=== PATIENT | male | born 1950 | race Caucasian/White ===

== ENCOUNTER 2016-11-04 14:14 | Inpatient (IN) | payer BC, OTHER ==
[~2016-11-04] VITALS: Ht 170.2 cm; Wt 91.7 kg
[~2016-11-04 14:14] MED LIST: AMLO-114 PO; LISI40TA PO; POTA-335 PO; ZFRODT4 SL; ZNTT/150 PO
[2016-11-04] MEDS ORDERED: PANTOprazole INJ 80 MG in DEXTROSE 5% 100ML 100 ML IV STA (14:31)
[2016-11-04] MEDS ORDERED: SODIUM CHLORIDE 0.9% 1000ML 500 ML IV STA (14:31)
--- NOTE | 2016-11-04 14:57 | EMERGENCY ROOM VISIT NOTE ---
History Report prepared by Derrick: Jessy Larsen Under the Supervision of: Dr. Moses Meneses M.D. First contact with patient: 14:27 Chief Complaint: VOMITING Stated Complaint: SICK TO STOMACH, VOMITING, REF BY DR Song Triage Summary: Triage note: Pt reports nausea, vomitting diarrhea since yesterday. pt girlfriend pt emesis yesterday looked coffee grounds. History of Present Illness The patient is a 66 year old male who presents to the Emergency Room with complaints of multiple episodes of vomiting occurring yesterday. He notes that the vomit looked like coffee grounds and he could taste blood in his mouth. The patient notes that he has not had a vomiting episode today. He notes epigastric abdominal pain and weakness. The patient states that he had a few pieces of toast this morning. Patient denies melena, history of stomach bleeds, blood thinner use, chest pain, or current nausea. He was referred to the ED by his PCP. Source of History: patient Onset: yesterday Position: other (global) Symptom Intensity: multiple Quality: other (vomiting) Timing: other (episodes) Associated Symptoms: + abdominal pain, + weakness, No chest pain, No melena Review of Systems See HPI for pertinent positives & negatives. A total of 10 systems reviewed and were otherwise negative. Past Medical & Surgical Medical Problems: (1) hemmoragic stroke (2) Kidney stones Family History Diabetes mellitus FH: heart disease FHx: gallbladder disease Hypertension Kidney stones Social History Smoking Status: Never Smoker Alcohol Use: none Marital Status: in relationship Housing Status: lives with significant other Occupation Status: retired Current/Historical Medications Scheduled Amlodipine Besylate (Amlodipine Besylate), 10 MG PO QPM Aspirin (Aspirin Ec), 81 MG PO QPM Lisinopril (Lisinopril), 10 MG PO QPM Multivitamin (Multivitamin), 1 TAB PO QPM Ranitidine HCl (Ranitidine HCl), 150 MG PO QPM Simvastatin (Zocor), 10 MG PO QPM Allergies Coded Allergies: Penicillins (Verified Allergy, Mild, 11/04/16) [place] (Verified Allergy, Unknown, 11/04/16) Physical Exam Vital Signs Date Time Temp Pulse Resp B/P Pulse Ox O2 Delivery O2 Flow Rate FiO2 11/04/16 15:14 77 11/04/16 14:49 Room Air 11/04/16 14:19 37.1 89 20 132/87 93 Room Air Physical Exam GENERAL: Patient is in no acute distress. HEENT: No acute trauma, normocephalic atraumatic, mucous membranes moist, no nasal congestion, no scleral icterus. NECK: No stridor, no adenopathy, no meningismus, trachea is midline. LUNGS: Clear to auscultation bilaterally, no wheeze, no rhonchi, breath sounds equal. HEART: Without murmurs gallops or rubs, regular rate and rhythm. ABDOMEN: Soft, nontender, bowel sounds positive, no hernias, no peritonitis. RECTAL: Dark stool, quickly heme positive. EXTREMITIES: No cyanosis or edema, full range of motion of all the joints without pain or difficulty, no signs for acute trauma. NEUROLOGIC: Oriented x 3, no acute motor or sensory deficits, no focal weakness. SKIN: No rash, no jaundice, no diaphoresis. Pale. Medical Decision & Procedures ER Provider Diagnostic Interpretation: X-ray results as stated below per interpretation by me and the radiologist: CHEST ONE VIEW PORTABLE CLINICAL HISTORY: Vomiting. GI bleed. COMPARISON STUDY: Chest radiograph February 27, 2008 FINDINGS: There is no pneumothorax. Lung volumes are diminished. There is mild left basilar opacity. Pulmonary vascularity is normal. Moderate enlargement of the cardiac silhouette is noted. IMPRESSION: 1. Diminished lung volumes with mild left basilar opacity which favors atelectasis. 2. Borderline cardiomegaly. No pulmonary edema. Electronically signed by: Drake Ryan M.D. 11/04/2016 3:12 PM Dictated Date/Time: 11/04/2016 3:11 PM Laboratory Results 11/04/16 14:43 Red Blood Count 4.79, Mean Corpuscular Volume 85.6, Mean Corpuscular Hemoglobin 29.2, Mean Corpuscular Hemoglobin Concent 34.1, Mean Platelet Volume 8.4, Neutrophils (%) (Auto) 62.7, Lymphocytes (%) (Auto) 25.1, Monocytes (%) (Auto) 9.8, Eosinophils (%) (Auto) 2.1, Basophils (%) (Auto) 0.2, Neutrophils # (Auto) 5.58, Lymphocytes # (Auto) 2.24, Monocytes # (Auto) 0.87, Eosinophils # (Auto) 0.19, Basophils # (Auto) 0.02 1/20/17 14:43 Test 11/04/16 14:43 White Blood Count 8.91 K/uL (4.8-10.8) Red Blood Count 4.79 M/uL (4.7-6.1) Hemoglobin 14.0 g/dL (14.0-18.0) Hematocrit 41.0 % (42-52) Mean Corpuscular Volume 85.6 fL (80-100) Mean Corpuscular Hemoglobin 29.2 pg (25-34) Mean Corpuscular Hemoglobin Concent 34.1 g/dl (32-36) Platelet Count 278 K/uL (130-400) Mean Platelet Volume 8.4 fL (7.4-10.4) Neutrophils (%) (Auto) 62.7 % Lymphocytes (%) (Auto) 25.1 % Monocytes (%) (Auto) 9.8 % Eosinophils (%) (Auto) 2.1 % Basophils (%) (Auto) 0.2 % Neutrophils # (Auto) 5.58 K/uL (1.4-6.5) Lymphocytes # (Auto) 2.24 K/uL (1.2-3.4) Monocytes # (Auto) 0.87 K/uL (0.11-0.59) Eosinophils # (Auto) 0.19 K/uL (0-0.5) Basophils # (Auto) 0.02 K/uL (0-0.2) RDW Standard Deviation 43.5 fL (36.4-46.3) RDW Coefficient of Variation 14.0 % (11.5-14.5) Immature Granulocyte % (Auto) 0.1 % Immature Granulocyte # (Auto) 0.01 K/uL (0.00-0.02) Prothrombin Time 10.5 SECONDS (9.0-12.0) Prothromb Time International Ratio 1.0 (0.9-1.1) Activated Partial Thromboplast Time 26.8 SECONDS (21.0-31.0) Partial Thromboplastin Ratio 1.0 Anion Gap 10.0 mmol/L (3-11) Est Creatinine Clear Calc Drug Dose 60.4 ml/min Estimated GFR () 65.9 Estimated GFR (Non- 56.9 BUN/Creatinine Ratio 14.1 (10-20) Calcium Level 8.4 mg/dl (8.5-10.1) Total Bilirubin 0.9 mg/dl (0.2-1) Aspartate Amino Transf (AST/SGOT) 18 U/L (15-37) Alanine Aminotransferase (ALT/SGPT) 18 U/L (12-78) Alkaline Phosphatase 54 U/L (45-117) Total Protein 7.1 gm/dl (6.4-8.2) Albumin 3.5 gm/dl (3.4-5.0) Globulin 3.6 gm/dl (2.5-4.0) Albumin/Globulin Ratio 1.0 (0.9-2) Lipase 150 U/L (73-393) Laboratory results reviewed by me. Medications Administered Medications (Trade) Dose Ordered Sig/Kavita Route Start Time Stop Time Status Last Admin Dose Admin Sodium Chloride 500 ml @ 999 mls/hr Q31M STAT IV 11/04/16 14:31 11/04/16 15:02 DC 11/04/16 14:55 999 MLS/HR Pantoprazole Sodium/Dextrose (Protonix Inj/D5 100ml) 120 ml @ 400 mls/hr NOW STAT IV 11/04/16 14:31 11/04/16 14:48 DC 11/04/16 15:17 400 MLS/HR ECG Indication: vomiting Rate (beats per minute): 89 Rhythm: normal sinus Findings: no acute ischemic change, no ectopy ED Course 1429: The patient was evaluated in room B5. A complete history and physical exam was performed. 1431: Pantoprazole Sodium 80 mg/ Dextrose 120 ml @ 400 mls/hr IV, Sodium Chloride 500 ml @ 999 mls/hr IV. 1544: Discussed the patient's case with Dr. Mills - [facility] [place] The patient will be evaluated for further management. Medical Decision The patient is a 66 year old male who presents to the ED with complaints of vomiting. Differential diagnoses considered include upper or lower GI bleeding , ulcer, gastritis, anemia, dehydration, electrolyte imbalance, viral illness. There is no leukocytosis or concerning anemia. No significant electrolyte abnormality, kidney failure, hepatitis or pancreatitis. There is no coagulopathy. EKG shows a sinus rhythm, there is no acute ischemia. On my exam , the stool was dark in color and heme positive. The patient received IV saline and IV Protonix. He did not need anything for nausea or pain. The patient is likely suffering from some upper GI bleeding. He describes hematemesis yesterday and today his stool is heme positive by my testing. Given the findings, admission/observation is warranted. I spoke to the patient and case management. The on-call hospitalist was consulted. Consults Time Called: 154 Consulting Physician: Dr. Gene HUTCHISON Returned Call: [phone] Discussed the patient's case. The patient will be evaluated for further management. Impression Primary Impression: Hematemesis Additional Impression: GI bleeding Scribe Attestation The scribe's documentation has been prepared under my direction and personally reviewed by me in its entirety. I confirm that the note above accurately reflects all work, treatment, procedures, and medical decision making performed by me. Departure Information Dispostion Being Evaluated By Hospitalist Referrals Tara Polanco C.R.N.P. (PCP) Problem Qualifiers
[2016-11-04 15:04] LABS: BASO % 0.2 %; BASO ABS # 0.02 K/uL (0-0.2); COMPLETE YES; EOS % 2.1 %; IG% 0.1 %; LYMPH % 25.1 %; LYMPH ABS # 2.24 K/uL (1.2-3.4); MEAN CELL VOLUME 85.6 fL (80-100); MEAN CORPUSCULAR HEMOGLOBIN 29.2 pg (25-34); MEAN CORPUSCULAR HGB CONC 34.1 g/dl (32-36); MEAN PLATELET VOLUME 8.4 fL (7.4-10.4); MONO % 9.8 %; NEUT % 62.7 %; PLATELET COUNT 278 K/uL (130-400); RED BLOOD COUNT 4.79 M/uL (4.7-6.1); WHITE BLOOD COUNT 8.91 K/uL (4.8-10.8)
[2016-11-04 15:12] LABS: PROTHROMBIN TIME (PATIENT) 10.5 SECONDS (9.0-12.0)
--- NOTE | 2016-11-04 15:14 | DIAGNOSTIC IMAGING REPORT ---
CHEST ONE VIEW PORTABLE CLINICAL HISTORY: Vomiting. GI bleed. COMPARISON STUDY: Chest radiograph February 27, 2008 FINDINGS: There is no pneumothorax. Lung volumes are diminished. There is mild left basilar opacity. Pulmonary vascularity is normal. Moderate enlargement of the cardiac silhouette is noted. IMPRESSION: 1. Diminished lung volumes with mild left basilar opacity which favors atelectasis. 2. Borderline cardiomegaly. No pulmonary edema. Electronically signed by: Drake Ryan M.D. 11/04/2016 3:12 PM Dictated Date/Time: 11/04/2016 3:11 PM
[2016-11-04 15:21] LABS: BUN/CREATININE RATIO 14.1 (10-20); CALCIUM 8.4 mg/dl (8.5-10.1); CREATININE 1.3 mg/dl (0.60-1.40); POTASSIUM 3.7 mmol/L (3.5-5.1)
[2016-11-04] MEDS ORDERED: ZNT150 PO (15:25)
[2016-11-04] MEDS ORDERED: SIMV10TA2 PO (15:25)
[2016-11-04] MEDS ORDERED: ASPI81TA28 PO (15:25)
[2016-11-04] MEDS ORDERED: MULT-506 PO (15:25)
[2016-11-04] MEDS ORDERED: LISI-461 PO (15:25)
[2016-11-04] MEDS ORDERED: NRV/10 PO (15:25)
[2016-11-04] MEDS ORDERED: ONDANSETRON INJ 2 MG/ML 2 ML VIAL IV PRN (16:30)
[2016-11-04] MEDS ORDERED: DiphenhydrAMINE HCL 50 MG/ML VIAL IV PRN (16:30)
[2016-11-04] MEDS ORDERED: LORAZEPAM 2 MG/ML 1 ML VIAL IV PRN (16:30)
[2016-11-04] MEDS ORDERED: HydrALAZINE HCL 20 MG/ML VIAL IV. PRN ×2 (16:30→20:30)
[2016-11-04] MEDS ORDERED: ACETAMINOPHEN IV 100 ML IV PRN (16:30)
[2016-11-04] MEDS ORDERED: MoRPHine SULFATE 2 MG/ML CARP IV PRN (16:30)
[2016-11-04] MEDS ORDERED: PROMETHAZINE HCL INJ 12.5 MG in SODIUM CHLORIDE 0.9% 50ML 50 ML IV PRN (16:30)
[2016-11-04] MEDS ORDERED: NITROGLYCERIN 0.4 MG SL PER TAB CHARGE SL PRN (16:30)
[2016-11-04 17:50] LABS: HEMATOCRIT 39.6 % (42-52)
[2016-11-04 18:12] VITALS: BP 114/75; PULSE 79; TEMP 36.7; O2SAT 95; Ht 170.2 cm; Wt 91.7 kg
[2016-11-04] MEDS: PANTOprazole INJ 40 MG in DEXTROSE 5% 100ML IV SCH ×2 (18:42→23:03)
[2016-11-04] MEDS: NSS + 20MEQ KCL 1000ML 1,000 ML IV SCH (18:42)
[2016-11-04] MEDS ORDERED: PANTOprazole INJ 80 MG in DEXTROSE 5% 100ML IV ONE (18:45)
[2016-11-04 19:02] VITALS: BP 109/75; PULSE 73; TEMP 37; O2SAT 92
--- NOTE | 2016-11-04 20:29 | History and Physical ---
History & Physical Date & Time of Service: Nov 04, 2016 at 20:15 Chief Complaint: Acute Upper Gi Bleeding,Hematemesis Primary Care Physician: Tara Polanco C.R.N.P. History of Present Illness Source: patient, spouse The patient is a 66-year-old male presents emergency department with complaint of frequent episodes of coffee-ground vomiting that occurred yesterday, and has had epigastric abdominal discomfort, generalized weakness and loose stools today. He does have a history of a hemorrhagic stroke, and does take aspirin 81 mg daily around 5 or 6:00 every evening with supper. He's had no blood in stool he had no wes blood in emesis. 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 She reports that he is disabled, and goes outside the house very infrequently, and there are no sick people that commonly enter the house. She also reports that he does have persistent left lower extremity weakness and has had persistent bilateral hand tingling as well since the previous stroke. Family History Diabetes mellitus FH: heart disease FHx: gallbladder disease Hypertension Kidney stones Social History Smoking Status: Never Smoker Smokeless Tobacco Use: No Alcohol Use: none Drug Use: none Marital Status: , in relationship Housing status: lives with family Occupational Status: retired Immunizations History of Influenza Vaccine: No History of Tetanus Vaccine?: No History of Pneumococcal: No History of Hepatitis B Vaccine: No Multi-Drug Resistant Organisms History of MDRO: No Allergies Coded Allergies: Penicillins (Verified Allergy, Mild, 11/04/16) [place] (Verified Allergy, Unknown, 11/04/16) Home Medications Scheduled Amlodipine Besylate (Amlodipine Besylate), 10 MG PO QPM Aspirin (Aspirin Ec), 81 MG PO QPM Lisinopril (Lisinopril), 10 MG PO QPM Multivitamin (Multivitamin), 1 TAB PO QPM Ranitidine HCl (Ranitidine HCl), 150 MG PO QPM Simvastatin (Zocor), 10 MG PO QPM Review of Systems The patient denies chest pain, palpitations, shortness of breath, cough, lower extremity swelling, vision change, hearing change, sore throat, fevers, chills, sweats, weight change, blood in urine or stool, dysuria, urinary frequency or urgency, lightheadedness, dizziness, headache, rash, abnormal bruising , imbalance, arthralgias or myalgias, back or neck pain, night sweats, or allergy symptoms. The review of systems is otherwise negative other than for that already noted above, and at least 10 systems have been reviewed. Physical Exam Vital Signs Date Time Temp Pulse Resp B/P Pulse Ox O2 Delivery O2 Flow Rate FiO2 11/04/16 19:02 37.0 73 16 109/75 92 Room Air 11/04/16 18:12 36.7 79 18 114/75 95 Room Air 11/04/16 16:27 74 19 111/76 93 11/04/16 15:14 77 11/04/16 14:49 Room Air 11/04/16 14:19 37.1 89 20 132/87 93 Room Air The patient is awake, alert and oriented 3, normocephalic and atraumatic, is slow with answers, lying in bed and in no acute distress. HEENT--PERRL, EOMI, mucous membranes moist, and oropharynx normal. Neck--supple, no JVD or bruits, thyroid normal, trachea midline, no adenopathy. Heart--normal S1 and S2, no extra beats, no murmurs, rubs or gallops. Lungs--clear bilaterally with good air movement, no respiratory distress, no accessory muscle use. Abdomen--normal bowel sounds and soft, nontender and nondistended, no hernias or masses, no organomegaly. Extremities--no cyanosis, clubbing or edema. There are good distal pulses b/l. Dermatologic--normal skin turgor, normal color, warm and dry, no abnormal lymph nodes, no rash. Neurologic--cranial nerves II through XII grossly intact, regional liaison strength even upper extremities, with left lower extremity 4+ out of 5 compared to right 5 out of 5. Psychiatric--normal affect. Diagnostics Laboratory Results Results Past 24 Hours Test 11/04/16 14:43 11/04/16 17:32 Range/Units White Blood Count 8.91 4.8-10.8 K/uL Red Blood Count 4.79 4.7-6.1 M/uL Hemoglobin 14.0 13.2 14.0-18.0 g/dL Hematocrit 41.0 39.6 42-52 % Mean Corpuscular Volume 85.6 80-100 fL Mean Corpuscular Hemoglobin 29.2 25-34 pg Mean Corpuscular Hemoglobin Concent 34.1 32-36 g/dl Platelet Count 278 130-400 K/uL Mean Platelet Volume 8.4 7.4-10.4 fL Neutrophils (%) (Auto) 62.7 % Lymphocytes (%) (Auto) 25.1 % Monocytes (%) (Auto) 9.8 % Eosinophils (%) (Auto) 2.1 % Basophils (%) (Auto) 0.2 % Neutrophils # (Auto) 5.58 1.4-6.5 K/uL Lymphocytes # (Auto) 2.24 1.2-3.4 K/uL Monocytes # (Auto) 0.87 0.11-0.59 K/uL Eosinophils # (Auto) 0.19 0-0.5 K/uL Basophils # (Auto) 0.02 0-0.2 K/uL RDW Standard Deviation 43.5 36.4-46.3 fL RDW Coefficient of Variation 14.0 11.5-14.5 % Immature Granulocyte % (Auto) 0.1 % Immature Granulocyte # (Auto) 0.01 0.00-0.02 K/uL Prothrombin Time 10.5 9.0-12.0 SECONDS Prothromb Time International Ratio 1.0 0.9-1.1 Activated Partial Thromboplast Time 26.8 21.0-31.0 SECONDS Partial Thromboplastin Ratio 1.0 Sodium Level 138 136-145 mmol/L Potassium Level 3.7 3.5-5.1 mmol/L Chloride Level 105 98-107 mmol/L Carbon Dioxide Level 23 21-32 mmol/L Anion Gap 10.0 3-11 mmol/L Blood Urea Nitrogen 18 7-18 mg/dl Creatinine 1.30 0.60-1.40 mg/dl Est Creatinine Clear Calc Drug Dose 60.4 ml/min Estimated GFR () 65.9 Estimated GFR (Non- 56.9 BUN/Creatinine Ratio 14.1 10-20 Random Glucose 101 70-99 mg/dl Calcium Level 8.4 8.5-10.1 mg/dl Total Bilirubin 0.9 0.2-1 mg/dl Aspartate Amino Transf (AST/SGOT) 18 15-37 U/L Alanine Aminotransferase (ALT/SGPT) 18 12-78 U/L Alkaline Phosphatase 54 45-117 U/L Total Protein 7.1 6.4-8.2 gm/dl Albumin 3.5 3.4-5.0 gm/dl Globulin 3.6 2.5-4.0 gm/dl Albumin/Globulin Ratio 1.0 0.9-2 Lipase 150 73-393 U/L Diagnostic Radiology Patient Name: DOMO YODER Unit Number: [id number] Dictated: 11/04/161510 Transcribed: 11/04/161510 Printed Date/Time: [~ rep prt dt]/[~ rep prt tm] [~ rep ct labl] - [~ rep ct ivnm] [facility] Radiology Department [place], [place] [id number] Dictated: 11/04/161510 Transcribed: 11/04/161510 Printed Date/Time: [~ rep prt dt]/[~ rep prt tm] [~ rep ct labl] - [~ rep ct ivnm] CHEST ONE VIEW PORTABLE CLINICAL HISTORY: Vomiting. GI bleed. COMPARISON STUDY: Chest radiograph February 27, 2008 FINDINGS: There is no pneumothorax. Lung volumes are diminished. There is mild left basilar opacity. Pulmonary vascularity is normal. Moderate enlargement of the cardiac silhouette is noted. IMPRESSION: 1. Diminished lung volumes with mild left basilar opacity which favors atelectasis. 2. Borderline cardiomegaly. No pulmonary edema. Electronically signed by: Drake Ryan M.D. 11/04/2016 3:12 PM Dictated Date/Time: 11/04/2016 3:11 PM The status of this report is Signed. Draft = Not yet reviewed or approved by Radiologist. Signed = Reviewed and approved by Radiologist. <AttendingPhy></AttendingPhy> <FamilyPhy>Tara Polanco C.R.N.P.</FamilyPhy> <PrimaryPhy>Tara Polanco C.R.N.P.</PrimaryPhy> <UnitNumber>[id number]</ UnitNumber> <VisitNumber>[id number]</VisitNumber> <PatientName>DOMO YODER</ PatientName> <DateOfBirth>1950</DateOfBirth> <Location>C.EDB</Location> < ServiceDate>11/04/16</ServiceDate> <MNE>ESINDI</MNE> <OrderingPhy>Moses Meneses M.D.</OrderingPhy> <OrderingPhyMNE>f rep ord dr wei</OrderingPhyMNE> < DictatingPhyMNE>f rep dict dr wei</DictatingPhyMNE> <CCListMNE>f rep ct sanjuana</ CCListMNE> <AdmittingPhyMNE>f pt admit dr wei</AdmittingPhyMNE> <AttendingPhyMNE >f pt attend dr wei</AttendingPhyMNE> <ConsultingPhyMNE>f pt consult dr wei</ConsultingPhyMNE> <FamilyPhyMNE>f pt fam dr wei</FamilyPhyMNE> <OtherPhyMNE>f pt other dr wei</OtherPhyMNE> < PrimaryPhyMNE>f pt prim care dr wei</PrimaryPhyMNE> <ReferringPhyMNE>f pt referring dr wei</ReferringPhyMNE> EKG EKG shows normal sinus rhythm at 89 bpm, there are no acute ST-T changes. Impression Assessment and Plan Upper GI bleed, may be secondary to chronic aspirin use--the patient will be admitted to the telemetry unit, for serial cardiac enzymes, cardiac rhythm monitoring, H&H every 6 hours 48 hours. He will be kept nothing by mouth, and will be placed on Protonix bolus followed by continuous drip. We'll consult gastroenterology for possible EGD. 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 We'll have available hydralazine 10 mg IV every 4 hours when necessary systolic blood pressure greater than 140. Hypercholesterolemia--will hold simvastatin 10 mg by mouth every afternoon on by mouth. GERD--hold ranitidine 150 mg by mouth every afternoon in favor of Protonix drip as noted above. Level of Care Telemetry Advanced Directives Existing Advance Directive: No Existing Living Will: No Existing Power of Terminal Gauger Supervisor: No Resuscitation Status FULL RESUSCITATION VTE Prophylaxis VTE Risk Assessment Done? Y/N: Yes Risk Level: Moderate Given or contraindicated: SCD's Social Service Consult None Apply
[2016-11-04 22:46] LABS: HEMATOCRIT 38.4 % (42-52)
[2016-11-04 23:17] VITALS: BP 112/82; PULSE 76; TEMP 36.8; O2SAT 94
[2016-11-05] VITALS (8 sets, daily range): BP systolic 105–116; BP diastolic 70–72; PULSE 66–69; TEMP 36.3–37; O2SAT 92–95
[2016-11-05] MEDS: NSS + 20MEQ KCL 1000ML 1,000 ML IV SCH ×3 (02:55→20:05)
[2016-11-05] MEDS: PANTOprazole INJ 40 MG in DEXTROSE 5% 100ML IV SCH ×4 (03:58→20:05)
[2016-11-05 05:11] LABS: BASO % 0.2 %; BASO ABS # 0.02 K/uL (0-0.2); COMPLETE YES; EOS % 3.8 %; HEMATOCRIT 35.8 % (42-52); IG% 0.2 %; LYMPH % 24.2 %; LYMPH ABS # 2.71 K/uL (1.2-3.4); MEAN CELL VOLUME 85.6 fL (80-100); MEAN CORPUSCULAR HEMOGLOBIN 28.7 pg (25-34); MEAN CORPUSCULAR HGB CONC 33.5 g/dl (32-36); MEAN PLATELET VOLUME 8.3 fL (7.4-10.4); MONO % 10.3 %; NEUT % 61.3 %; PLATELET COUNT 250 K/uL (130-400); RED BLOOD COUNT 4.18 M/uL (4.7-6.1)
[2016-11-05 05:33] LABS: PROTHROMBIN TIME (PATIENT) 10.9 SECONDS (9.0-12.0)
[2016-11-05 05:38] LABS: BUN/CREATININE RATIO 11.4 (10-20); CALCIUM 7.9 mg/dl (8.5-10.1); CREATININE 1.2 mg/dl (0.60-1.40); MAGNESIUM 2.1 mg/dl (1.8-2.4); POTASSIUM 3.9 mmol/L (3.5-5.1)
[2016-11-05 10:25] LABS: HEMATOCRIT 36.4 % (42-52)
--- NOTE | 2016-11-05 14:09 | Medical Consult ---
Consultation Note Consultation Note Reason for consult: UGIB History of Present Illness [facility] 66 [facility] [place] until last Monday when he developed loose stool, nausea, and upper abdominal discomfort. On Monday, he had four episodes of coffee ground emesis. He denies hematochezia, dark stool, or wes blood in vomitus. Takes low dose ASA daily, o/w no NSAIDs. He takes daily zantac. On presentation to ER, he was normotensive, without abd tenderness, with rectal exam showing heme pos dark stool. His admission BUN was normal, and Hgb was 14. Overnight, he was given protonix gtt. His hgb fell from 14 to 12 this morning. At present he is hungry. His nausea, loose stool, and abdominal discomfort have completely resolved. PMH as above, also kidney stones SH: , no tob or alcohol Allergies Coded Allergies: Penicillins (Verified Allergy, Mild, 11/04/16) [place] (Verified Allergy, Unknown, 11/04/16) Home Medications Amlodipine Besylate (Amlodipine Besylate), 10 MG PO QPM Aspirin (Aspirin Ec), 81 MG PO QPM Lisinopril (Lisinopril), 10 MG PO QPM Multivitamin (Multivitamin), 1 TAB PO QPM Ranitidine HCl (Ranitidine HCl), 150 MG PO QPM Simvastatin (Zocor), 10 MG PO QPM Review of Systems The patient denies chest pain, palpitations, shortness of breath, cough, lower extremity swelling, vision change, hearing change, sore throat, fevers, chills, sweats, weight change, blood in urine or stool, dysuria, urinary frequency or urgency, lightheadedness, dizziness, headache, rash, abnormal bruising , imbalance, arthralgias or myalgias, back or neck pain, night sweats, or allergy symptoms. The review of systems is otherwise negative other than for that already noted above, and at least 10 systems have been reviewed. Physical Exam Vital Signs Past 12 Hours Date Time Temp Pulse Resp B/P Pulse Ox O2 Delivery O2 Flow Rate FiO2 11/05/16 12:00 92 Room Air 11/05/16 11:45 36.6 66 20 112/72 94 Room Air 11/05/16 08:00 92 Room Air 11/05/16 07:58 36.6 69 20 105/71 95 Room Air 11/05/16 04:00 Room Air 11/05/16 03:30 36.3 66 18 111/72 92 Room Air Appears comfortable, in NAD. HEENT--PERRL, EOMI, mucous membranes moist, and oropharynx normal. Neck--supple, no JVD or bruits, thyroid normal, trachea midline, no adenopathy. Heart--normal S1 and S2, no extra beats, no murmurs, rubs or gallops. Lungs--clear bilaterally with good air movement, no respiratory distress, no accessory muscle use. Abdomen--normal bowel sounds and soft, nontender and nondistended, no hernias or masses, no organomegaly. Extremities--no cyanosis, clubbing or edema. There are good distal pulses b/l. Dermatologic--normal skin turgor, normal color, warm and dry, no abnormal lymph nodes, no rash. 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 Psychiatric--normal affect. He answers all questions appropriately. Speech is normal rate, thought is lucid. Diagnostics Laboratory Results Results Past 24 Hours Test 11/04/16 14:43 11/04/16 17:32 Range/Units White Blood Count 8.91 4.8-10.8 K/uL Red Blood Count 4.79 4.7-6.1 M/uL Hemoglobin 14.0 13.2 14.0-18.0 g/dL Hematocrit 41.0 39.6 42-52 % Mean Corpuscular Volume 85.6 80-100 fL Mean Corpuscular Hemoglobin 29.2 25-34 pg Mean Corpuscular Hemoglobin Concent 34.1 32-36 g/dl Platelet Count 278 130-400 K/uL Mean Platelet Volume 8.4 7.4-10.4 fL Neutrophils (%) (Auto) 62.7 % Lymphocytes (%) (Auto) 25.1 % Monocytes (%) (Auto) 9.8 % Eosinophils (%) (Auto) 2.1 % Basophils (%) (Auto) 0.2 % Neutrophils # (Auto) 5.58 1.4-6.5 K/uL Lymphocytes # (Auto) 2.24 1.2-3.4 K/uL Monocytes # (Auto) 0.87 0.11-0.59 K/uL Eosinophils # (Auto) 0.19 0-0.5 K/uL Basophils # (Auto) 0.02 0-0.2 K/uL RDW Standard Deviation 43.5 36.4-46.3 fL RDW Coefficient of Variation 14.0 11.5-14.5 % Immature Granulocyte % (Auto) 0.1 % Immature Granulocyte # (Auto) 0.01 0.00-0.02 K/uL Prothrombin Time 10.5 9.0-12.0 SECONDS Prothromb Time International Ratio 1.0 0.9-1.1 Activated Partial Thromboplast Time 26.8 21.0-31.0 SECONDS Partial Thromboplastin Ratio 1.0 Sodium Level 138 136-145 mmol/L Potassium Level 3.7 3.5-5.1 mmol/L Chloride Level 105 98-107 mmol/L Carbon Dioxide Level 23 21-32 mmol/L Anion Gap 10.0 3-11 mmol/L Blood Urea Nitrogen 18 7-18 mg/dl Creatinine 1.30 0.60-1.40 mg/dl Est Creatinine Clear Calc Drug Dose 60.4 ml/min Estimated GFR () 65.9 Estimated GFR (Non- 56.9 BUN/Creatinine Ratio 14.1 10-20 Random Glucose 101 70-99 mg/dl Calcium Level 8.4 8.5-10.1 mg/dl Total Bilirubin 0.9 0.2-1 mg/dl Aspartate Amino Transf (AST/SGOT) 18 15-37 U/L Alanine Aminotransferase (ALT/SGPT) 18 12-78 U/L Alkaline Phosphatase 54 45-117 U/L Total Protein 7.1 6.4-8.2 gm/dl Albumin 3.5 3.4-5.0 gm/dl Globulin 3.6 2.5-4.0 gm/dl Albumin/Globulin Ratio 1.0 0.9-2 Lipase 150 73-393 U/L Assessment and Plan His history seems to suggest that he had a gastroenteritis, followed by UGIB. His UGIB is likely related to esophagitis, or possibly a MW tear; PUD may also be possible. Notably, he does not have elevation of his BUN or a sig hgb drop. WIll plan for EGD today; if low risk for re-bleed, please adv his diet, resume his aspirin, and plan for discharge. Of note, there is no benefit to PPI gtt over twice daily PPI therapy in pts who have not undergone endoscopic intervention, and no need for cont PPI infusion in this pt at this time.
[2016-11-05] MEDS ORDERED: FENTANYL CITRATE INJ 50 MCG/1 ML 2 ML VIAL ONE (14:11)
[2016-11-05] MEDS ORDERED: MIDAZOLAM HCL 5 MG/ML 1 ML VIAL ONE (14:11)
[2016-11-05] MEDS ORDERED: MIDAZOLAM HCL 5 MG/ML 1 ML VIAL IV STA (14:11)
[2016-11-05] MEDS ORDERED: FENTANYL CITRATE INJ 50 MCG/1 ML 2 ML VIAL IV ONE (14:15)
--- NOTE | 2016-11-05 14:54 | GI REPORT ---
Procedure Date: 11/05/2016 2:16 PM Procedure: Upper GI endoscopy Indications: Coffee-ground emesis Medicines: Midazolam 2.5 mg IV, Fentanyl 50 micrograms IV Complications: No immediate complications. Estimated Blood Loss: Estimated blood loss: none. Procedure: Pre-Anesthesia Assessment: - ASA Grade Assessment: III - A patient with severe systemic disease. After obtaining informed consent, the endoscope was passed under direct vision. Throughout the procedure, the patient's blood pressure, pulse, and oxygen saturations were monitored continuously. The scope was introduced through the mouth, and advanced to the second part of duodenum. The upper GI endoscopy was accomplished without difficulty. The patient tolerated the procedure well. Findings: There was circumferential ulceration of the mucosa in the lower esophagus, beginning at the GE junction and extending proximally 4-5 cm, consistent with LA class D esophagitis. There was a clot without oozing that could not be displaced with lavage in the lower esophagus. There was a moderately obstructing ring at the GE junction. Just proximal to this ring, there appeared to be a small diverticulum. There was a large hiatal hernia. The mucosa of the stomach was entirely normal. There was some mild patchy erythema of the duodenal bulb. There was a prominent fold at the apex of the bulb; the base of this fold was closely inspected, and no ulcer was noted. The second portion of the duodenum was normal. Impression: - LA Grade D esophagitis, with clot without oozing. - Ring. Possible small diverticulum. - Large hiatal hernia. Recommendation: - Discharge patient to general medical floor. Continue IV PPI gtt overnight, then change to oral BID tomorrow. Would remain on full liquids today, then adv to soft mech tomorrow. Anticipate discharge home tomorrow if no evidence ofrecurrent bleeding. Alhaji Leigh M.D. Alhaji Leigh MD 11/05/2016 2:53:29 PM This report has been signed electronically. Note Initiated On: 11/05/2016 2:16 PM
[2016-11-05 16:48] LABS: HEMATOCRIT 38.9 % (42-52)
--- NOTE | 2016-11-05 20:57 | Progress Note ---
Subjective Date of Service: Nov 05, 2016. Subjective Pt evaluation today including: conversation w/ patient, conversation w/ family (girlfriend, daughter), physical exam, chart review, lab review, review of studies (EGD) Pain: denies GERD symptoms or abd pain PO Intake: npo Voiding: no voiding problems tele stable since admission no further coffee ground emesis, no lower GI bleeding either feeling better Problem List Medical Problems: (1) GI bleeding Status: Acute (2) Hematemesis Status: Acute Review of Systems Respiratory: No shortness of breath Cardiac: No chest pain Abdomen: No pain Objective Vital Signs Date Time Temp Pulse Resp B/P Pulse Ox O2 Delivery O2 Flow Rate FiO2 11/05/16 19:36 37.0 69 18 109/72 94 Room Air 11/05/16 16:00 92 Room Air 11/05/16 16:00 36.8 68 18 116/70 95 Room Air 11/05/16 15:08 70 20 117/70 99 Room Air 11/05/16 14:55 71 20 112/78 98 Room Air 11/05/16 14:40 73 20 114/72 97 Room Air 11/05/16 14:35 95 20 114/75 99 Nasal Cannula 4 11/05/16 14:30 67 20 115/79 98 Nasal Cannula 4 11/05/16 14:25 63 20 114/40 97 Nasal Cannula 4 11/05/16 14:15 36.6 64 20 114/70 97 Room Air 11/05/16 12:00 92 Room Air 11/05/16 11:45 36.6 66 20 112/72 94 Room Air 11/05/16 08:00 92 Room Air 11/05/16 07:58 36.6 69 20 105/71 95 Room Air 11/05/16 04:00 Room Air 11/05/16 03:30 36.3 66 18 111/72 92 Room Air 11/04/16 23:59 Room Air 11/04/16 23:17 36.8 76 18 112/82 94 Room Air Physical Exam General Appearance: no apparent distress ENT: pharynx normal Neck: no JVD Respiratory/Chest: lungs clear, no respiratory distress, no accessory muscle use Cardiovascular: regular rate, rhythm, no gallop, no murmur Abdomen: normal bowel sounds, non tender, soft, no organomegaly Extremities: no pedal edema Neurologic/Psychiatric: alert Laboratory Results Last 24 Hours Test 11/04/16 22:32 11/05/16 04:45 11/05/16 10:17 11/05/16 16:37 Hemoglobin 12.8 g/dL 12.0 g/dL 11.9 g/dL 13.0 g/dL Hematocrit 38.4 % 35.8 % 36.4 % 38.9 % White Blood Count 11.20 K/uL Red Blood Count 4.18 M/uL Mean Corpuscular Volume 85.6 fL Mean Corpuscular Hemoglobin 28.7 pg Mean Corpuscular Hemoglobin Concent 33.5 g/dl Platelet Count 250 K/uL Mean Platelet Volume 8.3 fL Neutrophils (%) (Auto) 61.3 % Lymphocytes (%) (Auto) 24.2 % Monocytes (%) (Auto) 10.3 % Eosinophils (%) (Auto) 3.8 % Basophils (%) (Auto) 0.2 % Neutrophils # (Auto) 6.88 K/uL Lymphocytes # (Auto) 2.71 K/uL Monocytes # (Auto) 1.15 K/uL Eosinophils # (Auto) 0.42 K/uL Basophils # (Auto) 0.02 K/uL RDW Standard Deviation 43.4 fL RDW Coefficient of Variation 13.9 % Immature Granulocyte % (Auto) 0.2 % Immature Granulocyte # (Auto) 0.02 K/uL Prothrombin Time 10.9 SECONDS Prothromb Time International Ratio 1.0 Activated Partial Thromboplast Time 27.2 SECONDS Partial Thromboplastin Ratio 1.0 Sodium Level 141 mmol/L Potassium Level 3.9 mmol/L Chloride Level 110 mmol/L Carbon Dioxide Level 25 mmol/L Anion Gap 6.0 mmol/L Blood Urea Nitrogen 14 mg/dl Creatinine 1.20 mg/dl Est Creatinine Clear Calc Drug Dose 65.4 ml/min Estimated GFR () 72.6 Estimated GFR (Non- 62.6 BUN/Creatinine Ratio 11.4 Random Glucose 96 mg/dl Calcium Level 7.9 mg/dl Magnesium Level 2.1 mg/dl Total Bilirubin 1.0 mg/dl Direct Bilirubin 0.2 mg/dl Aspartate Amino Transf (AST/SGOT) 11 U/L Alanine Aminotransferase (ALT/SGPT) 15 U/L Alkaline Phosphatase 42 U/L Total Protein 5.8 gm/dl Albumin 3.0 gm/dl Assessment and Plan 66yo male with: 1. upper GI bleeding 2nd to esophagitis - resolved. H/H stable. appreciate Dr. Leigh's consultation & EGD today. PPI drip overnight, then PPI by mouth BID tomorrow. diet started by GI. continue serial H/H's. 2. h/o stroke - noted. Hold aspirin 2nd to #1. 3. acute blood loss anemia - stable H/H today. 4. HTN - controlled. 5. vascular dementia - noted. 6. GERD - PPI. 7. DVT proph - SCDs. anticipate d/c tomorrow if H/H stable and tolerating diet. Continued [facility] stay due to: inadequate po fluid intake, multiple IV medications needed Discharge planning: home
[2016-11-06] VITALS (10 sets, daily range): BP systolic 107–121; BP diastolic 66–81; PULSE 56–72; TEMP 36.2–37; O2SAT 92–96
[2016-11-06] MEDS: PANTOprazole INJ 40 MG in DEXTROSE 5% 100ML IV SCH ×3 (00:55→10:26)
[2016-11-06 04:34] LABS: BASO % 0.3 %; BASO ABS # 0.02 K/uL (0-0.2); COMPLETE YES; EOS % 7.5 %; IG% 0.1 %; LYMPH % 34.5 %; LYMPH ABS # 2.61 K/uL (1.2-3.4); MEAN CELL VOLUME 86.2 fL (80-100); MEAN CORPUSCULAR HEMOGLOBIN 29.1 pg (25-34); MEAN CORPUSCULAR HGB CONC 33.7 g/dl (32-36); MEAN PLATELET VOLUME 8.2 fL (7.4-10.4); MONO % 10.2 %; NEUT % 47.4 %; PLATELET COUNT 225 K/uL (130-400); RED BLOOD COUNT 4.06 M/uL (4.7-6.1); WHITE BLOOD COUNT 7.57 K/uL (4.8-10.8)
[2016-11-06 04:52] LABS: BUN/CREATININE RATIO 7.5 (10-20); CALCIUM 8.3 mg/dl (8.5-10.1); CREATININE 1.2 mg/dl (0.60-1.40); POTASSIUM 4.2 mmol/L (3.5-5.1)
[2016-11-06] MEDS: NSS + 20MEQ KCL 1000ML 1,000 ML IV SCH (05:53)
[2016-11-06 10:28] LABS: HEMATOCRIT 40.6 % (42-52)
[2016-11-06] MEDS ORDERED: PANTOprazole SOD 40 MG TAB PO ONE (12:00)
--- NOTE | 2016-11-06 13:57 | Progress Note ---
Progress Note No events overnight. This am, feels well, so PO without difficulty. Abd soft NT Labs reviewed A/p: Gastroenteritis? UGIB secondary to esophagitis - Please d/c on BID PPI, soft mech diet. Will arrange for f/u EGD in 6-8 weeks.
[2016-11-06] MEDS ORDERED: PRT40 PO (14:53)
[2016-11-06] MEDS ORDERED: FRRS300 PO (15:01)
--- NOTE | 2016-11-06 15:01 | Discharge Instructions ---
Discharge Instructions Admission Reason for Admission: Acute Upper GI Bleeding Discharge Discharge Diagnosis / Problem: GI bleeding due to esophagitis (irritation of the lining of the esophagus) Discharge Goals Goal(s): Learn about illness, Diagnostic testing, Therapeutic intervention Activity Recommendations Activity Limitations: as noted below Lifting Limitations: gradually increase as tolerated Exercise/Sports Limitations: gradually increase as tolerated Shower/Bathe: no limitations Driving or Machine Use: no limitations . Instructions / Follow-Up Instructions / Follow-Up From Dr. Vogel - 1. For your esophagitis - * take protonix (pantoprazole) 40mg every AM and every evening at bedtime; new prescription provided * stop your zantac 2. Diet recommendations - * you may consume a typical regular diet but please ensure it is "mechanical soft" * avoid foods that are difficult to chew such as firm meats, hard bread, raw vegetables such as broccoli/carrots, etc * it is best to grind up the foods that you consume * avoid spicy foods, fried foods, fast foods, red sauces, orange juice * avoid excessive amounts of alcohol and caffeinated beverages (coffee, tea, soda) 3. Medications to avoid - * STOP the use of aspirin, motrin, ibuprofen, alleve, naprosyn; these will put you at risk of GI bleeding and irritation * tylenol IS ok for pain/discomfort 4. STOP your lisinopril for now, but continue your amlodipine for your blood pressure. 5. You will need a repeat EGD (Endoscopy) in 6-8 weeks by Domonique CHRISTY. 6. See your family doctor - Leeanna Polanco - within 3-4 days. You will need a repeat CBC (blood count) during that visit. 7. Take [id number] iron tablet twice daily for about 1 month. Note that iron causes constipation and can make your stool look dark. 8. Return to [facility] if you have recurrent GI bleeding ( blood in the vomit, blood in the stool), abdominal pain, difficulty keeping food down, etc. Current Hospital Diet Patient's current hospital diet: Regular Diet Discharge Diet Recommended Diet: Regular Diet Diet Texture: Mechanical Soft (ground) Procedures Procedures Performed: EGD with esophagitis Pending Studies Studies pending at discharge: no Medical Emergencies . Who to Call and When: Medical Emergencies: If at any time you feel your situation is an emergency, please call 911 immediately. . Non-Emergent Contact Non-Emergency issues call your: Primary Care Provider Call Non-Emergent contact if: temperature is above 100.5, your pain is concerning you, you have any medication questions . . "Provider Documentation" section prepared by Prabhu Vogel. VTE Core Measure Inpt VTE Proph given/why not?: SCD's
[2016-11-06] MEDS ORDERED: PANTOprazole SOD 40 MG TAB PO SCH (21:00)
--- NOTE | 2016-11-07 19:28 | Discharge Summary ---
Discharge Summary Admission Date: Nov 04, 2016 at 16:33 Discharge Date: Nov 06, 2016 Discharge Disposition: Home Principal Diagnosis: upper GI bleeding 2nd to esophagitis Problems/Secondary Diagnoses: 1. mild acute blood loss anemia 2. hypertension 3. history of hemorrhagic stroke 4. GERD 5. hiatal hernia 6. hyperlipidemia 7. mild vascular dementia Immunizations: Have You Had Influenza Vaccine: No History of Tetanus Vaccine?: No History of Pneumococcal: No History of Hepatitis B Vaccine: No Procedures: EGD - Alhaji Leigh MD 1. LA Grade D esophagitis, with clot but without oozing. 2. Esophageal Ring. Possible small diverticulum. 3. Large hiatal hernia. Consultations: gastroenterology - Alhaji Leigh MD Medication Reconciliation New Medications: Ferrous Sulfate (Ferrous Sulfate) 325 Mg Tab 325 MG PO BID for 30 Days, 0 Refills Pantoprazole (Pantoprazole Sodium) 40 Mg Tab 40 MG PO BID, #60 TAB 2 Refills Continued Medications: Amlodipine Besylate (Amlodipine Besylate) 10 Mg Tab 10 MG PO QPM Multivitamin (Multivitamin) Tab 1 TAB PO QPM, TAB Simvastatin (Zocor) 10 Mg Tab 10 MG PO QPM, TAB Discontinued Medications: Aspirin (Aspirin Ec) 81 Mg Tab 81 MG PO QPM Lisinopril (Lisinopril) 10 Mg Tab 10 MG PO QPM Ranitidine HCl (Ranitidine HCl) 150 Mg Tab 150 MG PO QPM Referrals At Discharge Follow up Referrals: [employer] Referral - Within 6 Weeks with Alhaji Leigh M.D. Discharge Exam Physical Exam: General Appearance: WD/WN, no apparent distress ENT: pharynx normal Neck: no JVD Respiratory/Chest: lungs clear, no respiratory distress, no accessory muscle use Cardiovascular: regular rate, rhythm, no gallop, no murmur, normal peripheral pulses Abdomen / GI: normal bowel sounds, non tender, soft, no organomegaly Extremities: no pedal edema Neurologic/Psychiatric: alert, oriented x 3 Hospital Course HISTORY OF PRESENT ILLNESS: The patient is a 66-year-old male who presented to the emergency department with complaint of frequent episodes of coffee-ground vomiting that started about 24 hours prior to admission. He had associated epigastric abdominal discomfort, generalized weakness and loose stools on the day of admission. He does have a history of a hemorrhagic stroke and takes aspirin 81 mg daily for secondary stroke prevention. He has frequent heartburn/GERD symptoms. He's had no blood in the stool. He does have some dementia secondary to the previous intracranial bleed, and his provided a significant part of his history of present illness and review of systems. HOSPITAL COURSE: Following admission the patient was made NPO, started on protonix infusion, and given IVF. Serial hemoglobin checks revealed only a mild drop in hemoglobin during his stay. He was sent in consult by Dr. Alhaji Leigh from [facility] who performed EGD. This showed significant esophagitis with clot but no active oozing during the procedure. He also had a large hiatal hernia and an esophageal ring. Following his EGD he was started on clear liquids and this was advanced without difficulty prior to discharge. Vitals and lab studies remained stable while here. Discharge hemoglobin was 13.6. He was transitioned to oral protonix twice daily at discharge. He was advised to take oral iron supplementation for at least 1 month. "GERD" diet was recommended (avoidance of excessive caffeine, etoh, acidic foods , etc). He will follow-up with Dr. Leigh in about 6 weeks to repeat his EGD. Mr. Medina was instructed to STOP all aspirin, aspirin/NSAID containing products, and NSAIDs at time of discharge. Lastly, due to his GI bleeding/acute blood loss anemia, his BP was well- controlled without use of lisinopril. Thus, it was discontinued at discharge; he will continue on amlodipine, however. Total Time Spent: Greater than 30 minutes This includes examination of the patient, discharge planning, medication reconciliation, and communication with other providers. Discharge Instructions Please refer to the electronic Patient Visit Report (Discharge Instructions) for additional information. Follow-Up 1. see JILLIAN Lee - within 5 days 2. see Alhaji Leigh MD - [facility] - within 6-8 weeks for repeat EGD Additional Copies To Alhaji Leigh M.D.; Tara Polanco C.R.N.P.
[2016-12-20] MEDS ORDERED: PANT40TA PO (09:50)
[2017-03-10] MEDS ORDERED: FERR1TAB13 PO (08:52)
[2017-03-10] MEDS ORDERED: FERR325T18 PO (08:52)
== END 2016-11-06 15:16 | disposition home or self-care (01) | DRG 378 ==
LOC: ENRESERVTM → ENRESERVDT → C.EDB 14:16 → C.2T 16:33
PROVIDERS: ADMIT Hospitalist; ATTEND Internal Medicine
PROC: 0DJ08ZZ Inspection of Upper Intestinal Tract, Via Natural or Artificial Opening Endoscopic (ICD-10-PCS; principal; 2016-11-05 13:55)
DX: K92.2 Gastrointestinal hemorrhage, unspecified (principal); D62 Acute posthemorrhagic anemia; K22.10 Ulcer of esophagus without bleeding; K21.0 Gastro-esophageal reflux disease with esophagitis; F01.50 Vascular dementia, unspecified severity, without behavioral disturbance, psychotic disturbance, mood disturbance, and anxiety; I10 Essential (primary) hypertension; E78.00 Pure hypercholesterolemia, unspecified; K44.9 Diaphragmatic hernia without obstruction or gangrene; E11.9 Type 2 diabetes mellitus without complications; Z88.0 Allergy status to penicillin; Z91.018 Allergy to other foods; Z86.73 Personal history of transient ischemic attack (TIA), and cerebral infarction without residual deficits; Z79.82 Long term (current) use of aspirin; Z83.3 Family history of diabetes mellitus; Z82.49 Family history of ischemic heart disease and other diseases of the circulatory system; Z84.1 Family history of disorders of kidney and ureter

== ENCOUNTER → 2016-12-26 | Day surgery (SDC) | payer BC ==
[2016-12-20 09:51] VITALS: Ht 170.2 cm; Wt 90.9 kg
[~2016-12-26] VITALS: Ht 170.2 cm; Wt 90.9 kg
[~2016-12-26] MED LIST changes: -AMLO-114 PO; +FERR1TAB13 PO; +FERR325T18 PO; +LIDOCAINE HCL 2% 2 ML VIAL (20MG/ML) ONE; -LISI40TA PO; +MULT-506 PO; +NRV/10 PO; +PANT40TA PO; -POTA-335 PO; +PROPOFOL IV EMULSION 10 MG/ML 20 ML VIAL IV ONE; +SIMV10TA2 PO; -ZFRODT4 SL; -ZNTT/150 PO
[2016-12-26 07:56] VITALS: TEMP 37
--- NOTE | 2016-12-26 09:00 | Endo History and Physical ---
History & Physical Date of Service: Dec 26, 2016. Chief Complaint: Erosive esophagitis Referring Physician: Tara WALSH History of Present Illness F/u erosive esophagitis Past Surgical History Hx Cardiac Surgery: No Hx Internal Defibrillator: No Hx Pacemaker: No Hx Abdominal Surgery: No Hx of Implantable Prosthesis: No Hx Post-Op Nausea and Vomiting: No Hx Cancer Surgery: No Hx Thoracic Surgery: No Hx Orthopedic: Yes (LT LEG SURGERY WITH HARDWARE) Hx Urinary Tract Surgery: No Social History Smoking Status: Former Smoker Hx Substance Use: No Hx Alcohol Use: No Allergies Coded Allergies: Penicillins (Verified Allergy, Mild, HIVES, 12/20/16) [place] (Verified Allergy, Unknown, HIVES, 12/20/16) Current Medications Reported Home Medications Medications Dose Route/Sig Max Daily Dose Days Date Category Protonix (Pantoprazole Sodium) 40 Mg Tab 40 Mg PO BID 12/20/16 Reported Zocor (Simvastatin) 10 Mg Tab 10 Mg PO HS 11/04/16 Reported Multivitamin (Multivitamins) Tab 1 Tab PO HS 11/04/16 Reported Amlodipine Besylate 10 Mg Tab 0.5-1 Tab PO HS 11/04/16 Reported Vital Signs Weight (Kilograms): 90.91 Height (Feet): 5 Height (Inches): 7 Date Time Temp Pulse Resp B/P Pulse Ox O2 Delivery O2 Flow Rate FiO2 12/26/16 07:56 37 65 18 119/75 95 Room Air Physical Exam General Appearance: no apparent distress Respiratory/Chest: Respiratory effort: no dyspnea Auscultation: breath sounds normal Cardiovascular: Heart Auscultation: RRR Abdomen: Bowel Sounds: normal Assessment and Plan Erosive esophagitis - EGD
--- NOTE | 2016-12-26 09:26 | GI REPORT ---
Procedure Date: 12/26/2016 9:07 AM Procedure: Upper GI endoscopy Indications: Follow-up of reflux esophagitis Medicines: See the Anesthesia note for documentation of the administered medications Complications: No immediate complications. Estimated Blood Loss: Estimated blood loss: none. Procedure: Pre-Anesthesia Assessment: - ASA Grade Assessment: III - A patient with severe systemic disease. After obtaining informed consent, the endoscope was passed under direct vision. Throughout the procedure, the patient's blood pressure, pulse, and oxygen saturations were monitored continuously. The scope was introduced through the mouth, and advanced to the second part of duodenum. The upper GI endoscopy was accomplished without difficulty. The patient tolerated the procedure well. Findings: There was a single erosion extending > 5 mm above the GE junction. There was a mild stricture. There was a hiatal hernia. Appearance was improved from before. The stomach and duodenum were normal. Impression: - LA Grade B esophagitis. Improved. - No specimens collected. Recommendation: Discharge pt torrie. Continue BID PPI. Would recommend repeat EGD in 8-10 weeks. - Patient has a contact number available for emergencies. The signs and symptoms of potential delayed complications were discussed with the patient. Return to normal activities tomorrow. Written discharge instructions were provided to the patient. Alhaji Leigh M.D. Alhaji Leigh MD 12/26/2016 9:25:19 AM This report has been signed electronically. Note Initiated On: 12/26/2016 9:07 AM I attest to the content of the Intraoperative Record and orders documented therein, exceptions below
--- NOTE | 2016-12-26 09:29 | Discharge Instructions ---
Endoscopy Patient Instructions Date / Procedure(s) Performed Dec 26, 2016. EGD Allergy Information Coded Allergies: Penicillins (Verified Allergy, Mild, HIVES, 12/20/16) [place] (Verified Allergy, Unknown, HIVES, 12/20/16) Discharge Date / Findings Dec 26, 2016. Erosive esophagitis Provider Instructions Activity Restrictions - No exercising or heavy lifting for 24 hours. - Do not drink alcohol the day of the procedure. - Do not drive a car or operate machinery until the day after the procedure. - Do not make any important decisions or sign important papers in 24 hours after the procedure. Following Day: - Return to full activity which may include returning to work/school. Diet Start your diet with liquids and light foods (jello, soup, juice, toast). Then eat your usual diet if not nauseated. Treatment For Common After Affects For mild abdominal pain, bloating, or excessive gas: - Rest - Eat lightly - Lie on right side Follow-Up Information Follow-up with Tara WALSH as scheduled Anesthesia Information What You Should Know You have had a procedure that required some medicine to reduce anxiety and discomfort. This treatment is called moderate sedation. After receiving the treatment, you may be sleepy, but you will be able to breathe on your own. The effects of the treatment may last for several hours. Follow these instructions along with Activity/Diet recommendations noted above: * Do NOT do anything where dizziness or clumsiness would be dangerous. * Rest quietly at home today, then you can be up and about tomorrow. * Have a responsible person stay with you the rest of today. * You may have had an I.V. today. If so, you may take the dressing off later today. Recommendations Call your doctor if: * Trouble breathing * Continuous vomiting for more than 24 hours * Temperature above 101 degrees * Severe abdominal pain or bloating * Pain not relieved by pain medicine ordered * There is increased drainage or redness from any incision * A large amount of rectal bleeding greater than 2-3 tablespoons. (If you had a polyp/s removed or have hemorrhoids, a small amount of blood - from the rectum is to be expected.) * You have any unanswered questions or concerns. IN THE EVENT OF A SERIOUS EMERGENCY, GO TO THE NEAREST EMERGENCY ROOM Your discharge instructions were prepared by provider Irphan E Gaslightwal. Patient Instructions Signature Page Arpit Medina Patient (or Guardian) Signature/Date: I have read and understand the instructions given to me by my caregivers. Caregiver/RN/Doctor Signature/Date: The above-named patient and/or guardian has received patient instructions on this date. + Original Patient Signature Page (only) stays with chart. Please make copy for patient.
--- NOTE | 2016-12-26 09:39 | Anesthesiology Progress Note ---
Anesthesia Post Op Note Date & Time Dec 26, 2016 at 09:39 Vital Signs Pain Intensity: 0 Vital Signs Past 12 Hours Date Time Temp Pulse Resp B/P Pulse Ox O2 Delivery O2 Flow Rate FiO2 12/26/16 09:15 69 20 106/69 96 Room Air 12/26/16 07:56 37 65 18 119/75 95 Room Air Notes Mental Status: alert / awake / arousable, participated in evaluation Pt Amnestic to Procedure: Yes Nausea / Vomiting: adequately controlled Pain: adequately controlled Airway Patency, RR, SpO2: stable & adequate BP & HR: stable & adequate Hydration State: stable & adequate Anesthetic Complications: no major complications apparent
[2016-12-26 09:44] VITALS: BP 112/73; PULSE 58; O2SAT 95
== END | disposition home or self-care (01) ==
LOC: C.GI 07:26
PROVIDERS: ATTEND Internal Medicine Gastroenterology
DX: K22.10 Ulcer of esophagus without bleeding (principal); Z87.891 Personal history of nicotine dependence; I10 Essential (primary) hypertension; Z86.73 Personal history of transient ischemic attack (TIA), and cerebral infarction without residual deficits; K44.9 Diaphragmatic hernia without obstruction or gangrene; K22.2 Esophageal obstruction

== ENCOUNTER → 2017-03-10 | Day surgery (SDC) | payer BC ==
[2017-03-06 10:21] VITALS: Ht 170.2 cm; Wt 90.9 kg
[~2017-03-10] VITALS: Ht 170.2 cm; Wt 90.9 kg
[~2017-03-10] MED LIST changes: -LIDOCAINE HCL 2% 2 ML VIAL (20MG/ML) ONE; -PROPOFOL IV EMULSION 10 MG/ML 20 ML VIAL IV ONE
--- NOTE | 2017-03-10 09:10 | Endo History and Physical ---
History & Physical Date of Service: March 10, 2017. Chief Complaint: history of reflux esophagitis Referring Physician: Tara WALSH History of Present Illness h/o reflux Past Surgical History Hx Cardiac Surgery: No Hx Internal Defibrillator: No Hx Pacemaker: No Hx Abdominal Surgery: No Hx Post-Op Nausea and Vomiting: No Hx Cancer Surgery: No Hx Thoracic Surgery: No Hx Orthopedic: Yes (LT LEG SURGERY WITH HARDWARE) Hx Urinary Tract Surgery: No Social History Smoking Status: Former Smoker Hx Substance Use: No Hx Alcohol Use: No Allergies Coded Allergies: Penicillins (Verified Allergy, Mild, HIVES, 03/06/17) [place] (Verified Allergy, Unknown, HIVES, 03/06/17) Current Medications Reported Home Medications Medications Dose Route/Sig Max Daily Dose Days Date Category Ferrous Gluconate 324 Mg Tab 65 Mg PO DIRECTED 03/10/17 Reported Protonix (Pantoprazole Sodium) 40 Mg Tab 40 Mg PO BID 12/20/16 Reported Zocor (Simvastatin) 10 Mg Tab 10 Mg PO HS 11/04/16 Reported Multivitamin (Multivitamins) Tab 1 Tab PO HS 11/04/16 Reported Amlodipine Besylate 10 Mg Tab 0.5-1 Tab PO HS 11/04/16 Reported Vital Signs Weight (Kilograms): 90.91 Height (Feet): 5 Height (Inches): 7 Date Time Temp Pulse Resp B/P Pulse Ox O2 Delivery O2 Flow Rate FiO2 03/10/17 08:59 36.7 61 16 127/66 95 Room Air Physical Exam General Appearance: no apparent distress Respiratory/Chest: Auscultation: breath sounds normal Cardiovascular: Heart Auscultation: RRR Abdomen: Inspection & Palpation: soft Assessment and Plan h/o reflux esophagitis
--- NOTE | 2017-03-10 10:15 | GI REPORT ---
Procedure Date: 03/10/2017 9:40 AM Procedure: Upper GI endoscopy Indications: Follow-up of reflux esophagitis Medicines: See the Anesthesia note for documentation of the administered medications Complications: No immediate complications. Estimated Blood Loss: Estimated blood loss: none. Procedure: Pre-Anesthesia Assessment: - ASA Grade Assessment: II - A patient with mild systemic disease. After obtaining informed consent, the endoscope was passed under direct vision. Throughout the procedure, the patient's blood pressure, pulse, and oxygen saturations were monitored continuously. The Scope was introduced through the mouth, and advanced to the second part of duodenum. The upper GI endoscopy was accomplished without difficulty. The patient tolerated the procedure well. Findings: There was a small circular circumferential erosion at the GE junction at 35 cm. The Z line was irregular. There was a ring at the GE junction. There was a moderate sized hiatal hernia. The stomach and duodenum were normal. A TTS dilator was passed through the scope. Dilation with a 15-16.5-18 mm balloon (to a maximum balloon size of 16.5 mm) dilator was performed at the gastroesophageal junction. Biopsies were taken with a cold forceps at the gastroesophageal junction for histology. Impression: - Esophagitis has healed. Ring at GE junction. - Dilation attempted at the gastroesophageal junction. Successful. - Biopsies were taken with a cold forceps for histology at the gastroesophageal junction. Recommendation: - Discharge patient to home. Continue BID PPI. Repeat EGD PRN for dysphagia. Alhaji Leigh M.D. Alhaji Leigh MD 03/10/2017 10:16:10 AM This report has been signed electronically. Note Initiated On: 03/10/2017 9:40 AM I attest to the content of the Intraoperative Record and orders documented therein, exceptions below
--- NOTE | 2017-03-10 10:18 | Discharge Instructions ---
Endoscopy Patient Instructions Date / Procedure(s) Performed March 10, 2017. EGD Allergy Information Coded Allergies: Penicillins (Verified Allergy, Mild, HIVES, 03/10/17) Rincon (Verified Allergy, Unknown, HIVES, 03/10/17) Discharge Date / Findings March 10, 2017. Healed esophagitis. Ring at GE junction, dilated. Irreg z line. Medication Instructions Stopped Medication(s): stopped iron on Monday Continue PPI twice daily. Provider Instructions Activity Restrictions - No exercising or heavy lifting for 24 hours. - Do not drink alcohol the day of the procedure. - Do not drive a car or operate machinery until the day after the procedure. - Do not make any important decisions or sign important papers in 24 hours after the procedure. Following Day: - Return to full activity which may include returning to work/school. Diet Start your diet with liquids and light foods (jello, soup, juice, toast). Then eat your usual diet if not nauseated. Treatment For Common After Affects For mild abdominal pain, bloating, or excessive gas: - Rest - Eat lightly - Lie on right side Follow-Up Information Follow-up with Tara WALSH as scheduled Anesthesia Information What You Should Know You have had a procedure that required some medicine to reduce anxiety and discomfort. This treatment is called moderate sedation. After receiving the treatment, you may be sleepy, but you will be able to breathe on your own. The effects of the treatment may last for several hours. Follow these instructions along with Activity/Diet recommendations noted above: * Do NOT do anything where dizziness or clumsiness would be dangerous. * Rest quietly at home today, then you can be up and about tomorrow. * Have a responsible person stay with you the rest of today. * You may have had an I.V. today. If so, you may take the dressing off later today. Recommendations Call your doctor if: * Trouble breathing * Continuous vomiting for more than 24 hours * Temperature above 101 degrees * Severe abdominal pain or bloating * Pain not relieved by pain medicine ordered * There is increased drainage or redness from any incision * A large amount of rectal bleeding greater than 2-3 tablespoons. (If you had a polyp/s removed or have hemorrhoids, a small amount of blood - from the rectum is to be expected.) * You have any unanswered questions or concerns. IN THE EVENT OF A SERIOUS EMERGENCY, GO TO THE NEAREST EMERGENCY ROOM Your discharge instructions were prepared by provider Alhaji Hartman. Patient Instructions Signature Page Arpit Medina Patient (or Guardian) Signature/Date: I have read and understand the instructions given to me by my caregivers. Caregiver/RN/Doctor Signature/Date: The above-named patient and/or guardian has received patient instructions on this date. + Original Patient Signature Page (only) stays with chart. Please make copy for patient.
--- NOTE | 2017-03-10 10:22 | Anesthesiology Progress Note ---
Anesthesia Post Op Note Date & Time March 10, 2017 at 10:22 Vital Signs Pain Intensity: 0 Vital Signs Past 12 Hours Date Time Temp Pulse Resp B/P Pulse Ox O2 Delivery O2 Flow Rate FiO2 03/10/17 10:18 60 20 118/68 94 Room Air 03/10/17 10:03 66 20 105/61 95 Room Air 03/10/17 08:59 36.7 61 16 127/66 95 Room Air Notes Mental Status: alert / awake / arousable, participated in evaluation Pt Amnestic to Procedure: Yes Nausea / Vomiting: adequately controlled Pain: adequately controlled Airway Patency, RR, SpO2: stable & adequate BP & HR: stable & adequate Hydration State: stable & adequate Anesthetic Complications: no major complications apparent
[2017-03-10 10:33] VITALS: BP 130/92; PULSE 56; O2SAT 95
== END | disposition home or self-care (01) ==
LOC: C.GI 08:28
PROVIDERS: ATTEND Internal Medicine Gastroenterology
DX: K21.0 Gastro-esophageal reflux disease with esophagitis (principal); Z87.891 Personal history of nicotine dependence

== ENCOUNTER 2019-12-20 08:56 | Inpatient (IN) ==
[2019-12-20] MEDS ORDERED: ALBUT/IPRATROP 3MG/0.5MG NEB 3 ML VIAL NEB STA (09:30)
[2019-12-20] MEDS ORDERED: SODIUM CHLORIDE 0.9% 1000ML 1,000 ML IV SCH (09:30)
[2019-12-20 09:33] LABS: Basophils # (auto) 0.02 K/uL (0-0.2); Basophils % (auto) 0.3 %; Eosinophils # (auto) 0.01 K/uL (0-0.5); Eosinophils % (auto) 0.1 %; Hematocrit (blood only) 40.7 % (42-52); Hemoglobin 13.4 g/dL (14.0-18.0); Immature Granulocytes # (auto) 0.01 K/uL (0.00-0.02); Immature Granulocytes % (auto) 0.1 %; Lymphocytes # (auto) 0.99 K/uL (1.2-3.4); Lymphocytes % (auto) 14.3 %; Mean Corpuscular Hemoglobin 29.3 pg (25-34); Mean Corpuscular Hgb Conc 32.9 g/dL (32-36); Mean Corpuscular Volume 88.9 fL (80-100); Mean Platelet Volume 8.6 fL (7.4-10.4); Monocytes # (auto) 1.56 K/uL (0.11-0.59); Monocytes % (auto) 22.6 %; Neutrophils # (auto) 4.32 K/uL (1.4-6.5); Neutrophils % (auto) 62.6 %; Platelet Count 291 K/uL (130-400); RDW Coefficient of Variation 14.1 % (11.5-14.5); RDW Standard Deviation 45.9 fL (36.4-46.3); Red Blood Count 4.58 M/uL (4.7-6.1); White Blood Count 6.91 K/uL (4.8-10.8)
[2019-12-20 09:40] LABS: Alanine Aminotransferase 16 U/L (12-78); Albumin Level 3.4 gm/dl (3.4-5.0); Aspartate Aminotransferase 14 U/L (15-37); BUN Creatinine Ratio 7.1 (10-20); Blood Urea Nitrogen 10 mg/dl (7-18); C Reactive Protein 2.51 mg/dl (0-0.29); Calcium 8.6 mg/dl (8.5-10.1); Carbon Dioxide 20 mmol/L (21-32); Chloride 110 mmol/L (98-107); Creatinine Clr Calc Pharmacy 54.4 ml/min; Est GFR (African American) 59.5; Est GFR (Non-African American) 51.3; Glucose 103 mg/dl (70-99); Lipase 153 U/L (73-393); Potassium 3.7 mmol/L (3.5-5.1); Sodium 137 mmol/L (136-145)
[2019-12-20 09:48] LABS: Albumin Globulin Ratio 0.9 (0.9-2); Alkaline Phosphatase 60 U/L (45-117); Bilirubin,Total 0.7 mg/dl (0.2-1); Creatine Kinase 229 U/L (39-308); Globulin 3.8 gm/dl (2.5-4.0); Total Protein 7.2 gm/dl (6.4-8.2); Troponin I < 0.015 ng/ml (0-0.045)
--- NOTE | 2019-12-20 10:24 | Emergency Department Note ---
Entered by Matthew Quezada acting as a scribe for Edwin Du DO History of Present Illness General Chief complaint: Flu Like Symptoms Stated complaint: weakness Time Seen by Provider: 12/20/19 09:23 History of Present Illness The patient is a 69-year-old male who presented to the emergency department by ambulance for an evaluation of generalized weakness. The patient was seen in our facility yesterday and diagnosed with the flu. He was started on Tamiflu. He was treated with IV fluids yesterday and according to his significant other was feeling much better and was able to ambulate and left the hospital under his own power. The patient awoke this morning he was feeling much worse. He was having significant difficulty ambulating. He try to go to the bathroom and his noted that he was having significant difficulty walking down the hallway. The patient complains of generalized weakness and malaise. He states he has not had a fever today. He denies having any chest pain. The patient does complain of a nonproductive cough. He does have muscle aches but denies having any worsening edema in his legs. He denies having any back pain but does complain of headache and muscle aches. The patient did not take any medication prior to arrival other than his prescribed medications. He did not see his primary care physician prior to arrival. Home Medications Home Medications Medication Instructions Recorded Confirmed Type amlodipine 5 mg PO QAM 12/19/19 12/20/19 History benzonatate [Tessalon Perles] 100 mg PO TID PRN #15 cap 12/19/19 12/20/19 Rx multivitamin 1 tab PO QAM 12/19/19 12/20/19 History oseltamivir [Tamiflu] 75 mg PO BID 5 Days #9 cap 12/19/19 12/20/19 Rx pantoprazole 40 mg PO BID 12/19/19 12/20/19 History simvastatin 10 mg PO QAM 12/19/19 12/20/19 History acetaminophen 500 mg PO Q6H PRN 12/20/19 12/20/19 History Allergies Allergy/AdvReac Type Severity Reaction Status Date / Time Penicillins Allergy Mild HIVES Verified 12/20/19 10:24 strawberry Allergy Unknown HIVES Verified 12/20/19 10:24 Past Med/Surg History Medical History (Updated 12/20/19 @ 13:03 by Frantz Quesada MD) GERD (gastroesophageal reflux disease) No significant past medical history Surgical History No pertinent past surgical history Family History Other No pertinent family history in first degree relatives Social History Preferred Language: Barb[place] [employer] C[employer] Required: No Beliefs That Will Affect Care: None Current Living Situation: Spouse Feels Safe at Home: Yes Smoking Status: Never smoker Hx Alcohol Use: No Hx Substance Use: No Review of Systems See HPI for pertinent positives & negatives. and A total of 10 systems reviewed and were otherwise negative Physical Exam Vital Signs Vital Signs - 24 hr 12/20/19 09:01 12/20/19 09:08 12/20/19 09:20 Temperature 37.3 C Temperature Source Oral Pulse Rate 81 76 Pulse Rate [Apical] Pulse Rate from SpO2 Sensor 82 76 Respiratory Rate 13 17 Respiratory Effort / Characteristics Non-Labored Spontaneous Respiratory Depth Normal Blood Pressure 98/62 L 98/62 L Blood Pressure Mean 71 74 Blood Pressure Position Sitting Pulse Oximetry 91 93 88 L Oxygen Delivery Method Room Air Oxygen Flow Rate Sepsis Recent Fever Within 48 Hours Yes Sepsis Action Taken by Nursing No Action Required 12/20/19 09:30 12/20/19 09:31 12/20/19 09:32 Temperature Temperature Source Pulse Rate 74 72 Pulse Rate [Apical] Pulse Rate from SpO2 Sensor 75 71 Respiratory Rate 16 20 Respiratory Effort / Characteristics Respiratory Depth Blood Pressure 114/65 115/64 Blood Pressure Mean 71 72 Blood Pressure Position Pulse Oximetry 91 89 L 93 Oxygen Delivery Method Room Air Oxygen Flow Rate Sepsis Recent Fever Within 48 Hours Sepsis Action Taken by Nursing 12/20/19 09:35 12/20/19 09:40 12/20/19 09:46 Temperature Temperature Source Pulse Rate 70 Pulse Rate [Apical] 65 Pulse Rate from SpO2 Sensor 70 Respiratory Rate 18 17 Respiratory Effort / Characteristics Non-Labored Spontaneous Respiratory Depth Blood Pressure Blood Pressure Mean Blood Pressure Position Pulse Oximetry 92 94 94 Oxygen Delivery Method Nasal Cannula Nasal Cannula Oxygen Flow Rate 2 2 Sepsis Recent Fever Within 48 Hours Sepsis Action Taken by Nursing 12/20/19 09:50 12/20/19 10:00 12/20/19 10:01 Temperature Temperature Source Pulse Rate 69 69 70 Pulse Rate [Apical] Pulse Rate from SpO2 Sensor 68 69 71 Respiratory Rate 23 17 17 Respiratory Effort / Characteristics Respiratory Depth Blood Pressure 118/62 Blood Pressure Mean 84 Blood Pressure Position Pulse Oximetry 98 94 96 Oxygen Delivery Method Oxygen Flow Rate Sepsis Recent Fever Within 48 Hours Sepsis Action Taken by Nursing 12/20/19 10:10 12/20/19 10:20 12/20/19 10:30 Temperature Temperature Source Pulse Rate 87 76 76 Pulse Rate [Apical] Pulse Rate from SpO2 Sensor 87 76 77 Respiratory Rate 21 19 18 Respiratory Effort / Characteristics Respiratory Depth Blood Pressure 118/67 Blood Pressure Mean 79 Blood Pressure Position Pulse Oximetry 97 96 97 Oxygen Delivery Method Oxygen Flow Rate Sepsis Recent Fever Within 48 Hours Sepsis Action Taken by Nursing 12/20/19 10:31 12/20/19 10:40 12/20/19 11:30 Temperature Temperature Source Pulse Rate 78 81 71 Pulse Rate [Apical] Pulse Rate from SpO2 Sensor 76 78 72 Respiratory Rate 18 16 19 Respiratory Effort / Characteristics Respiratory Depth Blood Pressure 146/78 H Blood Pressure Mean 106 Blood Pressure Position Pulse Oximetry 95 94 96 Oxygen Delivery Method Nasal Cannula Nasal Cannula Oxygen Flow Rate 2 2 Sepsis Recent Fever Within 48 Hours Sepsis Action Taken by Nursing GENERAL: The patient is awake but somewhat listless appearing. He does not appear to be in pain. He follows commands well. EYES: The conjunctivae are clear. The pupils are round and reactive. EARS, NOSE, MOUTH AND THROAT: The nose is without any evidence of any deformity. Mucous membranes are dry. NECK: The neck is nontender and supple. RESPIRATORY: Shallow respirations were noted. There were diminished breath sounds in the right lung base with rales in the left lung base. There was no tachypnea or conversational dyspnea. CARDIOVASCULAR: Regular rate and rhythm noted there no murmurs rubs or gallops normal S1 normal S2. GASTROINTESTINAL: The abdomen is soft. Abdomen is nontender. MUSCULOSKELETAL/EXTREMITIES: There is no evidence of gross deformity full range of motion is noted in the hips and shoulders. SKIN: There is no obvious evidence of any rash. Trace pedal edema was noted bilaterally. NEUROLOGIC: Patient is oriented to person place and situation. Patellar tendon reflexes are 2+ bilaterally. Course Course 09: The patient was evaluated in room B04B. A complete history and physical exam was performed. 1102: I reviewed the patient's case with Dr. Quesada, [facility] Hospitalist. She will evaluate the patient for further management. 1105: Upon reevaluation, the patient is resting comfortably. I discussed laboratory and radiographic results with him. He verbalized agreement of the treatment plan. The patient will be evaluated for further management and care. Administered Medications Albuterol (Duoneb) 3 ml NEB QIDR FANNY Stop: 01/19/20 14:59 Last Admin: 12/20/19 14:56 Dose: 3 ml Documented by: [id number] Fluticasone/Vilanterol (Breo Ellipta 200/25 Mcg Inh) 1 puffs INH DAILY FANNY Stop: 01/19/20 14:59 Last Admin: 12/20/19 16:28 Dose: 1 puffs Documented by: [id number] Doxycycline Hyclate 100 mg/ (Dextrose) 110 mls @ 50 mls/hr IV BID FANNY Stop: 12/27/19 14:14 Last Infusion: 12/20/19 16:29 Dose: 0 mls/hr Documented by: [id number] Admin: 12/20/19 14:27 Dose: 50 mls/hr Documented by: [id number] Potassium Chloride/Sodium Chloride (Normal Saline W/20 Meq Kcl) 20 meq in 1,000 mls @ 80 mls/hr IV .[id number] FANNY Stop: 12/21/19 02:44 Last Admin: 12/20/19 14:27 Dose: 80 mls/hr Documented by: [id number] Prednisone (Prednisone) 40 mg PO DAILY FANNY Stop: 12/24/19 09:01 Last Admin: 12/20/19 16:27 Dose: 40 mg Documented by: [id number] Discontinued Medications Albuterol (Duoneb) 3 ml NEB NOW STA Stop: 12/20/19 09:31 Last Admin: 12/20/19 09:44 Dose: 3 ml Documented by: [id number] Sodium Chloride (Nss 1000ml) 1,000 mls @ 999 mls/hr IV .[id number] FANNY Stop: 12/20/19 10:30 Last Infusion: 12/20/19 11:00 Dose: 0 mls/hr Documented by: [id number] Admin: 12/20/19 09:57 Dose: 999 mls/hr Documented by: [id number] Ceftriaxone Sodium (Rocephin) 1,000 mg in 50 mls @ 100 mls/hr IV NOW STA Stop: 12/20/19 11:07 Last Infusion: 12/20/19 11:55 Dose: 0 mls/hr Documented by: [id number] Infusion: 12/20/19 11:55 Dose: 0 mls/hr Documented by: [id number] Admin: 12/20/19 11:18 Dose: 100 mls/hr Documented by: [id number] Medical Decision Making Differential Diagnosis Differential diagnoses includes but is not limited to pneumonia, bronchitis, COPD/Asthma exacerbation, pneumothorax, pulmonary embolism, congestive heart failure, acute coronary syndrome Medical Records Attestation: I reviewed the patient's medical records. Home Medications Current Medication List: was personally reviewed by me Laboratory Data Attestation: I reviewed the patient's lab results. Result diagrams: 12/20/19 08:50 12/20/19 08:50 Lab Results 12/20/19 12/20/19 12/20/19 Range/Units 08:50 08:50 08:50 WBC 6.91 (4.8-10.8) K/uL RBC 4.58 L (4.7-6.1) M/uL Hgb 13.4 L (14.0-18.0) g/dL Hct 40.7 L (42-52) % MCV 88.9 (80-100) fL MCH 29.3 (25-34) pg MCHC 32.9 (32-36) g/dL RDW Std Deviation 45.9 (36.4-46.3) fL RDW Coeff of Alvaro 14.1 (11.5-14.5) % Plt Count 291 (130-400) K/uL MPV 8.6 (7.4-10.4) fL Immature Gran % (Auto) 0.1 % Neut % (Auto) 62.6 % Lymph % (Auto) 14.3 % [place] % (Auto) 22.6 % Eos % (Auto) 0.1 % Baso % (Auto) 0.3 % Immature Gran # (Auto) 0.01 (0.00-0.02) K/uL Neut # (Auto) 4.32 (1.4-6.5) K/uL Lymph # (Auto) 0.99 L (1.2-3.4) K/uL [place] # (Auto) 1.56 H (0.11-0.59) K/uL Eos # (Auto) 0.01 (0-0.5) K/uL Baso # (Auto) 0.02 (0-0.2) K/uL ESR 33 H (0-14) mm/hr Sodium 137 (136-145) mmol/L Potassium 3.7 (3.5-5.1) mmol/L Chloride 110 H (98-107) mmol/L Carbon Dioxide 20 L (21-32) mmol/L Anion Gap 8.0 (3-11) BUN 10 (7-18) mg/dl Creatinine 1.39 (0.6-1.4) mg/dl Est Cr Clr Drug Dosing 54.4 ml/min Est GFR ( Amer) 59.5 Est GFR (Non-Af Amer) 51.3 BUN/Creatinine Ratio 7.1 L (10-20) Glucose 103 H (70-99) mg/dl Lactate (0.4-2.0) mmol/L Calcium 8.6 (8.5-10.1) mg/dl Total Bilirubin 0.7 (0.2-1) mg/dl AST 14 L (15-37) U/L ALT 16 (12-78) U/L Alkaline Phosphatase 60 (45-117) U/L Total Creatine Kinase 229 (39-308) U/L Troponin I < 0.015 (0-0.045) ng/ml C-Reactive Protein 2.51 H (0-0.29) mg/dl NT-Pro-B Natriuret Pep (0-900) pg/ml Total Protein 7.2 (6.4-8.2) gm/dl Albumin 3.4 (3.4-5.0) gm/dl Globulin 3.8 (2.5-4.0) gm/dl Albumin/Globulin Ratio 0.9 (0.9-2) Lipase 153 (73-393) U/L Procalcitonin (0-0.5) ng/ml Urine Color Urine Appearance (Clear) Urine pH (4.5-7.5) Ur Specific Kiana (1.000-1.030) Urine Protein (Negative) Urine Glucose (UA) (Negative) Urine Ketones (Negative) Urine Blood (Negative) Urine Nitrite (Negative) Urine Bilirubin (Negative) Urine Urobilinogen (Negative) Ur Leukocyte Esterase (Negative) 03/06/20 03/06/20 03/06/20 Range/Units 08:50 08:50 10:55 WBC (4.8-10.8) K/uL RBC (4.7-6.1) M/uL Hgb (14.0-18.0) g/dL Hct (42-52) % MCV (80-100) fL MCH (25-34) pg MCHC (32-36) g/dL RDW Std Deviation (36.4-46.3) fL RDW Coeff of Alvaro (11.5-14.5) % Plt Count (130-400) K/uL MPV (7.4-10.4) fL Immature Gran % (Auto) % Neut % (Auto) % Lymph % (Auto) % [place] % (Auto) % Eos % (Auto) % Baso % (Auto) % Immature Gran # (Auto) (0.00-0.02) K/uL Neut # (Auto) (1.4-6.5) K/uL Lymph # (Auto) (1.2-3.4) K/uL [place] # (Auto) (0.11-0.59) K/uL Eos # (Auto) (0-0.5) K/uL Baso # (Auto) (0-0.2) K/uL ESR (0-14) mm/hr Sodium (136-145) mmol/L Potassium (3.5-5.1) mmol/L Chloride (98-107) mmol/L Carbon Dioxide (21-32) mmol/L Anion Gap (3-11) BUN (7-18) mg/dl Creatinine (0.6-1.4) mg/dl Est Cr Clr Drug Dosing ml/min Est GFR ( Amer) Est GFR (Non-Af Amer) BUN/Creatinine Ratio (10-20) Glucose (70-99) mg/dl Lactate (0.4-2.0) mmol/L Calcium (8.5-10.1) mg/dl Total Bilirubin (0.2-1) mg/dl AST (15-37) U/L ALT (12-78) U/L Alkaline Phosphatase (45-117) U/L Total Creatine Kinase (39-308) U/L Troponin I (0-0.045) ng/ml C-Reactive Protein (0-0.29) mg/dl NT-Pro-B Natriuret Pep 411 (0-900) pg/ml Total Protein (6.4-8.2) gm/dl Albumin (3.4-5.0) gm/dl Globulin (2.5-4.0) gm/dl Albumin/Globulin Ratio (0.9-2) Lipase (73-393) U/L Procalcitonin 0.05 (0-0.5) ng/ml Urine Color Yellow Urine Appearance Clear (Clear) Urine pH 6.0 (4.5-7.5) Ur Specific Kiana 1.015 (1.000-1.030) Urine Protein Negative (Negative) Urine Glucose (UA) Negative (Negative) Urine Ketones Trace H (Negative) Urine Blood Negative (Negative) Urine Nitrite Negative (Negative) Urine Bilirubin Negative (Negative) Urine Urobilinogen Negative (Negative) Ur Leukocyte Esterase Negative (Negative) 12/20/19 Range/Units 11:03 WBC (4.8-10.8) K/uL RBC (4.7-6.1) M/uL Hgb (14.0-18.0) g/dL Hct (42-52) % MCV (80-100) fL MCH (25-34) pg MCHC (32-36) g/dL RDW Std Deviation (36.4-46.3) fL RDW Coeff of Alvaro (11.5-14.5) % Plt Count (130-400) K/uL MPV (7.4-10.4) fL Immature Gran % (Auto) % Neut % (Auto) % Lymph % (Auto) % [place] % (Auto) % Eos % (Auto) % Baso % (Auto) % Immature Gran # (Auto) (0.00-0.02) K/uL Neut # (Auto) (1.4-6.5) K/uL Lymph # (Auto) (1.2-3.4) K/uL [place] # (Auto) (0.11-0.59) K/uL Eos # (Auto) (0-0.5) K/uL Baso # (Auto) (0-0.2) K/uL ESR (0-14) mm/hr Sodium (136-145) mmol/L Potassium (3.5-5.1) mmol/L Chloride (98-107) mmol/L Carbon Dioxide (21-32) mmol/L Anion Gap (3-11) BUN (7-18) mg/dl Creatinine (0.6-1.4) mg/dl Est Cr Clr Drug Dosing ml/min Est GFR ( Amer) Est GFR (Non-Af Amer) BUN/Creatinine Ratio (10-20) Glucose (70-99) mg/dl Lactate 1.6 (0.4-2.0) mmol/L Calcium (8.5-10.1) mg/dl Total Bilirubin (0.2-1) mg/dl AST (15-37) U/L ALT (12-78) U/L Alkaline Phosphatase (45-117) U/L Total Creatine Kinase (39-308) U/L Troponin I (0-0.045) ng/ml C-Reactive Protein (0-0.29) mg/dl NT-Pro-B Natriuret Pep (0-900) pg/ml Total Protein (6.4-8.2) gm/dl Albumin (3.4-5.0) gm/dl Globulin (2.5-4.0) gm/dl Albumin/Globulin Ratio (0.9-2) Lipase (73-393) U/L Procalcitonin (0-0.5) ng/ml Urine Color Urine Appearance (Clear) Urine pH (4.5-7.5) Ur Specific Kiana (1.000-1.030) Urine Protein (Negative) Urine Glucose (UA) (Negative) Urine Ketones (Negative) Urine Blood (Negative) Urine Nitrite (Negative) Urine Bilirubin (Negative) Urine Urobilinogen (Negative) Ur Leukocyte Esterase (Negative) Imaging Data Radiologist's Impression: Radiology results as stated below per my review and the radiologist's interpretation: XR chest 1V portable CLINICAL HISTORY: Cough. COMPARISON STUDY: Chest radiograph December 19, 2019. FINDINGS: There has been interval development of mild opacity within the lateral left lung base. Patient is rotated. Mild cardiomegaly is noted without evidence for pulmonary edema. No pneumothorax or pleural effusion is noted. IMPRESSION: Interval development of mild left basilar opacity which favors pneumonia. ACT 112: Negative or not required by law. Results electronically sent 12/20/2019 10:36 AM to: Edwin Du DO Electronically signed by: Drake Ryan M.D. 12/20/2019 10:36 AM ECG Data Attestation: I personally reviewed and interpreted this ECG as follows: Indication: + abdominal pain Rate (beats per minute): 77 Rhythm: + normal sinus ECG ST segments: no ST depression and no ST elevation ECG Findings: no PACs and no PVCs Comparison ECG Date: from (12/19/19) Change: no significant change Blood Pressure Blood Pressure Findings: Elevated blood pressure Blood Pressure Disposition: further management by hospitalist CHUY Narrative The patient is a 69-year-old male who presented to the emergency department for an evaluation of generalized weakness. The patient was diagnosed with the flu yesterday. He had a febrile illness as well as respiratory symptoms. The patient returns emergency department today because of ongoing symptoms which are worsened and his significant other is very concerned because he is having sig nificant difficulty ambulating. The patient was found have hypoxia. He has abnormal lung sounds. Chest x-ray does reveal signs of pneumonia. He was treated with IV fluids and IV antibiotics. He was reevaluated multiple times. I discussed the patient's laboratory and radiographic studies with him and his significant other. Because of his ongoing symptoms and his hypoxia I also discussed his case with the on-call [facility] [address] [facility] hospitalist group. They have agreed to evaluate the patient in the emergency department for further management disposition. The patient was agreeable to this plan. Impression & Plan Pneumonia, Hypoxia, Weakness Discharge Plan Visit Data *Final* Discharge Date/Time: 12/20/19 13:27 Chief Complaint: Flu Like Symptoms Stated Complaint: weakness ED Provider: Edwin Du Discharge Problem: Pneumonia, Hypoxia, Weakness Patient Disposition: Admitted As Inpatient Discharge Instructions Interventions: ED Discharge Assessment Last Done: 12/20/19 13:27 Discharge Problem: Pneumonia Qualifiers: Pneumonia type: due to unspecified organism Laterality: unspecified laterality Lung location: unspecified part of lung Qualified Code(s): J18.9 - Pneumonia, unspecified organism The scribe's documentation has been prepared under my direction and personally reviewed by me in its entirety. I confirm that the note above accurately ref lects all work, treatment, procedures, and medical decision making performed by me.
--- NOTE | 2019-12-20 10:37 | XRay Report ---
XR chest 1V portable CLINICAL HISTORY: Cough. COMPARISON STUDY: Chest radiograph December 19, 2019. FINDINGS: There has been interval development of mild opacity within the lateral left lung base. Sofía ent is rotated. Mild cardiomegaly is noted without evidence for pulmonary edema. No pneumothorax or p leural effusion is noted. IMPRESSION: Interval development of mild left basilar opacity which favors pneumonia. ACT 112: Negative or not required by law. Results electronically sent 12/20/2019 10:36 AM to: Edwin Du DO Electronically signed by: Drake Ryan M.D. 12/20/2019 10:36 AM
[2019-12-20] MEDS ORDERED: cefTRIAXone SODIUM 1,000 MG/50 ML BAG IV STA (10:38)
[2019-12-20 11:06] LABS: Appearance Urine Clear (Clear); Bilirubin Urine Negative (Negative); Blood Urine Negative (Negative); Color Urine Yellow; Glucose Urine UA Negative (Negative); Ketones Urine Trace (Negative); Leukocyte Esterase Urine Negative (Negative); Nitrite Urine Negative (Negative); Protein Urine Negative (Negative); Specific Gravity Urine 1.015 (1.000-1.030); Urobilinogen Urine Negative (Negative)
--- NOTE | 2019-12-20 12:29 | History & Physical Report ---
Date of Service December 20, 2019 Assessment & Plan (1) Acute respiratory failure with hypoxia: Admit to [facility] on telemetry for acute respiratory failure with hypoxia, Vital signs every 4 hours, Albuterol HFA every 4 hours as needed, Duo nebs every 4 hours scheduled and PRN per RT, Started ceftriaxone empirically in the ER continue ceftriaxone 2 g IV daily. Doxycycline started empirically 100 mg IV twice daily. Follow-up blood and sputum cultures, Lactate 1.6, BNP pending, Robitussin 10mL p.o. every 6 hours as needed for cough, Prednisone 40 mg p.o. daily, Monitor electrolytes and replenish as needed, DVT prophylaxis Heparin 5000 units every 12 hours, Full code (2) Pneumonia: As the above Present on Admission?: Yes (3) Weakness: Start physical and Occupational Therapy after the initial flare of weakness due to influenza and pneumonia. Present on Admission?: Yes (4) Acute dehydration: Replenish with IV fluids as necessary. Present on Admission?: Yes (5) Influenza B: Continue oseltamavir 75 mg twice daily. This is the day #2. Continue treatment for 5 days Present on Admission?: Yes (6) Hypertension: Hold amlodipine 5 mg p.o. every morning since patient blood pressure is at the lower side. Once when blood pressure improved restart amlodipine. Present on Admission?: Yes (7) Hyperlipidemia: Fasting lipid panel pending. Continue simvastatin 10 mg p.o. every morning Present on Admission?: Yes (8) GERD (gastroesophageal reflux disease): Stable, continue pantoprazole 40 mg p.o. twice daily. Present on Admission?: Yes History of Present Illness Chief Complaint: Shortness of breath and cough Primary Care Provider: JILLIAN Lee The patient is a 69 years old male with past medical history of GERD, hyperlipidemia, hypertension, was seen in the ER for flulike symptoms and found to be positive for influenza B. Patient was started on oseltamivir 75 mg twice daily yesterday but his said that he started to feel very sick yesterday night and she had to bring him back to the hospital today. Patient was also given fluid yesterday and this morning when he came in he was very short of breath and needed supplemental oxygen. Patient denies hemoptysis hematuria or dysuria abdominal pain. Labs are reviewed which shows influenza B positive from yesterday, WBC 6.91, hemoglobin 13.4, hematocrit 40.7, platelets 291, sodium 137, potassium 3.7, chloride 110, carbon dioxide 20, anion gap 8, BUN 10, creatinine 1.39, GFR 51.3, glucose 103, lactate 1.6, calcium 8.6, total bili 0.7, AST 14, ALT 16, alkaline phosphatase 60, troponin 0.015, C-reactive protein 2.51, albumin 3.4, globulin 3.8, lipase 153, urine yellow, urine appearance clear, trace ketones, urine blood negative, urine nitrate negative, urine bilirubin, negative urine, urobilinogen negative, leukocyte esterase negative. Chest x-rays are reviewed: Which shows that there has been interval development of the mild opacity within the lateral left lung base. Mild cardiomegaly is noted without evidence of pulmonary edema. No pneumothorax or pleural effusion is noted. The interval development of the mild left basilar opacity which favors pneumonia. Blood cultures and sputum cultures are pending. The decision was made to admit patient to [facility] on telemetry for influenza B and early pneumonia. Allergies Allergy/AdvReac Type Severity Reaction Status Date / Time Penicillins Allergy Mild HIVES Verified 12/20/19 10:24 strawberry Allergy Unknown HIVES Verified 12/20/19 10:24 Home Medications Home Medications Medication Instructions Recorded Confirmed Type amlodipine 5 mg PO QAM 12/19/19 12/20/19 History benzonatate [Tessalon Perles] 100 mg PO TID PRN #15 cap 12/19/19 12/20/19 Rx multivitamin 1 tab PO QAM 12/19/19 12/20/19 History oseltamivir [Tamiflu] 75 mg PO BID 5 Days #9 cap 12/19/19 12/20/19 Rx pantoprazole 40 mg PO BID 12/19/19 12/20/19 History simvastatin 10 mg PO QAM 12/19/19 12/20/19 History acetaminophen 500 mg PO Q6H PRN 12/20/19 12/20/19 History Past Med/Surg History Medical History No significant past medical history Surgical History No pertinent past surgical history Family History Other No pertinent family history in first degree relatives Social History Feels Safe at Home: Yes Smoking Status: Never smoker Review of Systems Review of Systems: All systems reviewed & are unremarkable except as noted in HPI & below Physical Exam Constitutional: WD/WN, vitals as above well developed and + ill appearing Eyes: PERRL, conjunctivae normal, anicteric sclerae ENMT: external ear and nose normal, oropharynx normal Neck: trachea midline, no thyromegaly Respiratory: + respiratory distress, + labored breathing and + uses accessory muscles Auscultation: + crackles and + wheezes Cardiovascular: RRR, no murmur, no edema Gastrointestinal (Abdomen): normal bowel sounds, soft, nontender, no hepatosplenomegaly Musculoskeletal: no cyanosis or clubbing, extremities motor strength 5/5 Skin: no rashes, warm and dry Neurologic: patellar DTR's 2+ bilat, sensation intact Psychiatric: A+Ox3, euthymic affect Lymphatic: no cervical or axillary lymphadenopathy Results & Data Vital Signs (Past 12 Hours) Vital Signs Temp Pulse Pulse Resp BP Pulse Ox 12/20/19 10:40 81 16 94 12/20/19 10:31 78 18 95 12/20/19 10:30 76 18 118/67 97 12/20/19 10:20 76 19 96 12/20/19 10:10 87 21 97 12/20/19 10:01 70 17 96 12/20/19 10:00 69 17 118/62 94 12/20/19 09:50 69 23 98 12/20/19 09:46 65 17 94 12/20/19 09:40 70 18 94 12/20/19 09:35 92 12/20/19 09:32 72 20 115/64 93 12/20/19 09:31 89 L 12/20/19 09:30 74 16 114/65 91 12/20/19 09:20 76 17 88 L 12/20/19 09:08 37.3 C 81 13 98/62 L 93 12/20/19 09:01 98/62 L 91 Code Status & VTE Plan Code Status Full code VTE Prophylaxis Plan VTE Prophylaxis will be ordered: Yes PG Care Time/CCT Total # of Minutes Spent Total Time Spent with Patient: Total time spent is greater than 50% in coordination of care (as documented) at patient's floor/unit and/or counseling patient: Coding Level of Care Code 50023 Initial Inpt Care Lvl 3 Diagnoses Acute respiratory failure with hypoxia J96.01 Pneumonia J18.9 Laterality: unspecified laterality Lung location: unspecified part of lung Pneumonia type: due to unspecified organism Weakness R53.1 Acute dehydration E86.0 Influenza B J10.1 Hypertension I10 Hyperlipidemia E78.5 GERD (gastroesophageal reflux disease) K21.9 (1) Pneumonia Laterality: unspecified laterality Lung location: unspecified part of lung Pneumonia type: due to unspecified organism Qualified Code(s): J18.9 - Pneumonia, unspecified organism
[2019-12-20] MEDS ORDERED: GUAIFENESIN/CODEINE 200MG/20MG 10ML UDC PO PRN (13:52)
[2019-12-20] MEDS ORDERED: ONDANSETRON INJ 2 MG/ML 2 ML VIAL IV PRN (13:52)
[2019-12-20] MEDS ORDERED: POLYETHYLENE (MIRALAX) 17 GM PACK PO PRN (13:52)
[2019-12-20] MEDS ORDERED: ALUMINUM/MAGNESIUM SUSP 30 ML UDC PO PRN (13:52)
[2019-12-20] MEDS ORDERED: BENZONATATE 100 MG CAPSULE PO PRN (13:52)
[2019-12-20] MEDS ORDERED: ACETAMINOPHEN 325 MG TAB PO PRN (13:52)
[2019-12-20] MEDS ORDERED: ALBUTEROL HFA 8 GM INHALER INH PRN (13:52)
[2019-12-20] MEDS ORDERED: MAGNESIUM HYDROXIDE SUSP 30 ML UDC PO PRN (13:52)
[2019-12-20] MEDS ORDERED: NSS + 20MEQ KCL 20 MEQ/1,000 ML BAG IV SCH (14:15)
[2019-12-20] MEDS: DOXYCYCLINE HYCLATE 100 MG in DEXTROSE 5% 100 ML IV SCH ×2 (14:27→20:55)
[2019-12-20] MEDS: ALBUT/IPRATROP 3MG/0.5MG NEB 3 ML VIAL NEB SCH ×2 (14:56→19:21)
--- NOTE | 2019-12-20 15:55 | Electrocardiogram Report ---
Test Reason : Blood Pressure : / mmHG Vent. Rate : 077 BPM Atrial Rate : 077 BPM P-R Int : 160 ms QRS Dur : 074 ms QT Int : 356 ms P-R-T Axes : 000 -19 -05 degrees QTc Int : 402 ms Normal sinus rhythm Inferior infarct , age undetermined Abnormal ECG When compared with ECG of 19-DEC-2019 18:28, (unconfirmed) Inferior infarct is now Present Confirmed by Edwin Shannon ([id number]) on 12/20/2019 3:54:46 PM Referred By: REFERRED SELF Confirmed By:Edwin Shannon
[2019-12-20] MEDS ORDERED: PNEUMOCOCCAL Polysaccharide Vaccine 25mcg/0.5mL vial/Syr IM ONE (16:00)
[2019-12-20] MEDS: predniSONE 20 MG TAB PO SCH (16:27)
[2019-12-20] MEDS: FLUTICASONE/VILANTEROL 200/25MCG 14 PUFFS/INHALER INH SCH (16:28)
[2019-12-20] MEDS: OSELTAMIVIR PHOSPHATE SUSP 30 MG/5 ML UDP PO SCH (20:58)
[2019-12-20] MEDS: PANTOprazole 40 MG TAB PO SCH (20:58)
[2019-12-20] MEDS: HEPARIN SOD 5,000 UNIT/0.5 ML VIAL SQ SCH (20:59)
[2019-12-21 07:03] LABS: Estimated Average Glucose 128 mg/dl; Hemoglobin A1C 6.1 % (4.5-5.6)
[2019-12-21] MEDS: ALBUT/IPRATROP 3MG/0.5MG NEB 3 ML VIAL NEB SCH ×4 (07:13→19:09)
--- NOTE | 2019-12-21 07:57 | Hospitalist Progress Note ---
Date of Service December 21, 2019 Assessment & Plan (1) Acute respiratory failure with hypoxia: Mr. Medina is a 69 yo M who tested positive for Influenza B on 12/19/19 and returned to the [facility] ED on 12/19 for worsening SOB, found to have superimposed PNA, admitted for acute hypoxic respiratory failure. - currently satting 95% on 3L via NC. Wean oxygen as tolerated. - Duo-Nebs q4 prn - currently on day 2 of prednisone 40mg - treat underlying infections as below (2) Influenza B: - tested positive on 12/19/19 - On day 3 of 5 of Tamiflu - supplemental O2 as above (3) Pneumonia: - Chest XR on admission showing a left lower lobar infiltrate suggestive of a superimposed influenza PNA - CURB 65 score 2, placing him at moderate risk - no risk factors for HCAP - currently on Day 11/22 of Ceftriaxone and Doxycycline. - WBC normal, blood cultures pending - sputum culture ordered, although utility is questionable given ABX already started - currently on day 11/20 of prednisone 40mg (4) GERD (gastroesophageal reflux disease): continueue home pantoprazole (5) Hyperlipidemia: continue home Zocor (6) Hypertension: - BP currently at goal at 131/75 - continue norvasc 5mg qAM - holding home lisinopril given relative hypotension on admission (7) Weakness: likely secondary to acute influenza pneumonia infection - PT/OT ordered CODE STATUS: FULL DVT PPX: Heparin 5,000 units, SQ q8 Diet: Heart Healthy Dispo: Med/Surg Admission and Anticipated Discharge Date Admission Date: December 20, 2019 Supervising Physician Co-Signing Physician Notes Patient seen and examined with Dr. Bah. I agree with her exam findings, review of systems, assessment and plan. I have personally reviewed the lab work and imaging from today. patient feeling a little better, breathing well, has a cough, diaphoretic appetite is still not great feels really fatigued, trying to get rest but "everyone keeps waking me up" reviewed chart, reviewed labs Exam: WDWN male, No distress, diaphoretic, lungs with crackles left base, no wheezing, normal effort, + cough heart regular S1/S2, no murmurs abdomen soft, ND, NT, +BS - Acute hypoxic respiratory failure: still requiring 3L NC, no distress, try to wean oxygen hypoxia due to Influenza B and bacterial pneumonia - Influenza B: continue Tamiflu for 5 day course, no fever today - Left lower lobe bacterial pneumonia: responding well to Rocephin and Doxycycline complete 7 day course hopeful for d/c tomorrow Subjective Still feeling weak, although improved since admission. Not in any discomfort. Eating well. Toileting well. Has not ambulated much Review of Systems Constitutional: + weakness Physical Exam Constitutional: WD/WN, vitals as above + obese Eyes: + anicteric sclerae ENMT: external ear and nose normal, oropharynx normal Neck: normal visual inspection and trachea midline Respiratory: normal respiratory effort; no respiratory distress and no labored breathing Auscultation: + diminished lung sounds (left lower lobe); no crackles, no rales, no rhonchi, no wheezes and no pleural rub Cardiovascular: RRR, no murmur, no edema Heart Sounds: normal S1 and normal S2 Extremities: no edema Gastrointestinal (Abdomen): normal bowel sounds, soft, nontender, no hepatosplenomegaly Skin: no rashes, warm and dry Psychiatric: A+Ox3, euthymic affect Results & Data ([facility]) Vital Signs (Past 12 Hours) Vital Signs Temp Pulse Pulse Pulse Resp BP Pulse Ox 12/21/19 07:28 58 L 12/21/19 07:13 60 17 96 12/21/19 04:07 36.6 C 92 H 20 107/56 L 94 12/21/19 01:39 74 12/21/19 00:36 36.8 C 72 20 132/73 95 Resident Activity Tracking Resident Involvement: Resident Care Provided Care Provided: Adult Hospital Medicine (1) Pneumonia Laterality: unspecified laterality Lung location: unspecified part of lung Pneumonia type: due to unspecified organism Qualified Code(s): J18.9 - Pneumonia, unspecified organism
[2019-12-21 08:09] LABS: Chol HDL Ratio 3; Cholesterol 106 mg/dl (0-200); HDL Cholesterol 38 mg/dl; LDL Cholesterol Calculated 56 mg/dl; Triglycerides 62 mg/dl (0-150); VLDL Cholesterol 12 mg/dl
[2019-12-21] MEDS: AMLODIPINE BESYLATE 5 MG TAB PO SCH (08:50)
[2019-12-21] MEDS: predniSONE 20 MG TAB PO SCH (08:50)
[2019-12-21] MEDS: SIMVASTATIN 10 MG TAB PO SCH (08:50)
[2019-12-21] MEDS: MULTIVITAMIN TAB PO SCH (08:50)
[2019-12-21] MEDS: HEPARIN SOD 5,000 UNIT/0.5 ML VIAL SQ SCH ×2 (08:51→20:27)
[2019-12-21] MEDS: FLUTICASONE/VILANTEROL 200/25MCG 14 PUFFS/INHALER INH SCH (08:51)
[2019-12-21] MEDS: PANTOprazole 40 MG TAB PO SCH ×2 (08:57→20:26)
[2019-12-21] MEDS: DOXYCYCLINE HYCLATE 100 MG in DEXTROSE 5% 100 ML IV SCH ×2 (08:59→20:19)
[2019-12-21] MEDS: OSELTAMIVIR PHOSPHATE SUSP 30 MG/5 ML UDP PO SCH ×2 (08:59→20:31)
[2019-12-21] MEDS: cefTRIAXone SODIUM 2,000 MG in DEXTROSE 5% 50 ML IV SCH (11:18)
[2019-12-21] MEDS ORDERED: SERTRALINE HCL 50 MG TABLET PO SCH (17:15)
[2019-12-21] MEDS: SERTRALINE HCL 50 MG TABLET PO SCH (18:05)
[2019-12-22] MEDS: ALBUT/IPRATROP 3MG/0.5MG NEB 3 ML VIAL NEB SCH ×2 (07:19→11:30)
--- NOTE | 2019-12-22 07:39 | Discharge Summary ---
Date of Service December 22, 2019 Admission HPI Per Admitting Provider The patient is a 69 years old male with past medical history of GERD, hyperlipidemia, hypertension, was seen in the ER for flulike symptoms and found to be positive for influenza B. Patient was started on oseltamivir 75 mg twice daily yesterday but his said that he started to feel very sick yesterday night and she had to bring him back to the hospital today. Patient was also given fluid yesterday and this morning when he came in he was very short of breath and needed supplemental oxygen. Patient denies hemoptysis hematuria or dysuria abdominal pain. Labs are reviewed which shows influenza B positive from yesterday, WBC 6.91, hemoglobin 13.4, hematocrit 40.7, platelets 291, sodium 137, potassium 3.7, chloride 110, carbon dioxide 20, anion gap 8, BUN 10, creatinine 1.39, GFR 51.3, glucose 103, lactate 1.6, calcium 8.6, total bili 0.7, AST 14, ALT 16, alkaline phosphatase 60, troponin 0.015, C-reactive protein 2.51, albumin 3.4, globulin 3.8, lipase 153, urine yellow, urine appearance clear, trace ketones, urine blood negative, urine nitrate negative, urine bilirubin, negative urine, urobilinogen negative, leukocyte esterase negative. Chest x-rays are reviewed: Which shows that there has been interval development of the mild opacity within the lateral left lung base. Mild cardiomegaly is noted without evidence of pulmonary edema. No pneumothorax or pleural effusion is noted. The interval development of the mild left basilar opacity which favors pneumonia. Blood cultures and sputum cultures are pending. The decision was made to admit patient to [facility] on telemetry for influenza B and early pneumonia. Admission Exam Per Admitting Provider Constitutional: WD/WN, vitals as above well developed and + ill appearing Eyes: PERRL, conjunctivae normal, anicteric sclerae ENMT: external ear and nose normal, oropharynx normal Neck: trachea midline, no thyromegaly Respiratory: + respiratory distress, + labored breathing and + uses accessory muscles Auscultation: + crackles and + wheezes Cardiovascular: RRR, no murmur, no edema Gastrointestinal (Abdomen): normal bowel sounds, soft, nontender, no hepa tosplenomegaly Musculoskeletal: no cyanosis or clubbing, extremities motor strength 5/5 Skin: no rashes, warm and dry Neurologic: patellar DTR's 2+ bilat, sensation intact Psychiatric: A+Ox3, euthymic affect Lymphatic: no cervical or axillary lymphadenopathy Principal Diagnosis Influenza Pneumonia Discharge Exam Constitutional WD/WN, vitals as above + obese Eyes + anicteric sclerae ENMT external ear and nose normal, oropharynx normal Neck normal visual inspection and trachea midline Respiratory normal respiratory effort; no respiratory distress and no labored breathing Auscultation: + diminished lung sounds (left lower lobe); no crackles, no rales, no rhonchi, no wheezes and no pleural rub Cardiovascular RRR, no murmur, no edema Heart Sounds: normal S1 and normal S2 Extremities: no edema Gastrointestinal (Abdomen) normal bowel sounds, soft, nontender, no hepatosplenomegaly Skin no rashes, warm and dry Psychiatric A+Ox3, euthymic affect Discharge Data Allergies Allergy/AdvReac Type Severity Reaction Status Date / Time Penicillins Allergy Mild HIVES Verified 12/20/19 10:24 strawberry Allergy Unknown HIVES Verified 12/20/19 10:24 Consultations 12/20/19 10:56 ED Decision to Admit Stat Hospital Course (1) Acute respiratory failure with hypoxia: Mr. Medina is a 69 yo M who tested positive for Influenza B on 12/19/19 and returned to the [facility] ED on 12/19 for worsening SOB, found to have superimposed PNA, admitted for acute hypoxic respiratory failure. Mr. Medina's acute hypoxic respiratory failure was caused by his influenza B infection with superimposed left lower lobar pneumonia. CXR showed WBC was normal throughout hospital stay, and blood cultures showed no growth through 24 hours. His Tamiflu, which he started as an outpatient, was continued in the hospital. He was treated with Ceftriaxone and Doxycycline for community acquired bacterial PNA. We recommend he continue this antibiotic coverage after discharge for a total of 7 days of therapy. He was also treated with Duo-Nebs as needed and oral prednisone 40mg, daily. He was provided with a script to complete his 5 day prednisone course after discharge. Initially, he required supplemental O2 delivered via nasal cannula to maintain saturations. He was weaned to room air by the time of discharge. He clinically improved while under our care. Outpatient items to do: clinical lung exam (2) Influenza B: as above (3) Pneumonia: as above (4) GERD (gastroesophageal reflux disease): continue home pantoprazole Outpatient items to do: none (5) Hyperlipidemia: continue home Zocor. Lipid panel obtained in the hospital showed a total cholesterol of 106, LD L of 56, HDL of 38, ratio of 3. TG were 62. Outpatient items to do: none (6) Hypertension: BP was at goal throughout hospital stay, although his lisinopril was held due hypotension on admission. Potassium was normal at 3.7. He may resume home medications at discharge. 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 Medina and his describe a slow descent in functioning since his CVA 11 years ago. Mr. Medina described both physical and emotional deficits since his stroke. He denies depressed mood but endorses lack of motivation, feels of worthlessness, anhedonia, difficulty sleeping, feeling anxious, and even panic attacks while in public. He denied SI/HI. It was difficult to assess his premodinant mood disorder: depression vs. anxiety. His asked if he could be started on a medication and, for the first time in over a decade, Mr. Medina agreed to try medication for these symptoms. He is safe to do go home. Sertraline 50mg, daily was started. Outpatient items to do: track PHQ-9 score and augment therapy as needed. Total Time Total Time Spent Total Time Spent (In Minutes): see attending attestation Discharge Plan Discharge Items Patient Disposition: Home - Self-Care Reason For Visit: SOB AND COUGH Discharge Diagnosis: Influenza Pneumonia Activity: Resume your previous activity Non-emergency contact: Primary Care Provider Call non-emergency contact if: you have any medication questions and your symptoms worsen Follow-up/Referrals: Tara Polanco CRNP [Primary Care Provider] - Lauren Bah MD [Resident] - Diet: Regular Addtl Attending Provider Instructions: You were admitted to [facility] for treatment of Influenza B and a superimposed pneumonia, or infection in the lung. You were treated with a medication called "tamiflu" for influenza, and two antibiotics for a bacterial pneumonia. Please continue the Tamiflu, 75mg, twice daily for 2 additional days after discharge. Please continue Doxycycline 100mg, twice daily for 5 days AND Cefdinir 300mg, twice daily for 5 days. We also treated you with a steroid known as prednisone to help reduce inflammation of your airways. Please continue to take prednisone 40mg, for 2 days after discharge. You were also started on a medication called sertraline, 50mg, daily for symptoms of depression and anxiety that you have been struggling with since your stroke. Please continue to take on a daily basis. It may take up to 8 weeks for the medication to take full effect. Please follow up with your primary care provider within one week. Pending Studies at Discharge: No Stand-Alone Forms: My [facility], Smoking Cessation Medications and DC Order Prescriptions: New sertraline 50 mg Tablet 50 mg PO QAM Qty: 30 RF: 3 prednisone 20 mg Tablet 40 mg PO DAILY 2 Days Qty: 4 RF: 0 doxycycline hyclate 100 mg capsule 100 mg PO BID 5 Days Qty: 10 RF: 0 cefdinir 300 mg capsule 300 mg PO BID 5 Days Qty: 10 RF: 0 Continued multivitamin Tablet 1 tab PO QAM RF: 0 simvastatin 10 mg tablet 10 mg PO QAM RF: 0 amlodipine 5 mg tablet 5 mg PO QAM RF: 0 pantoprazole 40 mg tablet,delayed release (DR/EC) 40 mg PO BID RF: 0 benzonatate [Tessalon Perles] 100 mg capsule 100 mg PO TID PRN (Reason: cough) Qty: 15 RF: 0 acetaminophen 500 mg Tablet 500 mg PO Q6H PRN (Reason: Pain) RF: 0 oseltamivir [Tamiflu] 75 mg capsule 75 mg PO BID 2 Days Qty: 9 RF: 0 Discharge Orders: Discharge Order (Routine); Ordered 12/22/19 Ordered By: Lauren López/Other Patient Handouts: A1C Admission Data Admit Date/Time: 12/20/19 11:55 Attending Provider: Frantz Quesada Admit Provider: Frantz Quesada Primary Care Provider: Tara Polanco Other Providers: Frantz Quesada Other Interventions: Discharge Summary Assessment (RN) Last Done: 12/22/19 12:13 DC Date/Time DO NOT enter until pt leaves facility: 12/22/19 12:43 Supervising Physician Co-Signing Physician Notes Patient seen and examined with Dr. Bah. I agree with her exam findings, review of systems, assessment and plan. I have personally reviewed the lab work from today. patient feeling a lot better, more rested breathing is at baseline will complete course of Tamiflu agrees to start Zoloft for depression Exam: WDWN male, No distress lungs with crackles left base, no wheezing, normal effort heart regular S1/S2, no murmurs abdomen soft, ND, NT, +BS - Acute hypoxic respiratory failure: weaned to room air over 36 hours hypoxia due to Influenza B and bacterial pneumonia, responding well to treatment - Influenza B: continue Tamiflu for 5 day course, no fever today - Left lower lobe bacterial pneumonia: responding well to Rocephin and Doxycycline complete 7 day course of PO antibiotics follow up with PCP Resident Activity Tracking Resident Involvement: Resident Care Provided Care Provided: Adult Hospital Medicine
[2019-12-22] MEDS: DOXYCYCLINE HYCLATE 100 MG in DEXTROSE 5% 100 ML IV SCH ×2 (08:17→08:26)
[2019-12-22] MEDS: OSELTAMIVIR PHOSPHATE SUSP 30 MG/5 ML UDP PO SCH (08:17)
[2019-12-22] MEDS: predniSONE 20 MG TAB PO SCH (08:18)
[2019-12-22] MEDS: SERTRALINE HCL 50 MG TABLET PO SCH (08:18)
[2019-12-22] MEDS: AMLODIPINE BESYLATE 5 MG TAB PO SCH (08:18)
[2019-12-22] MEDS: SIMVASTATIN 10 MG TAB PO SCH (08:18)
[2019-12-22] MEDS: MULTIVITAMIN TAB PO SCH (08:18)
[2019-12-22] MEDS: PANTOprazole 40 MG TAB PO SCH (08:19)
[2019-12-22] MEDS: HEPARIN SOD 5,000 UNIT/0.5 ML VIAL SQ SCH (08:19)
[2019-12-22] MEDS: FLUTICASONE/VILANTEROL 200/25MCG 14 PUFFS/INHALER INH SCH (08:19)
[2019-12-22] MEDS: cefTRIAXone SODIUM 2,000 MG in DEXTROSE 5% 50 ML IV SCH (11:51)
--- NOTE | 2019-12-22 14:22 | Billing Data ---
Date of Service December 21, 2019 Coding Level of Care Code 71932 Subseq Hosp Care Lvl 3
--- NOTE | 2019-12-22 14:23 | Billing Data ---
Date of Service December 22, 2019 Coding Level of Care Code D/C Day Management >30 mins Time Spent (min) 32
== END 2019-12-22 12:43 | disposition home or self-care (01) | DRG 193 ==
LOC: ED 08:56 → 2W 11:55

== ENCOUNTER 2022-02-14 23:00 | Inpatient (IN) ==
[2022-02-14] MEDS ORDERED: SODIUM CHLORIDE 0.9% 1000ML 1,000 ML IV SCH (23:45)
[2022-02-14] MEDS ORDERED: SODIUM CHLORIDE 0.9% 500 ML IV SCH (23:45)
--- NOTE | 2022-02-15 00:03 | Emergency Department Note ---
Impression & Plan Unwitnessed fall, H/O: stroke, Weakness ED Provider Note CHIEF COMPLAINT: Weak, found down HISTORY OF PRESENT ILLNESS: This 68 yo male patient presents to the emergency department with c/o weakness, AMS after being found down. The patient's longtime girlfriend went to work at approximately 6:45 AM and the patient just getting out of bed but drinking coffee. He was in his usual state. Patient is unable to recall falling today but was found in the doorway. His girlfriend states he is a bit "off" and she is concerned that he may have had a small stroke. Patient is currently complaining of pain all over. He does not localize pain to the hip as previously noted. He is unable to give any estimate of time or details of the injuries. Pt does have h/o "large stroke" in the past. Patient is not anticoagulated. He takes a blood pressure medication and cholesterol medication. REVIEW OF SYSTEMS: A review of systems was performed with positives and pertinent negatives listed in the history of present illness. 10 systems were reviewed and are otherwise negative. ALLERGIES: see below MEDICATIONS: see below PMH: see below SOCIAL HISTORY: see below DDx: Infection, dehydration, metabolic abnormality, hypo/hyperglycemia, electrolyte disturbance, anemia, hypoxia, cardiac sources, intracerebral event, toxicologic, neurologic, as well as other pathologies. PHYSICAL EXAM: Vital signs reviewed. General: Chronically ill-appearing 71-year-old male, in no significant distress. HEENT: No scleral icterus, PERRLA, neck supple. MMM, atraumatic. Cardiovascular: Regular rate and rhythm, no extra sounds. Pulmonary: Clear to auscultation bilaterally, normal work of breathing. Abdomen: Soft, nontender, nondistended, positive bowel sounds. Musculoskeletal: Atraumatic, no peripheral edema. No pain to pelvic rocking and full range of motion of bilateral lower extremities including the hips. Nontender to palpation of the cervical, thoracic and lumbar spines. Neurologic: Patient awake alert and oriented x 3, speech is clear but slow. Intact [id number], negative pronator drift. Equal strength in bilateral upper extremities. 4/5 strength in bilateral lower extremities. Skin: Warm, dry, no rash EMERGENCY DEPARTMENT COURSE/MDM: This patient was evaluated and appeared to be in no significant distress. Patient is generally weak with mild appreciable weakness in the bilateral lower extremities but otherwise has no focal neurologic deficit. IV access was obtained and laboratory work was drawn. He was placed on the sole polisher and noted a normal sinus rhythm. Head CT was performed and is negative for acute intracranial abnormality however the CT ang iogram reveals some high-grade stenosis of the P1 segment of the [employer]. There is no focal occlusion. Given the patient's unknown downtime and otherwise unclear history of recent events, patient is felt not to be candidate for thrombolysis in any event. Case was discussed with the hospitalist service for further evaluation and management. Patient and family are aware of the plan and agreed. MONITORING: An order for cardiac monitoring was placed and the patient is noted to be in a NSR at 64 beats per minute. RADIOLOGY: See below EKG: NSR at 66 bpm, possible previous anterior infarction. Normal ST segments. No PVC, no PAC. Normal QT interval. DISPOSITION: Admission Past Med/Surg History Medical History (Updated 02/22/22 @ 09:37 by Jaja Galaviz MD) GERD (gastroesophageal reflux disease) No significant past medical history Surgical History No pertinent past surgical history Family History Other No pertinent family history in first degree relatives Social History Smoking Status: Former smoker Second Hand Exposure: No; Do You Dip or Chew Tobacco: Yes; Tobacco Cessation Education Requested by Patient: No Hx Alcohol Use: No Hx Substance Use: No Preferred Language: Romansh Communication Ability: Impaired Process Helper Required: No Beliefs That Will Affect Care: None marital status: Life Partner Current Living Situation: Significant Other Other Information That Helps Us Care for You: No Feels Safe at Home: Yes Safety Concerns: Feels Safe At This Time Assistive Devices: None Allergies Allergies Allergy/AdvReac Type Severity Reaction Status Date / Time sertraline Allergy Intermediate HIVES Verified 02/15/22 06:01 Penicillins Allergy Mild HIVES Verified 12/20/19 10:24 strawberry Allergy Unknown HIVES Verified 12/20/19 10:24 Home Meds Home Medications Medication Instructions Recorded Confirmed amlodipine 5 mg tablet 5 mg PO QAM 12/19/19 02/15/22 multivitamin 1 tab PO QAM 12/19/19 12/20/19 pantoprazole 40 mg tablet,delayed 40 mg PO DAILY 12/19/19 02/15/22 release simvastatin 10 mg tablet 10 mg PO QAM 12/19/19 02/15/22 acetaminophen 500 mg tablet 500 mg PO Q6H PRN 12/20/19 12/20/19 Previous Rx's Medication Instructions Recorded benzonatate 100 mg capsule 100 mg PO TID PRN #15 cap 12/19/19 (Karla Duarte) sertraline 50 mg tablet 50 mg PO QAM #30 tab 12/22/19 Results & Data (ED) Vital Signs Vital Signs - 24 hr 02/14/22 23:08 02/15/22 00:11 02/15/22 00:39 Temperature 36.8 C Temperature Source Oral Pulse Rate 66 74 Pulse Rate [Apical] Pulse Rhythm [Apical] Pulse Strength [Apical] Respiratory Rate 20 17 Respiratory Effort / Characteristics Non-Labored Respiratory Depth Normal Respiratory Pattern Regular Blood Pressure 111/65 126/83 Blood Pressure [Left Arm] Blood Pressure Mean 80 97 Blood Pressure Mean [Left Arm] Blood Pressure Position Left Lateral Blood Pressure Position [Left Arm] Pulse Oximetry 94 95 96 Oxygen Delivery Method Room Air Room Air Sepsis Recent Fever Within 48 Hours No Sepsis New/Unexplained Change in Mental Status No Sepsis Action Taken by Nursing No Action Required 02/15/22 01:03 02/15/22 01:05 02/15/22 01:30 Temperature Temperature Source Pulse Rate 64 58 L Pulse Rate [Apical] 55 L Pulse Rhythm [Apical] Regular Pulse Strength [Apical] Normal Respiratory Rate 18 17 18 Respiratory Effort / Characteristics Non-Labored Respiratory Depth Normal Respiratory Pattern Regular Blood Pressure 146/82 H Blood Pressure [Left Arm] 146/82 H Blood Pressure Mean 103 Blood Pressure Mean [Left Arm] 103 Blood Pressure Position Blood Pressure Position [Left Arm] Sitting Pulse Oximetry 93 92 93 Oxygen Delivery Method Room Air Sepsis Recent Fever Within 48 Hours Sepsis New/Unexplained Change in Mental Status Sepsis Action Taken by [facility] Medications Current Medication List: was personally reviewed by me Laboratory Data Attestation: I reviewed the patient's lab results. Result diagrams: 02/18/22 06:57 02/18/22 06:57 Lab Results 02/14/22 02/14/22 02/14/22 Range/Units 23:56 23:56 23:56 WBC 16.07 H (4.8-10.8) K/uL RBC 5.26 (4.7-6.1) M/uL Hgb 15.5 (14.0-18.0) g/dL Hct 45.6 (42-52) % MCV 86.7 (80-100) fL MCH 29.5 (25-34) pg MCHC 34.0 (32-36) g/dL RDW Std Deviation 42.7 (36.4-46.3) fL RDW Coeff of Alvaro 13.6 (11.5-14.5) % Plt Count 315 (130-400) K/uL MPV 8.6 (7.4-10.4) fL Immature Gran % (Auto) 0.3 % Neut % (Auto) 79.7 % Lymph % (Auto) 11.4 % Towner % (Auto) 8.0 % Eos % (Auto) 0.4 % Baso % (Auto) 0.2 % Neut # (Auto) 12.82 H (1.4-6.5) K/uL Lymph # (Auto) 1.83 (1.2-3.4) K/uL [place] # (Auto) 1.28 H (0.11-0.59) K/uL Eos # (Auto) 0.06 (0-0.5) K/uL Baso # (Auto) 0.03 (0-0.2) K/uL Immature Gran # (Auto) 0.05 H (0.00-0.02) K/uL Sodium 137 (136-145) mmol/L Potassium 4.0 (3.5-5.1) mmol/L Chloride 106 (98-107) mmol/L Carbon Dioxide 23 (21-32) mmol/L Anion Gap 8 (3-11) BUN 15 (6-23) mg/dl Creatinine 1.26 (0.6-1.4) mg/dl Est Cr Clr Drug Dosing 58.1 ml/min Est GFR ( Amer) 66.1 ml/min Est GFR (Non-Af Amer) 57.0 ml/min BUN/Creatinine Ratio 11.9 (10-20) Glucose 100 H (70-99(Fasting)) mg/dl Estimat Average Glucose mg/dl Hemoglobin A1c (4.5-5.6) % Calcium 9.5 (8.5-10.1) mg/dl Magnesium 2.1 (1.7-2.4) mg/dl Total Bilirubin 1.5 H (0.2-1.0) mg/dl Direct Bilirubin (0-0.2) mg/dl AST 14 (13-39) U/L ALT 8 (7-52) U/L Alkaline Phosphatase 66 (34-104) U/L Total Creatine Kinase 270 H (30-223) U/L Troponin I High Sens 7.1 (0-20) pg/ml Total Protein 6.9 (6.0-8.3) gm/dl Albumin 4.1 (3.4-5.0) gm/dl Globulin 2.8 (2.5-4.0) gm/dl Albumin/Globulin Ratio 1.5 (0.9-2) Triglycerides (0-150) mg/dl Cholesterol (0-200) mg/dl LDL Cholesterol, Calc mg/dl VLDL Cholesterol, Calc (0-30) mg/dl HDL Cholesterol mg/dl Cholesterol/HDL Ratio (0-5) Vitamin B12 (180-914) pg/ml Procalcitonin (0-0.5) ng/ml TSH (0.300-4.500) uIu/ml Urine Color Urine Appearance (Clear) Urine pH (4.5-7.5) Ur Specific [place] (1.000-1.030) Urine Protein (Negative) Urine Glucose (UA) (Negative) Urine Ketones (Negative) Urine Blood (Negative) Urine Nitrite (Negative) Urine Bilirubin (Negative) Urine Urobilinogen (Negative) Ur Leukocyte Esterase (Negative) Urine Opiates Screen (Neg) Ur Methadone, Qual (Neg) Urine Barbiturates (Neg) Ur Phencyclidine (PCP) (Neg) U Amphetamin/Meth Scrn (Neg) MDMA (Ecstasy) Screen (Neg) U Benzodiazepines Scrn (Neg) Ur Cocaine Metabolite (Neg) U Marijuana (THC) Screen (Neg) SARS-CoV-2, RNA, NAAT (NEGATIVE) 02/14/22 02/14/22 02/14/22 Range/Units 23:56 23:56 23:56 WBC (4.8-10.8) K/uL RBC (4.7-6.1) M/uL Hgb (14.0-18.0) g/dL Hct (42-52) % MCV (80-100) fL MCH (25-34) pg MCHC (32-36) g/dL RDW Std Deviation (36.4-46.3) fL RDW Coeff of Alvaro (11.5-14.5) % Plt Count (130-400) K/uL MPV (7.4-10.4) fL Immature Gran % (Auto) % Neut % (Auto) % Lymph % (Auto) % Towner % (Auto) % Eos % (Auto) % Baso % (Auto) % Neut # (Auto) (1.4-6.5) K/uL Lymph # (Auto) (1.2-3.4) K/uL [place]er # (Auto) (0.11-0.59) K/uL Eos # (Auto) (0-0.5) K/uL Baso # (Auto) (0-0.2) K/uL Immature Gran # (Auto) (0.00-0.02) K/uL Sodium (136-145) mmol/L Potassium (3.5-5.1) mmol/L Chloride (98-107) mmol/L Carbon Dioxide (21-32) mmol/L Anion Gap (3-11) BUN (6-23) mg/dl Creatinine (0.6-1.4) mg/dl Est Cr Clr Drug Dosing ml/min Est GFR ( Amer) ml/min Est GFR (Non-Af Amer) ml/min BUN/Creatinine Ratio (10-20) Glucose (70-99(Fasting)) mg/dl Estimat Average Glucose mg/dl Hemoglobin A1c (4.5-5.6) % Calcium (8.5-10.1) mg/dl Magnesium (1.7-2.4) mg/dl Total Bilirubin (0.2-1.0) mg/dl Direct Bilirubin (0-0.2) mg/dl AST (13-39) U/L ALT (7-52) U/L Alkaline Phosphatase (34-104) U/L Total Creatine Kinase (30-223) U/L Troponin I High Sens (0-20) pg/ml Total Protein (6.0-8.3) gm/dl Albumin (3.4-5.0) gm/dl Globulin (2.5-4.0) gm/dl Albumin/Globulin Ratio (0.9-2) Triglycerides (0-150) mg/dl Cholesterol (0-200) mg/dl LDL Cholesterol, Calc mg/dl VLDL Cholesterol, Calc (0-30) mg/dl HDL Cholesterol mg/dl Cholesterol/HDL Ratio (0-5) Vitamin B12 278 (180-914) pg/ml Procalcitonin < 0.05 (0-0.5) ng/ml TSH 2.941 (0.300-4.500) uIu/ml Urine Color Urine Appearance (Clear) Urine pH (4.5-7.5) Ur Specific [place] (1.000-1.030) Urine Protein (Negative) Urine Glucose (UA) (Negative) Urine Ketones (Negative) Urine Blood (Negative) Urine Nitrite (Negative) Urine Bilirubin (Negative) Urine Urobilinogen (Negative) Ur Leukocyte Esterase (Negative) Urine Opiates Screen (Neg) Ur Methadone, Qual (Neg) Urine Barbiturates (Neg) Ur Phencyclidine (PCP) (Neg) U Amphetamin/Meth Scrn (Neg) MDMA (Ecstasy) Screen (Neg) U Benzodiazepines Scrn (Neg) Ur Cocaine Metabolite (Neg) U Marijuana (THC) Screen (Neg) SARS-CoV-2, RNA, NAAT (NEGATIVE) 02/14/22 02/14/22 02/15/22 Range/Units 23:56 23:56 00:13 WBC (4.8-10.8) K/uL RBC (4.7-6.1) M/uL Hgb (14.0-18.0) g/dL Hct (42-52) % MCV (80-100) fL MCH (25-34) pg MCHC (32-36) g/dL RDW Std Deviation (36.4-46.3) fL RDW Coeff of Alvaro (11.5-14.5) % Plt Count (130-400) K/uL MPV (7.4-10.4) fL Immature Gran % (Auto) % Neut % (Auto) % Lymph % (Auto) % Towner % (Auto) % Eos % (Auto) % Baso % (Auto) % Neut # (Auto) (1.4-6.5) K/uL Lymph # (Auto) (1.2-3.4) K/uL [place] # (Auto) (0.11-0.59) K/uL Eos # (Auto) (0-0.5) K/uL Baso # (Auto) (0-0.2) K/uL Immature Gran # (Auto) (0.00-0.02) K/uL Sodium (136-145) mmol/L Potassium (3.5-5.1) mmol/L Chloride (98-107) mmol/L Carbon Dioxide (21-32) mmol/L Anion Gap (3-11) BUN (6-23) mg/dl Creatinine (0.6-1.4) mg/dl Est Cr Clr Drug Dosing ml/min Est GFR ( Amer) ml/min Est GFR (Non-Af Amer) ml/min BUN/Creatinine Ratio (10-20) Glucose (70-99(Fasting)) mg/dl Estimat Average Glucose 120 mg/dl Hemoglobin A1c 5.8 H (4.5-5.6) % Calcium (8.5-10.1) mg/dl Magnesium (1.7-2.4) mg/dl Total Bilirubin (0.2-1.0) mg/dl Direct Bilirubin (0-0.2) mg/dl AST (13-39) U/L ALT (7-52) U/L Alkaline Phosphatase (34-104) U/L Total Creatine Kinase (30-223) U/L Troponin I High Sens (0-20) pg/ml Total Protein (6.0-8.3) gm/dl Albumin (3.4-5.0) gm/dl Globulin (2.5-4.0) gm/dl Albumin/Globulin Ratio (0.9-2) Triglycerides 105 (0-150) mg/dl Cholesterol 183 (0-200) mg/dl LDL Cholesterol, Calc 119 mg/dl VLDL Cholesterol, Calc 21 (0-30) mg/dl HDL Cholesterol 43 mg/dl Cholesterol/HDL Ratio 4.3 (0-5) Vitamin B12 (180-914) pg/ml Procalcitonin (0-0.5) ng/ml TSH (0.300-4.500) uIu/ml Urine Color Urine Appearance (Clear) Urine pH (4.5-7.5) Ur Specific [place] (1.000-1.030) Urine Protein (Negative) Urine Glucose (UA) (Negative) Urine Ketones (Negative) Urine Blood (Negative) Urine Nitrite (Negative) Urine Bilirubin (Negative) Urine Urobilinogen (Negative) Ur Leukocyte Esterase (Negative) Urine Opiates Screen Neg (Neg) Ur Methadone, Qual Neg (Neg) Urine Barbiturates Neg (Neg) Ur Phencyclidine (PCP) Neg (Neg) U Amphetamin/Meth Scrn Neg (Neg) MDMA (Ecstasy) Screen Neg (Neg) U Benzodiazepines Scrn Neg (Neg) Ur Cocaine Metabolite Neg (Neg) U Marijuana (THC) Screen Neg (Neg) SARS-CoV-2, RNA, NAAT (NEGATIVE) 02/15/22 02/15/22 02/16/22 Range/Units 03:13 04:20 06:03 WBC 11.45 H (4.8-10.8) K/uL RBC 4.99 (4.7-6.1) M/uL Hgb 14.6 (14.0-18.0) g/dL Hct 44.1 (42-52) % MCV 88.4 (80-100) fL MCH 29.3 (25-34) pg MCHC 33.1 (32-36) g/dL RDW Std Deviation 45.0 (36.4-46.3) fL RDW Coeff of Alvaro 13.9 (11.5-14.5) % Plt Count 316 (130-400) K/uL MPV 8.9 (7.4-10.4) fL Immature Gran % (Auto) 0.3 % Neut % (Auto) 63.6 % Lymph % (Auto) 21.9 % Towner % (Auto) 9.2 % Eos % (Auto) 4.7 % Baso % (Auto) 0.3 % Neut # (Auto) 7.29 H (1.4-6.5) K/uL Lymph # (Auto) 2.51 (1.2-3.4) K/uL [place] # (Auto) 1.05 H (0.11-0.59) K/uL Eos # (Auto) 0.54 H (0-0.5) K/uL Baso # (Auto) 0.03 (0-0.2) K/uL Immature Gran # (Auto) 0.03 H (0.00-0.02) K/uL Sodium (136-145) mmol/L Potassium (3.5-5.1) mmol/L Chloride (98-107) mmol/L Carbon Dioxide (21-32) mmol/L Anion Gap (3-11) BUN (6-23) mg/dl Creatinine (0.6-1.4) mg/dl Est Cr Clr Drug Dosing ml/min Est GFR ( Amer) ml/min Est GFR (Non-Af Amer) ml/min BUN/Creatinine Ratio (10-20) Glucose (70-99(Fasting)) mg/dl Estimat Average Glucose mg/dl Hemoglobin A1c (4.5-5.6) % Calcium (8.5-10.1) mg/dl Magnesium (1.7-2.4) mg/dl Total Bilirubin (0.2-1.0) mg/dl Direct Bilirubin (0-0.2) mg/dl AST (13-39) U/L ALT (7-52) U/L Alkaline Phosphatase (34-104) U/L Total Creatine Kinase (30-223) U/L Troponin I High Sens (0-20) pg/ml Total Protein (6.0-8.3) gm/dl Albumin (3.4-5.0) gm/dl Globulin (2.5-4.0) gm/dl Albumin/Globulin Ratio (0.9-2) Triglycerides (0-150) mg/dl Cholesterol (0-200) mg/dl LDL Cholesterol, Calc mg/dl VLDL Cholesterol, Calc (0-30) mg/dl HDL Cholesterol mg/dl Cholesterol/HDL Ratio (0-5) Vitamin B12 (180-914) pg/ml Procalcitonin (0-0.5) ng/ml TSH (0.300-4.500) uIu/ml Urine Color Yellow Urine Appearance Clear (Clear) Urine pH 5.5 (4.5-7.5) Ur Specific [place] 1.020 (1.000-1.030) Urine Protein Negative (Negative) Urine Glucose (UA) Negative (Negative) Urine Ketones 1+ H (Negative) Urine Blood Negative (Negative) Urine Nitrite Negative (Negative) Urine Bilirubin Negative (Negative) Urine Urobilinogen Negative (Negative) Ur Leukocyte Esterase Negative (Negative) Urine Opiates Screen (Neg) Ur Methadone, Qual (Neg) Urine Barbiturates (Neg) Ur Phencyclidine (PCP) (Neg) U Amphetamin/Meth Scrn (Neg) MDMA (Ecstasy) Screen (Neg) U Benzodiazepines Scrn (Neg) Ur Cocaine Metabolite (Neg) U Marijuana (THC) Screen (Neg) SARS-CoV-2, RNA, NAAT NEGATIVE (NEGATIVE) 02/16/22 Range/Units 06:03 WBC (4.8-10.8) K/uL RBC (4.7-6.1) M/uL Hgb (14.0-18.0) g/dL Hct (42-52) % MCV (80-100) fL MCH (25-34) pg MCHC (32-36) g/dL RDW Std Deviation (36.4-46.3) fL RDW Coeff of Alvaro (11.5-14.5) % Plt Count (130-400) K/uL MPV (7.4-10.4) fL Immature Gran % (Auto) % Neut % (Auto) % Lymph % (Auto) % [place] % (Auto) % Eos % (Auto) % Baso % (Auto) % Neut # (Auto) (1.4-6.5) K/uL Lymph # (Auto) (1.2-3.4) K/uL [place] # (Auto) (0.11-0.59) K/uL Eos # (Auto) (0-0.5) K/uL Baso # (Auto) (0-0.2) K/uL Immature Gran # (Auto) (0.00-0.02) K/uL Sodium 138 (136-145) mmol/L Potassium 4.0 (3.5-5.1) mmol/L Chloride 109 H (98-107) mmol/L Carbon Dioxide 23 (21-32) mmol/L Anion Gap 6 (3-11) BUN 17 (6-23) mg/dl Creatinine 1.22 (0.6-1.4) mg/dl Est Cr Clr Drug Dosing 56.4 ml/min Est GFR ( Amer) 68.7 ml/min Est GFR (Non-Af Amer) 59.3 ml/min BUN/Creatinine Ratio 13.9 (10-20) Glucose 94 (70-99(Fasting)) mg/dl Estimat Average Glucose mg/dl Hemoglobin A1c (4.5-5.6) % Calcium 8.5 (8.5-10.1) mg/dl Magnesium (1.7-2.4) mg/dl Total Bilirubin 1.3 H (0.2-1.0) mg/dl Direct Bilirubin 0.2 (0-0.2) mg/dl AST 15 (13-39) U/L ALT 7 (7-52) U/L Alkaline Phosphatase 59 (34-104) U/L Total Creatine Kinase 333 H (30-223) U/L Troponin I High Sens (0-20) pg/ml Total Protein 6.3 (6.0-8.3) gm/dl Albumin 3.6 (3.4-5.0) gm/dl Globulin 2.7 (2.5-4.0) gm/dl Albumin/Globulin Ratio 1.3 (0.9-2) Triglycerides (0-150) mg/dl Cholesterol (0-200) mg/dl LDL Cholesterol, Calc mg/dl VLDL Cholesterol, Calc (0-30) mg/dl HDL Cholesterol mg/dl Cholesterol/HDL Ratio (0-5) Vitamin B12 (180-914) pg/ml Procalcitonin (0-0.5) ng/ml TSH (0.300-4.500) uIu/ml Urine Color Urine Appearance (Clear) Urine pH (4.5-7.5) Ur Specific [place] (1.000-1.030) Urine Protein (Negative) Urine Glucose (UA) (Negative) Urine Ketones (Negative) Urine Blood (Negative) Urine Nitrite (Negative) Urine Bilirubin (Negative) Urine Urobilinogen (Negative) Ur Leukocyte Esterase (Negative) Urine Opiates Screen (Neg) Ur Methadone, Qual (Neg) Urine Barbiturates (Neg) Ur Phencyclidine (PCP) (Neg) U Amphetamin/Meth Scrn (Neg) MDMA (Ecstasy) Screen (Neg) U Benzodiazepines Scrn (Neg) Ur Cocaine Metabolite (Neg) U Marijuana (THC) Screen (Neg) SARS-CoV-2, RNA, NAAT (NEGATIVE) Administered Medications Aspirin (Aspirin 81 Mg Ectab) 81 mg PO QAM [facility]AN[facility] Stop: 03/18/22 08:59 Last Admin: 02/22/22 08:38 Dose: 81 mg Documented by: [id number] Admin: 02/21/22 08:01 Dose: 81 mg Documented by: [id number] Admin: 02/20/22 08:12 Dose: 81 mg Documented by: [id number] Admin: 02/19/22 08:51 Dose: 81 mg Documented by: [id number] Admin: 02/18/22 08:57 Dose: 81 mg Documented by: [id number] Admin: 02/17/22 08:41 Dose: 81 mg Documented by: [id number] Admin: 02/16/22 08:20 Dose: 81 mg Documented by: [id number] Atorvastatin Calcium (Atorvastatin 40 Mg Tab) 80 mg PO QAM [facility] Stop: 03/18/22 08:59 Last Admin: 02/22/22 08:38 Dose: 80 mg Documented by: [id number] Admin: 02/21/22 08:01 Dose: 80 mg Documented by: [id number] Admin: 02/20/22 08:12 Dose: 80 mg Documented by: [id number] Admin: 02/19/22 08:51 Dose: 80 mg Documented by: [id number] Admin: 02/18/22 08:57 Dose: 80 mg Documented by: [id number] Admin: 02/17/22 08:41 Dose: 80 mg Documented by: [id number] Admin: 02/16/22 08:21 Dose: 80 mg Documented by: [id number] Discontinued Medications Sodium Chloride (Nss 1000ml) 1,000 mls @ 125 mls/hr IV .Q8H [facility] Stop: 02/15/22 07:44 Last Infusion: 02/15/22 09:37 Dose: 0 mls/hr Documented by: [id number] Admin: 02/15/22 01:45 Dose: 125 mls/hr Documented by: [id number] Sodium Chloride (Nss) 500 mls @ 999 mls/hr IV .Q31M [facility] Stop: 02/15/22 00:15 Last Infusion: 02/15/22 01:46 Dose: 0 mls/hr Documented by: [id number] Admin: 02/15/22 00:13 Dose: 999 mls/hr Documented by: [id number] Ioversol (Optiray 320 125ml) 125 ml IV ONCE ONE Stop: 02/15/22 06:36 Last Admin: 02/15/22 06:35 Dose: 119 ml Documented by: [id number] Imaging Data Radiologist's Impression: Chest X-Ray 02/14/22 23:40 SINGLE VIEW CHEST CLINICAL HISTORY: Fall. Generalized weakness. FINDINGS: An AP, portable, upright chest radiograph is compared to study dated 12/20/2019. The heart is enlarged noting atherosclerotic calcification of the thoracic aorta. There is prominence of the pulmonary vasculature. Chronic interstitial thickening is similar to previous. Atelectasis is noted at the lung bases. The lungs and pleural spaces are otherwise clear. No pneumothorax is seen. The skeletal structures are osteopenic. The bony thorax is grossly intact. IMPRESSION: 1. Cardiomegaly with prominence of the pulmonary vasculature. Correlate clinically for evidence of mild congestive failure. 2. No airspace consolidation or large pleural effusion is identified. ACT 112: Negative or not required by law. Electronically signed by: Moses Vega M.D. 02/15/2022 7:[address] 02/14/22 23:40 CT angio neck with con, CT angio head w con, CT head/brain wo con CLINICAL HISTORY: 71 years-old Male with R sided weakness, syncope. Acute strokelike symptoms with right-sided weakness COMPARISON STUDY: Brain MRI 06/24/2011 TECHNIQUE: Following the IV administration of 119 mL of Optiray, CT angiogram of the head and neck was performed from the aortic arch to the skull base. Images are reviewed in the axial, sagittal, and coronal planes. 3-D MIPS images are created and assessed. IV contrast was administered without complication. Noncontrast head CT also obtained. All measurements were calculated based on NASCET criteria. A dose lowering technique was utilized adhering to the principles of ALARA. CT DOSE: 614.27 mGy.cm FINDINGS: CT HEAD: Age-related involutional changes. White matter hypodensities suggest chronic microvascular ischemic disease. Cerebral vascular calcifications. No acute intracranial hemorrhage, midline shift, abnormal extra-axial collection, hydr ocephalus, acute territorial infarct or intracranial mass. Chronic appearing lacunar infarcts of the basal ganglia. No acute calvarial fracture. Small left mastoid effusion. Minimal mucosal thickening of the paranasal sinuses. Soft tissues and orbits are unremarkable. CTA HEAD AND NECK: Three-vessel morphology of the thoracic aortic arch. There is patency of the innominate and imaged subclavian arteries. The common carotid arteries are patent. Atherosclerotic plaque of the carotid bulbs results in less than 50% stenosis bilaterally. The internal carotid arteries are widely patent. The middle and anterior cerebral arteries appear unremarkable. Mild multifocal luminal narrowing of the right middle cerebral artery. The left vertebral artery is dominant. Atherosclerotic plaque at the V4 segment of the left vertebral artery results in mild stenosis. The vertebral, basilar and posterior cerebral arteries are patent. Multifocal stenoses of the left posterior cerebral artery is high-grade within the P1 segment on image 386. The right posterior cerebral artery is patent. The cerebral venous sinuses are patent. No pneumothorax. Unremarkable soft tissues of the neck. Mild polypoid mucosal thickening of the left maxillary sinus. Degenerative changes of the cervical spine. IMPRESSION: 1. No acute intracranial abnormality. 2. 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 3. Atherosclerotic vascular disease without additional high-grade stenosis, aneurysm, dissection or proximal branch occlusion. ACT 112: Negative or not required by law. The above report was generated using voice recognition software. It may contain grammatical, syntax or spelling errors. Electronically signed by: Bebeto Morelos M.D. 02/15/2022 6:52 AM Hip X-Ray 02/15/22 02:06 XR hip RT min 2V CLINICAL HISTORY: Right hip pain following fall. COMPARISON: None FINDINGS: Alignment of the right hip is anatomic. No acute fracture. No osseous lesion is noted. No evidence for avascular necrosis of the right femoral head. No acute fracture within visualized portions of the pelvis. IMPRESSION: No acute fracture or dislocation within the right hip. ACT 112: Negative or not required by law. Electronically signed by: Drake Ryan M.D. 02/15/2022 8:01 AM Brain MRI 02/15/22 04:50 MRI OF THE BRAIN WITHOUT IV CONTRAST CLINICAL HISTORY: Fall. Stroke like symptoms. COMPARISON STUDY: CT of the brain dated 02/15/2022. TECHNIQUE: MRI of the brain was performed utilizing various T1 and T2-weighted sequences in the axial, sagittal, and coronal planes. IV contrast was not administered for this examination. FINDINGS: Brain parenchyma: There is a 13 mm focus of restricted diffusion in the left thalamus consistent with an acute to subacute lacunar infarct. Additional foci of restricted diffusion are present in the left occipital lobe. A punctate focus of restricted diffusion is seen in the left henson radiata. Hemosiderin deposition in the right cerebellar hemisphere suggests remote hemorrhage. No acute hemorrhage is identified. There is no mass effect. There is age-related involutional change noting advanced confluent subcortical and periventricular intrahepatic disease. Chronic lacunar infarcts are noted in the right thalamus, the left centrum semiovale, and the right caudate head. No extra-axial fluid collection is seen. The cerebellar tonsils are normal in configuration. Ventricles, sulci, and cisterns: Prominent secondary to involutional change. Pituitary and sella: Unremarkable. Intracranial vasculature: Normal flow voids are maintained at the skull base. Orbits: The bony orbits are grossly intact. Orbital contents are normal in appearance. Sinuses and mastoids: There is mild mucosal thickening within the maxillary antra. A 14 mm retention cyst is seen on the left. Mild mucosal thickening is also noted in the sphenoid sinuses. There is a left mastoid effusion. Calvarium: Unremarkable. Cervical cord: Partially visualized cervical spinal cord is normal in morphology and signal intensity. IMPRESSION: 1. There is a 13 mm focus of restricted diffusion centered in the left thalamus consistent with an acute to subacute lacunar infarct. 2. Additional foci of restricted diffusion are identified in the left occipital lobe and in the left henson radiata. These are also consistent with acute to subacute ischemia. 3. There is no evidence of acute hemorrhage or mass effect. 4. 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 Electronically signed by: Moses Vega M.D. 02/15/2022 7:28 AM Head CTA 02/15/22 05:30 CT angio neck with con, CT angio head w con, CT head/brain wo con CLINICAL HISTORY: 71 years-old Male with R sided weakness, syncope. Acute strokelike symptoms with right-sided weakness COMPARISON STUDY: Brain MRI 06/24/2011 TECHNIQUE: Following the IV administration of 119 mL of Optiray, CT angiogram of the head and neck was performed from the aortic arch to the skull base. Images are reviewed in the axial, sagittal, and coronal planes. 3-D MIPS images are created and assessed. IV contrast was administered without complication. Noncontrast head CT also obtained. All measurements were calculated based on NASCET criteria. A dose lowering technique was utilized adhering to the principles of ALARA. CT DOSE: 614.27 mGy.cm FINDINGS: CT HEAD: Age-related involutional changes. White matter hypodensities suggest chronic microvascular ischemic disease. Cerebral vascular calcifications. No acute intracranial hemorrhage, midline shift, abnormal extra-axial collection, hydrocephalus, acute territorial infarct or intracranial mass. Chronic appearing lacunar infarcts of the basal ganglia. No acute calvarial fracture. Small left mastoid effusion. Minimal mucosal thickening of the paranasal sinuses. Soft tissues and orbits are unremarkable. CTA HEAD AND NECK: Three-vessel morphology of the thoracic aortic arch. There is patency of the innominate and imaged subclavian arteries. The common carotid arteries are patent. Atherosclerotic plaque of the carotid bulbs results in less than 50% stenosis bilaterally. The internal carotid arteries are widely patent. The middle and anterior cerebral arteries appear unremarkable. Mild multifocal lum inal narrowing of the right middle cerebral artery. The left vertebral artery is dominant. Atherosclerotic plaque at the V4 segment of the left vertebral artery results in mild stenosis. The vertebral, basilar and posterior cerebral arteries are patent. Multifocal stenoses of the left posterior cerebral artery is high- grade within the P1 segment on image 386. The right posterior cerebral artery is patent. The cerebral venous sinuses are patent. No pneumothorax. Unremarkable soft tissues of the neck. Mild polypoid mucosal thickening of the left maxillary sinus. Degenerative changes of the cervical spine. IMPRESSION: 1. No acute intracranial abnormality. 2. 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 3. Atherosclerotic vascular disease without additional high-grade stenosis, aneurysm, dissection or proximal branch occlusion. ACT 112: Negative or not required by law. The above report was generated using voice recognition software. It may contain grammatical, syntax or spelling errors. Electronically signed by: Bebeto Morelos M.D. 02/15/2022 6:52 AM Neck CTA 02/15/22 05:30 CT angio neck with con, CT angio head w con, CT head/brain wo con CLINICAL HISTORY: 71 years-old Male with R sided weakness, syncope. Acute strokelike symptoms with right-sided weakness COMPARISON STUDY: Brain MRI 06/24/2011 TECHNIQUE: Following the IV administration of 119 mL of Optiray, CT angiogram of the head and neck was performed from the aortic arch to the skull base. Images a re reviewed in the axial, sagittal, and coronal planes. 3-D MIPS images are created and assessed. IV contrast was administered without complication. Noncontrast head CT also obtained. All measurements were calculated based on NASCET criteria. A dose lowering technique was utilized adhering to the p rinciples of TALITA. CT DOSE: 614.27 mGy.cm FINDINGS: CT HEAD: Age-related involutional changes. White matter hypodensities suggest chronic microvascular ischemic disease. Cerebral vascular calcifications. No acute intracranial hemorrhage, midline shift, abnormal extra-axial collection, hydrocephalus, acute territorial infarct or intracranial mass. Chronic appearing lacunar infarcts of the basal ganglia. No acute calvarial fracture. Small left mastoid effusion. Minimal mucosal thickening of the paranasal sinuses. Soft tissues and orbits are unremarkable. CTA HEAD AND NECK: Three-vessel morphology of the thoracic aortic arch. There is patency of the innominate and imaged subclavian arteries. The common carotid arteries are patent. Atherosclerotic plaque of the carotid bulbs results in less than 50% stenosis bilaterally. The internal carotid arteries are widely patent. The middle and anterior cerebral arteries appear unremarkable. Mild multifocal luminal narrowing of the right middle cerebral artery. The left vertebral artery is dominant. Atherosclerotic plaque at the V4 segment of the left vertebral artery results in mild stenosis. The vertebral, basilar and posterior cerebral arteries are patent. Multifocal stenoses of the left posterior cerebral artery is high-grade within the P1 segment on image 386. The right posterior cerebral artery is patent. The cerebral venous sinuses are patent. No pneumothorax. Unremarkable soft tissues of the neck. Mild polypoid mucosal thickening of the left maxillary sinus. Degenerative changes of the cervical spine. IMPRESSION: 1. No acute intracranial abnormality. 2. 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 3. Atherosclerotic vascular disease without additional high-grade stenosis, aneurysm, dissection or proximal branch occlusion. ACT 112: Negative or not required by law. The above report was generated using voice recognition software. It may contain grammatical, syntax or spelling errors. Electronically signed by: Bebeto Morelos M.D. 02/15/2022 6:[address] 02/15/22 05:42 CT cervical spine wo con CT DOSE: 910.56 mGy.cm CLINICAL HISTORY: 71 years-old Male with syncope, possibly hit head; eval for cervical fx. Acute head and neck injury status post fall COMPARISON: Head CT of same day TECHNIQUE: Multiple axial CT images of the cervical spine were obtained without contrast. A dose lowering technique was utilized adhering to the principles of ALARA. FINDINGS: Multilevel there is moderate multilevel intervertebral disc space narrowing with associated uncovertebral hypertrophy, posterior disc osteophyte complex formations and mild to moderate facet arthrosis. No acute fracture or subluxation. Multilevel neural foraminal narrowing. Small left mastoid effusion. No pneumothorax. No prevertebral edema. Calcified plaque of the carotid bulbs. IMPRESSION: No acute cervical spine fracture or subluxation. ACT 112: Negative or not required by law. The above report was generated using voice recognition software. It may contain grammatical, syntax or spelling errors. Electronically signed by: Bebeto Morelos M.D. 02/15/2022 7:08 AM Blood Pressure Blood Pressure Findings: Elevated blood pressure Blood Pressure Disposition: further management by hospitalist Discharge Plan Visit Data Chief Complaint: Fall Stated Complaint: Fall, R Hip Pain, Headache ED Provider: Jaja Galaviz Discharge Problem: Unwitnessed fall, H/O: stroke, Weakness Patient Disposition: Admitted As Inpatient Discharge Instructions Interventions: ED Discharge Assessment Last Done: 02/15/22 09:50
[2022-02-15 00:12] LABS: Basophils # (auto) 0.03 K/uL (0-0.2); Basophils % (auto) 0.2 %; Eosinophils # (auto) 0.06 K/uL (0-0.5); Eosinophils % (auto) 0.4 %; Hematocrit (blood only) 45.6 % (42-52); Hemoglobin 15.5 g/dL (14.0-18.0); Immature Granulocytes # (auto) 0.05 K/uL (0.00-0.02); Immature Granulocytes % (auto) 0.3 %; Lymphocytes # (auto) 1.83 K/uL (1.2-3.4); Lymphocytes % (auto) 11.4 %; Mean Corpuscular Hemoglobin 29.5 pg (25-34); Mean Corpuscular Volume 86.7 fL (80-100); Mean Platelet Volume 8.6 fL (7.4-10.4); Monocytes # (auto) 1.28 K/uL (0.11-0.59); Neutrophils # (auto) 12.82 K/uL (1.4-6.5); Neutrophils % (auto) 79.7 %; Platelet Count 315 K/uL (130-400); RDW Coefficient of Variation 13.6 % (11.5-14.5); RDW Standard Deviation 42.7 fL (36.4-46.3); Red Blood Count 5.26 M/uL (4.7-6.1); White Blood Count 16.07 K/uL (4.8-10.8)
[2022-02-15 00:40] LABS: Albumin Globulin Ratio 1.5 (0.9-2); Albumin Level 4.1 gm/dl (3.4-5.0); BUN Creatinine Ratio 11.9 (10-20); Bilirubin,Total 1.5 mg/dl (0.2-1.0); Calcium 9.5 mg/dl (8.5-10.1); Creatinine Clr Calc Pharmacy 58.1 ml/min; Est GFR (African American) 66.1 ml/min; Globulin 2.8 gm/dl (2.5-4.0); Magnesium 2.1 mg/dl (1.7-2.4); Total Protein 6.9 gm/dl (6.0-8.3)
[2022-02-15 03:34] LABS: Appearance Urine Clear (Clear); Bilirubin Urine Negative (Negative); Blood Urine Negative (Negative); Color Urine Yellow; Glucose Urine UA Negative (Negative); Ketones Urine 1+ (Negative); Leukocyte Esterase Urine Negative (Negative); Nitrite Urine Negative (Negative); Protein Urine Negative (Negative); Urobilinogen Urine Negative (Negative); pH Urine 5.5 (4.5-7.5)
--- NOTE | 2022-02-15 04:36 | History & Physical Report ---
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 Last known normal is sometime between 6:30 AM to ~6PM on 02/14. 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 Moderate, chronic, nonspecific white matter disease, including bilateral basal ganglia ophthalmic lacunar infarct." - No significant electrolyte, hematologic, urinalysis, infectious, ECG findings at this time that would otherwise explain the event - Opt to check CTA-Head and Neck, alongside CT-Cervical Spine --> Place patient into C-collar until CT-Cervical spine is evaluated - DDX: TIA, orthostatic hypotension, neurocardiogenic syncope, transient global amnesia - Admit to monitored bed - Check TTE in pursuit of further TIA/CVA work-up - Consider ASA, Plavix, high-potency statin depending on results - PT, OT consulted - Neurochecks q4h - Check A1c, lipids - Check orthostatics - Consider consultation with neurology for diagnostic expertise (2) History of hemorrhagic cerebrovascular accident (CVA) with residual deficit: Plan: - Per patient's SO, L-sided hemorrhagic CVA in 2008 that was treated/evaluated at [facility] [place] - Patient with known history of L-sided hemorrhagic stroke in 2008 with residual R-sided deficits (RUE/RLE) - Does not currently follow with Neurology -- would recommend establishing as outpatient - Further exploration into mental health will be required while inpatient/as outpatient given reports of depressed mood, persistent deficits - See past note in 5.x files from Dr. Hall, dated 03/31/07 (3) Hypertension: Plan: - History noted. 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 Last known normal is sometime between 6:30 AM to ~6PM on 02/14. History is primarily provided by patient's long-term partner, who is at the bedside. Patient tells me that sometime during the day (does not remember the time of day/what time) he was writing a check and his right arm started "going to sleep." While he normally has some deficits on the side from his previous CVA, this was different. He describes difficulty writing, more than usual, and a tingling sensation that ran down his right arm. He went to get up and he fell over. He does not remember hitting his head. His partner then found him upon returning home around 6 PM. He was fully responsive. He denies headache now. He really does not remember too much after the event. Denies any nausea or vomiting. Denies any recent illnessesno recent fever, chills, sweats, cough, issues with voiding/stooling. He denies any changes in medications. Denies issues with orthostasis. Does not regularly consume alcohol, utilize recreational drugs, or tobacco products. He lives at home with his partner. His partner does mention that he has struggled with depression like symptoms for a while. He was previously on sertraline, however developed hives after being on it so it was stopped. It has been a while since he seen his family doctor. At baseline, patient tends to be more quiet and reserved - per his partner. Following his hemorrhagic CVA in 2008, he has had persistent right-sided deficitsincluding some right upper extremity weakness (it is normal for him to have some decreased bleach maker strength, but not to the degree of the events day prior to admission) and a limp on the right side. In the emergency department, patient was found to be hemodynamically stable with normal vital signs. Labs demonstrated a white count of 16 with left shift, normal electrolytes, blood sugar 100. LFTs demonstrated elevated total bilirubin 1.5. Creatinine kinase 278. High-sensitivity troponin 7.1. TSH 2.9. UA largely unremarkable. COVID-negative. Chest x-ray without focal abnormalities, though film quality was suboptimal. CT head, stat rad: "No skull fracture, acute bleed, or acute intracranial abnormality. Moderate, chronic, nonspecific white matter disease, including bilateral basal ganglia ophthalmic lacunar infarct. " Hip x-ray, right, without any obvious evidence of fracture on my interpretationthough final read is awaiting. Allergies Allergy/AdvReac Type Severity Reaction Status Date / Time sertraline Allergy Intermediate HIVES Verified 02/15/22 06:01 Penicillins Allergy Mild HIVES Verified 12/20/19 10:24 strawberry Allergy Unknown HIVES Verified 12/20/19 10:24 Home Medications Medication Instructions Recorded Confirmed Type amlodipine 5 mg tablet 5 mg PO QAM 12/19/19 02/15/22 History benzonatate 100 mg capsule 100 mg PO TID PRN #15 cap 12/19/19 12/20/19 Rx (Karla Duarte) multivitamin 1 tab PO QAM 12/19/19 12/20/19 History pantoprazole 40 mg tablet,delayed 40 mg PO DAILY 12/19/19 02/15/22 History release simvastatin 10 mg tablet 10 mg PO QAM 12/19/19 02/15/22 History acetaminophen 500 mg tablet 500 mg PO Q6H PRN 12/20/19 12/20/19 History sertraline 50 mg tablet 50 mg PO QAM #30 tab 12/22/19 Rx Past Med/Surg History Medical History (Updated 02/15/22 @ 05:48 by Aiden Blanca MD) GERD (gastroesophageal reflux disease) No significant past medical history Surgical History No pertinent past surgical history Family History Other No pertinent family history in first degree relatives Social History Smoking Status: Never smoker Hx Alcohol Use: No Hx Substance Use: No Preferred Language: [place] Manager Electronic Required: No Beliefs That Will Affect Care: None Current Living Situation: Spouse Feels Safe at Home: Yes Assistive Devices: Oxygen - Continuous Review of Systems Review of Systems: as per HPI Physical Exam Physical Exam: General: Tired appearing 71-year-old male who is lying back in his hospital bed, relaxed upon my arrival. He makes infrequent eye contact and minimally responds to my questionsthough is fully alert and oriented when he does. No acute distress. HEENT: NCAT. No obvious bruising, lacerations, bleeding. - Eyes - Sclera are white, anicteric, and without injection. PERRL. - Mouth - MMM. No blood. Poor dentition. - Neck - supple without JVD. Cardiac: Normal rate and regular rhythm; S1 and S2 present with no murmurs, rubs, or gallops. Pulmonary: Good respiratory effort with symmetric expansion of the chest. No use of accessory muscles. Lungs were clear to auscultation bilaterally with no crackles or wheezes. Abdominal: Normoactive bowel sounds. Abdomen was soft, nondistended, and non- tender to palpation. Extremities: No hip or pelvic pain. Upper and lower extremities are warm and well perfused. No peripheral edema. Neuro: - Cranial Nerves: CN I, IX, and X - not assessed. II - PERRL. III/IV/ - EOMs WNL. No nystagmus. V - Facial sensation in tact in all three divisions; jaw opening WNL. VII - Patient is able to smile symetrically and keep eyes close against resistance. IX - Patient is able to rotate head and shrug shoulders against resistance. XI - Soft palate raises equally and appropriately while saying "ah." XII - patient is able to stick out tongue and deviate from [id number] appropriately. - Motor: UE - Finger, wrist, elbow, and shoulder strength is 4/5 on the RIGHT and 5/5 on the LEFT; RLE hip, knee, ankle strength 3/5, and 5/5 on the LLE - Sensation: UE and LE sensation to light touch is grossly intact bilaterally. Psych: Well-developed, well-nourished, appropriately dressed for occasion. Behavior is reserved and with constricted affect. Results & Data Results & Data ([facility]) Vital Signs (Past 12 Hours) Vital Signs Temp Pulse Pulse Resp BP BP Pulse Ox 02/15/22 03:00 71 16 143/88 H 92 02/15/22 02:00 74 12 138/79 94 02/15/22 01:30 58 L 18 93 02/15/22 01:05 55 L 17 146/82 H 92 02/15/22 01:03 64 18 146/82 H 93 02/15/22 00:39 96 02/15/22 00:11 74 17 126/83 95 02/14/22 23:08 36.8 C 66 20 111/65 94 Supervising Physician Co-Signing Physician Notes Patient seen and examined, chart reviewed, case discussed with Dr. Blanca and I agree with the assessment and plan as documented above Unwitnessed fall, right-sided numbness and weakness Patient afebrile, hemodynamically stable on exam Skinintact HEENTwith mucous membranes, neck supple, no C-spine tenderness Heart+ S1, S2, regular, no murmur/rub/gallops LungsCTA Abdomensoft, nontender, nondistended Extremities warm Neuropatient reports diminished sensation to light touch on right upper and lower extremity as well as feeling of clumsiness of the right hand. Strength intact Labs and images reviewed Assessment/plan Unwitnessed fallpatient with no recollection of the eventswe will obtain imaging of cervical spine, maintain c-collar in place for now Work-up for possible stroke as above to include MRI, CTA head and neck and 2D echo Remainder of plan as above Resident Activity Tracking Resident Involvement: Resident Care Provided Care Provided: Adult [facility]
[2022-02-15] MEDS ORDERED: ACETAMINOPHEN 325 MG TAB PO PRN (04:47)
[2022-02-15 05:57] LABS: Amphetamines+Metham, Urine Neg (Neg); Barbiturates, Urine Neg (Neg); Benzodiazepine, Urine Neg (Neg); Cocaine, Urine Neg (Neg); MDMA (Ecstacy), Urine Neg (Neg); Methadone, Urine Neg (Neg); Opiate, Urine Neg (Neg); Phencyclidine, Urine Neg (Neg)
[2022-02-15] MEDS ORDERED: OPTIRAY 320 125ml IV ONE (06:35)
[2022-02-15 06:36] LABS: Chol HDL Ratio 4.3 (0-5)
--- NOTE | 2022-02-15 06:44 | Billing Data ---
Date of Service February 15, 2022 Coding Level of Care Code INT OBSERVATION CARE 50M LVL 2
--- NOTE | 2022-02-15 06:55 | CT Scan Report ---
CT angio neck with con, CT angio head w con, CT head/brain wo con CLINICAL HISTORY: 71 years-old Male with R sided weakness, syncope. Acute strokelike symptoms with right-sided weakness COMPARISON STUDY: Brain MRI 06/24/2011 TECHNIQUE: Following the IV administration of 119 mL of Optiray, CT angiogram of the head and neck wa s performed from the aortic arch to the skull base. Images are reviewed in the axial, sagittal, and c oronal planes. 3-D MIPS images are created and assessed. IV contrast was administered without complic ation. Noncontrast head CT also obtained. All measurements were calculated based on NASCET criteria. A dose lowering technique was utilized adhering to the principles of ALARA. CT DOSE: 614.27 mGy.cm FINDINGS: CT HEAD: Age-related involutional changes. White matter hypodensities suggest chronic microvascular ischemic d isease. Cerebral vascular calcifications. No acute intracranial hemorrhage, midline shift, abnormal e xtra-axial collection, hydrocephalus, acute territorial infarct or intracranial mass. Chronic appeari ng lacunar infarcts of the basal ganglia. No acute calvarial fracture. Small left mastoid effusion. M inimal mucosal thickening of the paranasal sinuses. Soft tissues and orbits are unremarkable. CTA HEAD AND NECK: Three-vessel morphology of the thoracic aortic arch. There is patency of the innominate and imaged tate bclavian arteries. The common carotid arteries are patent. Atherosclerotic plaque of the carotid bulb s results in less than 50% stenosis bilaterally. The internal carotid arteries are widely patent. The middle and anterior cerebral arteries appear unremarkable. Mild multifocal luminal narrowing of the right middle cerebral artery. The left vertebral artery is dominant. Atherosclerotic plaque at the V4 segment of the left vertebral artery results in mild stenosis. The vertebral, basilar and posterior cerebral arteries are patent. Multifocal stenoses of the left posterior cerebral artery is high-grade within the P1 segment on image 386. The right posterior cerebral artery is patent. The cerebral veno us sinuses are patent. No pneumothorax. Unremarkable soft tissues of the neck. Mild polypoid mucosal thickening of the left maxillary sinus. Degenerative changes of the cervical spine. IMPRESSION: 1. No acute intracranial abnormality. 2. Focal short segment area of high-grade stenosis involves the P1 segment of the left posterior cere bral artery. 3. Atherosclerotic vascular disease without additional high-grade stenosis, aneurysm, dissection or p roximal branch occlusion. ACT 112: Negative or not required by law. The above report was generated using voice recognition software. It may contain grammatical, syntax o r spelling errors. Electronically signed by: Bebeto Morelos M.D. 02/15/2022 6:52 AM
--- NOTE | 2022-02-15 07:09 | CT Scan Report ---
CT cervical spine wo con CT DOSE: 910.56 mGy.cm CLINICAL HISTORY: 71 years-old Male with syncope, possibly hit head; eval for cervical fx. Acute hea d and neck injury status post fall COMPARISON: Head CT of same day TECHNIQUE: Multiple axial CT images of the cervical spine were obtained without contrast. A dose low ering technique was utilized adhering to the principles of ALARA. FINDINGS: Multilevel there is moderate multilevel intervertebral disc space narrowing with associated uncovertebral hypertrophy, posterior disc osteophyte complex formations and mild to moderate facet a rthrosis. No acute fracture or subluxation. Multilevel neural foraminal narrowing. Small left mastoid effusion. No pneumothorax. No prevertebral edema. Calcified plaque of the carotid bulbs. IMPRESSION: No acute cervical spine fracture or subluxation. ACT 112: Negative or not required by law. The above report was generated using voice recognition software. It may contain grammatical, syntax o r spelling errors. Electronically signed by: Bebeto Morelos M.D. 02/15/2022 7:08 AM
--- NOTE | 2022-02-15 07:20 | XRay Report ---
SINGLE VIEW CHEST CLINICAL HISTORY: Fall. Generalized weakness. FINDINGS: An AP, portable, upright chest radiograph is compared to study dated 12/20/2019. The heart is enlarged noting atherosclerotic calcification of the thoracic aorta. There is prominence of the pulm onary vasculature. Chronic interstitial thickening is similar to previous. Atelectasis is noted at th e lung bases. The lungs and pleural spaces are otherwise clear. No pneumothorax is seen. The skeletal structures are osteopenic. The bony thorax is grossly intact. IMPRESSION: 1. Cardiomegaly with prominence of the pulmonary vasculature. Correlate clinically for evidence of mi ld congestive failure. 2. No airspace consolidation or large pleural effusion is identified. ACT 112: Negative or not required by law. Electronically signed by: Moses Vega M.D. 02/15/2022 7:18 AM
--- NOTE | 2022-02-15 07:30 | Magnetic Resonance Report ---
MRI OF THE BRAIN WITHOUT IV CONTRAST CLINICAL HISTORY: Fall. Stroke like symptoms. COMPARISON STUDY: CT of the brain dated 02/15/2022. TECHNIQUE: MRI of the brain was performed utilizing various T1 and T2-weighted sequences in the axial , sagittal, and coronal planes. IV contrast was not administered for this examination. FINDINGS: Brain parenchyma: There is a 13 mm focus of restricted diffusion in the left thalamus consistent with an acute to subacute lacunar infarct. Additional foci of restricted diffusion are present in the lef t occipital lobe. A punctate focus of restricted diffusion is seen in the left henson radiata. Hemosi cb deposition in the right cerebellar hemisphere suggests remote hemorrhage. No acute hemorrhage i s identified. There is no mass effect. There is age-related involutional change noting advanced confl uent subcortical and periventricular intrahepatic disease. Chronic lacunar infarcts are noted in the right thalamus, the left centrum semiovale, and the right caudate head. No extra-axial fluid collecti on is seen. The cerebellar tonsils are normal in configuration. Ventricles, sulci, and cisterns: Prominent secondary to involutional change. Pituitary and sella: Unremarkable. Intracranial vasculature: Normal flow voids are maintained at the skull base. Orbits: The bony orbits are grossly intact. Orbital contents are normal in appearance. Sinuses and mastoids: There is mild mucosal thickening within the maxillary antra. A 14 mm retention cyst is seen on the left. Mild mucosal thickening is also noted in the sphenoid sinuses. There is a l eft mastoid effusion. Calvarium: Unremarkable. Cervical cord: Partially visualized cervical spinal cord is normal in morphology and signal intensity . IMPRESSION: 1. There is a 13 mm focus of restricted diffusion centered in the left thalamus consistent with an ac marshall to subacute lacunar infarct. 2. Additional foci of restricted diffusion are identified in the left occipital lobe and in the left henson radiata. These are also consistent with acute to subacute ischemia. 3. There is no evidence of acute hemorrhage or mass effect. 4. 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 Electronically signed by: Moses Vega M.D. 02/15/2022 7:28 AM
--- NOTE | 2022-02-15 08:03 | XRay Report ---
XR hip RT min 2V CLINICAL HISTORY: Right hip pain following fall. COMPARISON: None FINDINGS: Alignment of the right hip is anatomic. No acute fracture. No osseous lesion is noted. No evidence for avascular necrosis of the right femoral head. No acute fracture within visualized portio ns of the pelvis. IMPRESSION: No acute fracture or dislocation within the right hip. ACT 112: Negative or not required by law. Electronically signed by: Drake Ryan M.D. 02/15/2022 8:01 AM
[2022-02-15 09:02] LABS: Estimated Average Glucose 120 mg/dl; Hemoglobin A1C 5.8 % (4.5-5.6)
[2022-02-15] MEDS ORDERED: PHARMACIST DISCHARGE MED REC CONSULT PRN (11:10)
--- NOTE | 2022-02-15 11:10 | Communication Note ---
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 Due to time to presentation tPA was not indicated. CT without acute findings, follow-up MRI with acute left thalamic lacunar infarct, left occipital infarct. CTA does show left SHELL FISHERMAN high-grade stenosis. Normal sinus rhythm on EKG review. Echo is pending. Patient has not been on an antiplatelet agent previously, reports he was never put on one due to concerns from his prior bleeding. He does have hypertension controlled with amlodipine. On exam patient does have full strength in left upper and left lower extremity. Right hip flexion 3/5, is unable to raise leg to antigravity. Right ankle dorsiflexion 4/5, plantarflexion 4/5 right obstetrics nurse strength, elbow flexion/extensio n 4+/5, dysmetria is noted on finger-nose testing with over extension. Sensation to soft touch intact in hands and feet qualitatively equal on both sides per patient. Pupils equal and reactive to light. Vision is intact and without nystagmus. No facial asymmetry. Acute CVA, left thalamic lacunar infarct and left occipital infarct MRI with acute/subacute left lamina lacunar infarct and left occipital infarct. Chronic right cerebellar changes from prior hemorrhagic stroke CTA: Left SHELL FISHERMAN P1 high-grade stenosis CT C-spine: No acute finding/fracture LDL 119, cholesterol 183 EKG NSR on review, no A. fib Echo pending PT/OT pending Would upgrade statin to high potency, atorvastatin 40-80 mg given recurrent stroke and LDL greater than 100. Previously on simvastatin 10 mg. Discussed with neurology. Recommend low-dose aspirin for stroke prevention, patient does have a history of hemorrhagic conversion although this is old in 2004 and has periods to recurrent stroke at this time. Continue secondary risk factor management Former smoker Patient is a somewhat poor historian of his medications, is coming in. Pending final med review and adjustments after she brings season for Hypertension Continue amlodipine 5 mg p.o. every morning GERD/history of GIB Protonix 40 mg daily No signs of bleeding on exam Hyperlipidemia Statin as noted DVT prophylaxis: SCDs Diet: Pending speech eval Disposition: Medical/surgical with telemetry CODE STATUS: Full code
--- NOTE | 2022-02-15 13:45 | XCELERA ---
[id number]
[2022-02-16 06:49] LABS: Basophils # (auto) 0.03 K/uL (0-0.2); Basophils % (auto) 0.3 %; Eosinophils # (auto) 0.54 K/uL (0-0.5); Eosinophils % (auto) 4.7 %; Hematocrit (blood only) 44.1 % (42-52); Hemoglobin 14.6 g/dL (14.0-18.0); Immature Granulocytes # (auto) 0.03 K/uL (0.00-0.02); Immature Granulocytes % (auto) 0.3 %; Lymphocytes # (auto) 2.51 K/uL (1.2-3.4); Lymphocytes % (auto) 21.9 %; Mean Corpuscular Hemoglobin 29.3 pg (25-34); Mean Corpuscular Hgb Conc 33.1 g/dL (32-36); Mean Corpuscular Volume 88.4 fL (80-100); Mean Platelet Volume 8.9 fL (7.4-10.4); Monocytes # (auto) 1.05 K/uL (0.11-0.59); Monocytes % (auto) 9.2 %; Neutrophils # (auto) 7.29 K/uL (1.4-6.5); Neutrophils % (auto) 63.6 %; Platelet Count 316 K/uL (130-400); RDW Coefficient of Variation 13.9 % (11.5-14.5); Red Blood Count 4.99 M/uL (4.7-6.1); White Blood Count 11.45 K/uL (4.8-10.8)
[2022-02-16 07:10] LABS: Albumin Globulin Ratio 1.3 (0.9-2); Albumin Level 3.6 gm/dl (3.4-5.0); BUN Creatinine Ratio 13.9 (10-20); Bilirubin Direct 0.2 mg/dl (0-0.2); Bilirubin,Total 1.3 mg/dl (0.2-1.0); Calcium 8.5 mg/dl (8.5-10.1); Creatinine Clr Calc Pharmacy 56.4 ml/min; Est GFR (African American) 68.7 ml/min; Est GFR (Non-African American) 59.3 ml/min; Globulin 2.7 gm/dl (2.5-4.0); Total Protein 6.3 gm/dl (6.0-8.3)
[2022-02-16] MEDS: ASPIRIN 81 MG ECTAB PO SCH (08:20)
[2022-02-16] MEDS: ATORVASTATIN 40 MG TAB PO SCH (08:21)
--- NOTE | 2022-02-16 09:08 | Neurology Consultation ---
Date of Consultation February 16, 2022 Assessment & Plan (1) Stroke: (2) History of hemorrhagic cerebrovascular accident (CVA) with residual deficit: Acute to subacute left thalamic, left occipital, and left henson radiata infarcts presenting with a right hemiparesis, leg greater than arm and unw itnessed fall. Patient's weakness is persistent and of moderate severity. He has a history of a remote right cerebellar hemorrhage. Stroke risk factors for this patient include hypertension and hyperlipidemia. He is a former smoker. Patient can safely take antiplatelet medication. Would recommend aspirin 81 mg/day for secondary stroke risk reduction. Patient's statin therapy has been upgraded to high intensity atorvastatin, 80 mg/day, I agree with this change. Permissive hypertension appropriate acutely, systolic blood pressure 140 to 160 mmHg. Patient will need additional follow-up with his PCP for ongoing monitoring of his lipids and hypertension. Would recommend 30-day mobile cardiac outpatient telemetry. His CT angiography of the head and neck did not reveal any lesions that would be amenable to specific intervention. Consultations with PT/OT/speech therapy. No further immediate recommendations. History of Present Illness Reason for Consultation: Stroke Requesting Physician: Felton Potts MD Attending Physician: Jan De La Torre MD History of Present Illness The patient is a 71-year-old male with a chief complaint of right-sided weakness . He had apparently fallen as a result of right-sided weakness and was found by his partner sometime afterwards. He has very poor recollection for the unwitnessed episode. Past medical history is notable for stroke including a chronic right cerebellar hemorrhage. His right-sided weakness has persisted. He denies headache, vision disturbance, or significant change in speech or swallowing. He does recall having some associated paresthesias to the right arm prior to the event. He does not have a known history of seizures although he has had some chronic right-sided weakness due to his previous stroke. Allergies Allergy/AdvReac Type Severity Reaction Status Date / Time sertraline Allergy Intermediate HIVES Verified 02/15/22 06:01 Penicillins Allergy Mild HIVES Verified 12/20/19 10:24 strawberry Allergy Unknown HIVES Verified 12/20/19 10:24 Home Medications Medication Instructions Recorded Confirmed Type amlodipine 5 mg tablet 5 mg PO QAM 12/19/19 02/15/22 History benzonatate 100 mg capsule 100 mg PO TID PRN #15 cap 12/19/19 12/20/19 Rx (Karla Duarte) multivitamin 1 tab PO QAM 12/19/19 12/20/19 History pantoprazole 40 mg tablet,delayed 40 mg PO DAILY 12/19/19 02/15/22 History release simvastatin 10 mg tablet 10 mg PO QAM 12/19/19 02/15/22 History acetaminophen 500 mg tablet 500 mg PO Q6H PRN 12/20/19 12/20/19 History sertraline 50 mg tablet 50 mg PO QAM #30 tab 12/22/19 Rx Patient History Medical History (Updated 02/16/22 @ 09:01 by Lino Hall MD) GERD (gastroesophageal reflux disease) No significant past medical history Surgical History No pertinent past surgical history Family History Other No pertinent family history in first degree relatives Social History Smoking Status: Former smoker Second Hand Exposure: No; Hx Alcohol Use: No Hx Substance Use: No Preferred Language: Sammarinese Bridge Manager Required: No Beliefs That Will Affect Care: None Current Living Situation: Significant Other Feels Safe at Home: Yes Assistive Devices: None Review of Systems Constitutional: no fever and no chills Eyes: no blind spots and no diplopia Ear, Nose, Mouth, Throat: no ear pain and no hearing loss Respiratory: no cough and no dyspnea Cardiovascular: no chest pain and no palpitations Gastrointestinal: no constipation and no diarrhea/loose stools Genitourinary: no urinary incontinence or no urinary urgency Musculoskeletal: + muscle weakness; no muscle atrophy Integumentary: no rash and no lesions Neurologic: as per Subjective / HPI, + localized weakness and + paresthesia; no headache(s) Psychiatric: no behavioral changes, no depression, no abnormal sleep pattern and no anxiety Hematologic / Lymphatic: no easy bruising and no lymphadenopathy Exam (Neuro) Constitutional: well developed and well nourished; no acute distress Eyes: normal visual weeks by confrontation, PERRL, normal accommodation and EOM intact bilaterally; no fundoscopic abnormality, no nystagmus and no papilledema Cardiovascular: Vessels: normal carotid upstroke; no carotid bruit Neurologic: Oriented to:: Person, Place and Time Memory: Short Term Intact and Remote Intact Attention: Span Intact; negative Concentration Intact Language: Naming Objects and Repeating Phrases Speech Fluency: negative Dysarthria Speech Aphasia: negative Aphasia Fund of Knowledge: Past History and Vocabulary; negative Current Events Cranial Nerves: Normal II (Visual weeks full to confrontation, visual acuity normal), III, IV, (Pupils equal round reactive to light and accommodation, eye movements normal), V (Facial sensation intact), VII (There is no facial droop or weakness), VIII (Hearing intact), IX, X (Palate elevates to midline), XI (Shoulder shrug intact) and XII (Tongue protrudes to midline) Motor Strength: Pronator Drift Laterality: Right and Hemiparesis Laterality: Right; negative Normal Lower Extremities or Normal Upper Extremities Motor Tone: Normal Lower Extremities and Normal Upper Extremities Muscle Bulk/Involuntary Movements: No Involuntary Movements; negative Muscle Atrophy Sensation: negative Light Touch Intact, Pain/Temperature Intact, Vibration Intact or Proprioception Intact Coordination: Dysdiadochokinesia, Finger-Nose Abnormal Laterality: Right and Heel-Byrd Abnormal Laterality: Right Deep Tendon Reflexes: Rt Triceps: 2+, Lt Triceps: 2+, Rt Biceps: 2+, Lt Biceps: 2+, Rt Brachioradialis: 2+, Lt Brachioradialis: 2+, Rt Patellar: 2+, Lt Patellar: 2+, Rt Ankle: 1+ and Lt Ankle: 1+ Special Tests: Babinski Present (right) Details: Gait could not be tested in the context of patient's current neurological status. Patient exhibits a moderate right hemiparesis, leg greater than arm. He has an associated right upgoing toe but otherwise deep tendon reflexes are re latively normal to diminished throughout. He does not have an aphasia. His speech is nondysarthric. He is somewhat inattentive. Results & Data ([facility]) Vital Signs (Past 12 Hours) Vital Signs Temp Pulse Pulse Resp BP Pulse Ox 02/16/22 06:57 36.6 C 65 20 155/79 H 95 02/16/22 03:25 37.1 C 63 20 146/85 H 96 02/16/22 00:27 62 02/15/22 23:00 37.0 C 65 20 158/94 H 94 Laboratory Results WBC 11.45, hemoglobin 14.6, hematocrit 44.1, MCV 88.4, platelet count 316, sodium 138, potassium 4.0, BUN 17, creatinine 1.22, glucose 94, magnesium 1.3, AST 15, ALT 7, total CK3 33, triglycerides 105, cholesterol 183, LDL 119, VLDL 2 1, HDL 43, vitamin B12 278, prolactin less than 0.05, TSH 2.941. Diagnostic Findings CT angiography of the head and neck revealed a focal short segment area of high- grade stenosis involving the P1 segment of the left [employer]IC. There was diffuse atherosclerotic disease without additional high-grade stenoses, aneurysm, dissection, or proximal branch occlusion. A brain MRI revealed a 13 mm focus of restricted diffusion within the left thalamus as well as additional foci of restricted diffusion within the left occipital lobe and left henson radiata. T hese findings consistent with acute to subacute infarcts. There was evidence of a chronic right cerebellar hemorrhage. No evidence of acute hemorrhage. There were chronic lacunar infarcts as well, within the right thalamus, left centrum semiovale, right caudate head. I reviewed the images as well as the radiologist interpretation of these tests I was able to appreciate the above findings. An echocardiogram was negative for cardioembolic source. Left ventricular systolic function normal. There was grade 1 diastolic dysfunction. No evidence of interatrial shunt. Left atrial size normal. Electrocardiogram revealed a normal sinus rhythm, 66 bpm. Coding Level of Care Code 42893 Initial In Care Lvl 3 Diagnoses Stroke I63.9 History of hemorrhagic cerebrovascular accident (CVA) with residual deficit I69.30
--- NOTE | 2022-02-16 15:30 | Electrocardiogram Report ---
Test Reason : Blood Pressure : / mmHG Vent. Rate : 062 BPM Atrial Rate : 062 BPM P-R Int : 154 ms QRS Dur : 078 ms QT Int : 400 ms P-R-T Axes : 028 -31 011 degrees QTc Int : 406 ms Normal sinus rhythm Left axis deviation Abnormal ECG When compared with ECG of 20-DEC-2019 09:03, Criteria for Inferior infarct are no longer Present Confirmed by Amandeep Garcia ([id number]) on 02/16/2022 3:30:10 PM Referred By: REFERRED SELF Confirmed By:Amandeep Garcia
--- NOTE | 2022-02-16 17:37 | Hospitalist Progress Note ---
Date of Service February 16, 2022 Assessment & Plan (1) Unwitnessed fall: Plan: Acute lacunar infarctions/CVA, neurology recommends aspirin and statin Unwitnessed Fall / Stroke-like Symptoms / Anterograde Amnesia - Patient with known history of L-sided hemorrhagic stroke in 2008 with residual R-sided deficits (RUE/RLE) - On 02/14, patient reported feeling R arm/hand go "" with increased weakness (from baseline) and ?RLE weakness that resulted in a fall -- unfortunately, he has anterograde amnesia until around the time his SO returned home --> While no obvious head lacerations/contusions, etc., cannot rule-oublunt force head trauma -Brain MRI 02/15/2022 shows acute to subacute lacunar infarct in the left thalamus also additional areas in the left occipital lobe and left henson radiata no acute hemorrhage or mass-effect Previous imaging of the brain with history of R cerebellar hemorrhage in May 2006 with persistent RIGHT sided physical and emotional deficits -Echocardiogram 02/15/2022 shows no cardiac source of emboli (2) History of hemorrhagic cerebrovascular accident (CVA) with residual deficit: Plan: - Per patient's SO, L-sided hemorrhagic CVA in 2008 that was treated/evaluated at [facility] , with residual R-sided deficits (RUE/RLE) (3) Hypertension: Plan: - allowing permissive hypertension in the raúl-infarct. (4) Hyperlipidemia: Plan: - high-potency statin pending above w/u, if e/o ASCVD Plan: Code: Full code Diet: Heart healthy Dispo: MS/Tele PPX: SCDs (h/o hemorrhagic stroke) Disposition may require rehab Admission and Anticipated Discharge Date Admission Date: February 16, 2022 Subjective pt is pleasant no complaints has some word finding issues and some slurring of words at times Reportedly having no issues with swallowing or with coughing with eating. Has some dysmetria with his right hand Review of Systems Review of Systems: Mild distress and fatigue no headache, no visual changes no speech or swallowing issues does have slurring of speech and word finding issues no chest pain, pressure or palpitations no shortness of breath, cough or wheezes no abdominal pain, nausea or vomiting, diarrhea or constipation no dysuria, hematuria or frequency no focal joint pain or swelling no back pain, CVA tenderness or radicular pain no bruising, bleeding or rashes no focal signs of weakness or numbness or altered sensation does have dysmetria to his right arm no complaints of anxiety or depression.. Results & Data Results & Data ([facility]) Vital Signs (Past 12 Hours) Vital Signs Temp Pulse Resp BP Pulse Ox 02/16/22 14:53 98.8 F 79 18 125/71 94 02/16/22 11:36 99.0 F 82 18 129/80 92 02/16/22 06:57 97.9 F 65 20 155/79 H 95 PG Care Time/CCT Total # of Minutes Spent Total Time Spent with Patient: Total time spent is greater than 50% in coordination of care (as documented) at patient's floor/unit and/or counseling patient: Coding Level of Care Code 49094 Subseq Hosp Care Lvl 3 Diagnoses Unwitnessed fall R29.6 History of hemorrhagic cerebrovascular accident (CVA) with residual deficit I69.30 Hypertension I10 Hyperlipidemia E78.5
[2022-02-17 06:45] LABS: Basophils # (auto) 0.02 K/uL (0-0.2); Basophils % (auto) 0.2 %; Eosinophils # (auto) 0.64 K/uL (0-0.5); Eosinophils % (auto) 6.5 %; Hematocrit (blood only) 42.6 % (42-52); Hemoglobin 14.1 g/dL (14.0-18.0); Immature Granulocytes # (auto) 0.02 K/uL (0.00-0.02); Immature Granulocytes % (auto) 0.2 %; Lymphocytes # (auto) 2.67 K/uL (1.2-3.4); Mean Corpuscular Hemoglobin 29.4 pg (25-34); Mean Corpuscular Hgb Conc 33.1 g/dL (32-36); Mean Corpuscular Volume 88.8 fL (80-100); Mean Platelet Volume 8.9 fL (7.4-10.4); Monocytes # (auto) 0.98 K/uL (0.11-0.59); Monocytes % (auto) 9.9 %; Neutrophils # (auto) 5.55 K/uL (1.4-6.5); Neutrophils % (auto) 56.2 %; Platelet Count 314 K/uL (130-400); RDW Coefficient of Variation 13.7 % (11.5-14.5); White Blood Count 9.88 K/uL (4.8-10.8)
[2022-02-17 07:10] LABS: BUN Creatinine Ratio 13.3 (10-20); Calcium 8.4 mg/dl (8.5-10.1); Creatinine Clr Calc Pharmacy 60.9 ml/min; Est GFR (African American) 75.4 ml/min; Potassium 3.8 mmol/L (3.5-5.1)
[2022-02-17] MEDS: ASPIRIN 81 MG ECTAB PO SCH (08:41)
[2022-02-17] MEDS: ATORVASTATIN 40 MG TAB PO SCH (08:41)
--- NOTE | 2022-02-17 08:56 | Electrocardiogram Report ---
Test Reason : Blood Pressure : / mmHG Vent. Rate : 066 BPM Atrial Rate : 066 BPM P-R Int : 158 ms QRS Dur : 080 ms QT Int : 404 ms P-R-T Axes : 020 -28 -11 degrees QTc Int : 423 ms Normal sinus rhythm Possible Anterior infarct , age undetermined Abnormal ECG When compared with ECG of 14-FEB-2022 23:22, (unconfirmed) No significant change was found Confirmed by Amandeep Garcia ([id number]) on 02/17/2022 8:55:56 AM Referred By: REFERRED SELF Confirmed By:Amandeep Garcia
--- NOTE | 2022-02-17 15:02 | Hospitalist Progress Note ---
Date of Service February 17, 2022 Assessment & Plan (1) Unwitnessed fall: Plan: Acute lacunar infarctions/CVA, neurology recommends aspirin and statin Unwitnessed Fall / Stroke-like Symptoms / Anterograde Amnesia - Patient with known history of L-sided hemorrhagic stroke in 2008 with residual R-sided deficits (RUE/RLE) - On 02/14, patient reported feeling R arm/hand go "" with increased weakness (from baseline) and ?RLE weakness that resulted in a fall -- unfortunately, he has anterograde amnesia until around the time his SO returned home --> While no obvious head lacerations/contusions, etc., cannot rule-oublunt force head trauma -Brain MRI 02/15/2022 shows acute to subacute lacunar infarct in the left thalamus also additional areas in the left occipital lobe and left henson radiata no acute hemorrhage or mass-effect Previous imaging of the brain with history of R cerebellar hemorrhage in May 2006 with persistent RIGHT sided physical and emotional deficits -Echocardiogram 02/15/2022 shows no cardiac source of emboli (2) History of hemorrhagic cerebrovascular accident (CVA) with residual deficit: Plan: - Per patient's SO, L-sided hemorrhagic CVA in 2008 that was treated/evaluated at [facility] , with residual R-sided deficits (RUE/RLE) (3) Hypertension: Plan: - allowing permissive hypertension in the raúl-infarct. (4) Hyperlipidemia: Plan: - high-potency statin Plan: Code: Full code Diet: Heart healthy Dispo: MS/Tele PPX: SCDs (h/o hemorrhagic stroke) Disposition may require rehab Admission and Anticipated Discharge Date Admission Date: February 16, 2022 Subjective pt is pleasant no complaints, we did discuss rehab he agrees to [facility] but wants wifes validation continues with word finding issues and some slurring of words at times Reportedly continues without issues with swallowing or with coughing with eati ng. Has dysmetria with his right hand Review of Systems Review of Systems: Mild distress and fatigue no headache, no visual changes no speech or swallowing issues does have slurring of speech and word finding issues no chest pain, pressure or palpitations no shortness of breath, cough or wheezes no abdominal pain, nausea or vomiting, diarrhea or constipation no dysuria, hematuria or frequency no focal joint pain or swelling no back pain, CVA tenderness or radicular pain no bruising, bleeding or rashes no focal signs of weakness or numbness or altered sensation does have dysmetria to his right arm no complaints of anxiety or depression.. Physical Exam Physical Exam: The patient appeared well nourished and normally developed. Vital signs as documented. Head exam is normocephalic atraumatic Neck is without JVD, thyromegaly, or carotid bruits. Lungs are clear to auscultation, no focal loss of breath sounds Cardiac exam, Rhythm is regular.. No murmurs, rubs or gallops. Abdominal exam reveals normal bowel sounds, soft non tender, no masses Extremities are nonedematous and both pedal pulses are present Neurologic exam is alert and oriented, right hand weakness and dysmetria, some speech issues Skin is without bruises or rashes Psychologically is without concerns for anxiety or depression.. Results & Data Results & Data ([facility]) Vital Signs (Past 12 Hours) Vital Signs Temp Pulse Pulse Resp BP Pulse Ox 02/17/22 14:40 98.4 F 68 20 125/75 94 02/17/22 10:50 97.3 F L 76 20 136/81 94 02/17/22 07:00 97.7 F 60 56 L 18 148/79 H 95 PG Care Time/CCT Total # of Minutes Spent Total Time Spent with Patient: Total time spent is greater than 50% in coordination of care (as documented) at patient's floor/unit and/or counseling patient: Coding Level of Care Code 89260 Subseq Hosp Care Lvl 2 Diagnoses Unwitnessed fall R29.6 History of hemorrhagic cerebrovascular accident (CVA) with residual deficit I69.30 Hypertension I10 Hyperlipidemia E78.5
[2022-02-18 07:32] LABS: Basophils # (auto) 0.04 K/uL (0-0.2); Basophils % (auto) 0.5 %; Eosinophils # (auto) 0.58 K/uL (0-0.5); Eosinophils % (auto) 6.9 %; Hematocrit (blood only) 41.5 % (42-52); Hemoglobin 13.7 g/dL (14.0-18.0); Immature Granulocytes # (auto) 0.01 K/uL (0.00-0.02); Immature Granulocytes % (auto) 0.1 %; Lymphocytes # (auto) 2.06 K/uL (1.2-3.4); Lymphocytes % (auto) 24.3 %; Mean Corpuscular Hemoglobin 28.7 pg (25-34); Mean Platelet Volume 8.8 fL (7.4-10.4); Monocytes # (auto) 0.87 K/uL (0.11-0.59); Monocytes % (auto) 10.3 %; Neutrophils % (auto) 57.9 %; Platelet Count 317 K/uL (130-400); RDW Coefficient of Variation 13.7 % (11.5-14.5); RDW Standard Deviation 43.6 fL (36.4-46.3); Red Blood Count 4.77 M/uL (4.7-6.1); White Blood Count 8.46 K/uL (4.8-10.8)
[2022-02-18 08:03] LABS: BUN Creatinine Ratio 16.2 (10-20); Calcium 8.5 mg/dl (8.5-10.1); Creatinine Clr Calc Pharmacy 65.6 ml/min; Est GFR (African American) 82.4 ml/min; Est GFR (Non-African American) 71.1 ml/min; Potassium 3.9 mmol/L (3.5-5.1)
[2022-02-18] MEDS: ASPIRIN 81 MG ECTAB PO SCH (08:57)
[2022-02-18] MEDS: ATORVASTATIN 40 MG TAB PO SCH (08:57)
--- NOTE | 2022-02-18 13:46 | Hospitalist Progress Note ---
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 (RUE/RLE) - On 02/14, patient reported feeling R arm/hand go "" with increased weakness (from baseline) and ?RLE weakness that resulted in a fall -- unfortunately, he has anterograde amnesia until around the time his SO returned home --> While no obvious head lacerations/contusions, etc., cannot rule -Brain MRI 02/15/2022 shows acute to subacute lacunar infarct in the left thalamus also additional areas in the left occipital lobe and left henson radiata no acute hemorrhage or mass-effect Previous imaging of the brain with 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 (4) Hyperlipidemia: Plan: - high-potency statin Plan: Code: Full code Diet: Heart healthy Dispo: MS/Tele PPX: SCDs (h/o hemorrhagic stroke) Disposition may require rehab Admission and Anticipated Discharge Date Admission Date: February 16, 2022 Subjective pt is pleasant no complaints, we did discuss rehab he agrees to [facility] but wants wifes validation continues with word finding issues and some slurring of words at times Reportedly continues without issues with swallowing or with coughing with eating. Has dysmetria with his right hand but is improving Review of Systems Review of Systems: Mild distress and fatigue no headache, no visual changes no speech or swallowing issues does have slurring of speech and word finding issues no chest pain, pressure or palpitations no shortness of breath, cough or wheezes no abdominal pain, nausea or vomiting, diarrhea or constipation no dysuria, hematuria or frequency no focal joint pain or swelling no back pain, CVA tenderness or radicular pain no bruising, bleeding or rashes no focal signs of weakness or numbness or altered sensation does have dysmetria to his right arm no complaints of anxiety or depression.. Physical Exam Physical Exam: The patient appeared well nourished and normally developed. Vital signs as documented. Head exam is normocephalic atraumatic Neck is without JVD, thyromegaly, or carotid bruits. Lungs are clear to auscultation, no focal loss of breath sounds Cardiac exam, Rhythm is regular.. No murmurs, rubs or gallops. Abdominal exam reveals normal bowel sounds, soft non tender, no masses Extremities are nonedematous and both pedal pulses are present Neurologic exam is alert and oriented, right hand weakness and dysmetria, some speech issues Skin is without bruises or rashes Psychologically is without concerns for anxiety or depression.. Results & Data Results & Data ([facility]) Vital Signs (Past 12 Hours) Vital Signs Temp Pulse Resp BP Pulse Ox 02/18/22 11:10 97.7 F 72 18 126/78 95 02/18/22 07:30 97.7 F 72 18 148/75 H 95 PG Care Time/CCT Total # of Minutes Spent Total Time Spent with Patient: Total time spent is greater than 50% in coordination of care (as documented) at patient's floor/unit and/or counseling patient: Coding Level of Care Code 31391 Subseq Hosp Care Lvl 2 Diagnoses Unwitnessed fall R29.6 History of hemorrhagic cerebrovascular accident (CVA) with residual deficit I69.30 Hypertension I10 Hyperlipidemia E78.5
[2022-02-19] MEDS: ATORVASTATIN 40 MG TAB PO SCH (08:51)
[2022-02-19] MEDS: ASPIRIN 81 MG ECTAB PO SCH (08:51)
--- NOTE | 2022-02-19 11:49 | Hospitalist Progress Note ---
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 (4) Hyperlipidemia: Plan: - high-potency statin Plan: Code: Full code Diet: Heart healthy Dispo: MS/Tele PPX: SCDs (h/o hemorrhagic stroke) Disposition may require rehab Admission and Anticipated Discharge Date Admission Date: February 16, 2022 Subjective pt is pleasant no complaints, we did discuss rehab he agrees to [facility], need for rehab reinforced by PT improving speech Reportedly continues without issues with swallowing or with coughing with ea ting. Has dysmetria with his right hand but is improving Review of Systems Review of Systems: Mild distress and fatigue no headache, no visual changes no speech or swallowing issues no chest pain, pressure or palpitations no shortness of breath, cough or wheezes no abdominal pain, nausea or vomiting, diarrhea or constipation no dysuria, hematuria or frequency no focal joint pain or swelling no back pain, CVA tenderness or radicular pain no bruising, bleeding or rashes no focal signs of weakness or numbness or altered sensation does have dysmetria to his right arm no complaints of anxiety or depression.. Physical Exam Physical Exam: The patient appeared well nourished and normally developed. Vital signs as documented. Head exam is normocephalic atraumatic Neck is without JVD, thyromegaly, or carotid bruits. Lungs are clear to auscultation, no focal loss of breath sounds Cardiac exam, Rhythm is regular.. No murmurs, rubs or gallops. Abdominal exam reveals normal bowel sounds, soft non tender, no masses Extremities are nonedematous and both pedal pulses are present Neurologic exam is alert and oriented, right hand weakness and dysmetria Skin is without bruises or rashes Psychologically is without concerns for anxiety or depression.. Results & Data Results & [facility] ([facility]) Vital Signs (Past 12 Hours) Vital Signs Temp Pulse Pulse Resp BP Pulse Ox 02/19/22 07:05 97.7 F 83 18 147/85 H 94 02/19/22 03:27 98.2 F 63 18 122/80 92 02/19/22 00:35 58 L PG Care Time/CCT Total # of Minutes Spent Total Time Spent with Patient: Total time spent is greater than 50% in coordination of care (as documented) at patient's floor/unit and/or counseling patient: Coding Level of Care Code 12776 Subseq Hosp Care Lvl 2 Diagnoses Unwitnessed fall R29.6 History of hemorrhagic cerebrovascular accident (CVA) with residual deficit I69.30 Hypertension I10 Hyperlipidemia E78.5
--- NOTE | 2022-02-20 07:57 | Hospitalist Progress Note ---
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 Has dysmetria with his right hand but is improving on 02/19 was able to ambulate with CG and RW Review of Systems 2 Review of Systems: Mild distress and fatigue no headache, no visual changes no speech or swallowing issues no chest pain, pressure or palpitations no shortness of breath, cough or wheezes no abdominal pain, nausea or vomiting, diarrhea or constipation no dysuria, hematuria or frequency no focal joint pain or swelling no back pain, CVA tenderness or radicular pain no bruising, bleeding or rashes no focal signs of weakness or numbness or altered sensation no complaints of anxiety or depression.. Physical Exam Physical Exam: The patient appeared well nourished and normally developed. Vital signs as documented. Head exam is normocephalic atraumatic Neck is without JVD, thyromegaly, or carotid bruits. Lungs are clear to auscultation, no focal loss of breath sounds Cardiac exam, Rhythm is regular.. No murmurs, rubs or gallops. Abdominal exam reveals normal bowel sounds, soft non tender, no masses Extremities are nonedematous and both pedal pulses are present Neurologic exam is alert and oriented, right hand weakness and dysmetria Skin is without bruises or rashes Psychologically is without concerns for anxiety or depression.. Results & Data Results & Data ([facility]) Vital Signs (Past 12 Hours) Vital Signs Temp Pulse Resp BP Pulse Ox 02/20/22 07:28 97.5 F L 63 16 134/80 96 02/19/22 23:42 97.9 F 80 18 130/78 92 PG Care Time/CCT Total # of Minutes Spent Total Time Spent with Patient: Total time spent is greater than 50% in coordination of care (as documented) at patient's floor/unit and/or counseling patient: Coding Level of Care Code 99500 Subseq Hosp Care Lvl 2 Diagnoses Unwitnessed fall R29.6 History of hemorrhagic cerebrovascular accident (CVA) with residual deficit I69.30 Hypertension I10 Hyperlipidemia E78.5
[2022-02-20] MEDS: ATORVASTATIN 40 MG TAB PO SCH (08:12)
[2022-02-20] MEDS: ASPIRIN 81 MG ECTAB PO SCH (08:12)
[2022-02-21] MEDS: ASPIRIN 81 MG ECTAB PO SCH (08:01)
[2022-02-21] MEDS: ATORVASTATIN 40 MG TAB PO SCH (08:01)
--- NOTE | 2022-02-21 13:37 | Hospitalist Progress Note ---
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 Reportedly continues without issues with swallowing or with coughing with eating. Has dysmetria with his right hand but is improving on 02/19 was able to ambulate with CG and RW Review of Systems Review of Systems: Mild distress and fatigue no headache, no visual changes no speech or swallowing issues no chest pain, pressure or palpitations no shortness of breath, cough or wheezes no abdominal pain, nausea or vomiting, diarrhea or constipation no dysuria, hematuria or frequency no focal joint pain or swelling no back pain, CVA tenderness or radicular pain no bruising, bleeding or rashes no focal signs of weakness or numbness or altered sensation no complaints of anxiety or depression.. Physical Exam Physical Exam: The patient appeared well nourished and normally developed. Vital signs as documented. Head exam is normocephalic atraumatic Neck is without JVD, thyromegaly, or carotid bruits. Lungs are clear to auscultation, no focal loss of breath sounds Cardiac exam, Rhythm is regular.. No murmurs, rubs or gallops. Abdominal exam reveals normal bowel sounds, soft non tender, no masses Extremities are nonedematous and both pedal pulses are present Neurologic exam is alert and oriented, right hand weakness and dysmetria Skin is without bruises or rashes Psychologically is without concerns for anxiety or depression.. Results & Data Results & Data ([facility]) Vital Signs (Past 12 Hours) Vital Signs Temp Pulse Resp BP Pulse Ox 02/21/22 11:39 97.5 F L 65 18 126/81 96 02/21/22 07:52 98.1 F 62 18 120/79 95 PG Care Time/CCT Total # of Minutes Spent Total Time Spent with Patient: Total time spent is greater than 50% in coordination of care (as documented) at patient's floor/unit and/or counseling patient: Coding Level of Care Code 27341 Subseq Hosp Care Lvl 2 Diagnoses Unwitnessed fall R29.6 History of hemorrhagic cerebrovascular accident (CVA) with residual deficit I69.30 Hypertension I10 Hyperlipidemia E78.5
[2022-02-22] MEDS: ASPIRIN 81 MG ECTAB PO SCH (08:38)
[2022-02-22] MEDS: ATORVASTATIN 40 MG TAB PO SCH (08:38)
--- NOTE | 2022-02-22 08:40 | Neurology Progress Note ---
Date of Service February 22, 2022 Assessment & Plan (1) Stroke: (2) History of hemorrhagic cerebrovascular accident (CVA) with residual deficit: Plan: This patient had and a small (1.3 cm) acute left thalamic stroke with tiny left occipital and left henson radiata infarcts as well. He had a significant right hemiparesis, leg greater than arm, and an unwitnessed fall. Currently the patient has made marked improvements in his strength and only has some very mild right upper extremity weakness. the right leg is. In addition, he has no dysesthesias or sensory deficits on the right side. He has a history of a remote right cerebellar hemorrhage. MRI shows an old right cerebellar area of encephalomalacia consistent with previous stroke. The patient significant stroke risk factors, including hypertension, hyperlipidemia, and former smoker. MRI of the brain showed extensive small- vessel ischemia recommendations: 1. continue 81 milligram aspirin tablet daily 2. continue atorvastatin 80 milligrams daily. 3. control blood pressure as you are doing, aiming for a mean arterial pressure of approximately 95. Avoid over-correction. 4. Consider 30-day mobile cardiac outpatient telemetry. 5. increase activity is able and continue physical, occupational, and speech therapy. 6. follow up with Neurology as an outpatient in 2-3 weeks with 1 of the Neurology PAs and Dr. Hall. Overall, I spent a total of 45 minutes with this case including review of records, review of MRI films, direct evaluation the patient at bedside, and discussion of the case with patient at bedside. Admission and Anticipated Discharge Date Admission Date: February 16, 2022 Subjective Patient has no complaint of pain, headache, numbness and tingling, or dizziness. He believes his right side is weaker than the left but is getting much better than it was earlier this hospitalization. MRI of the brain earlier this hospitalization showed small left thalamic lacune with tiny ischemic areas in the left occipital area and on tiny left periventricular region. There is significant generalized atrophy and old small vessel ischemic disease and old right cerebellar reviewed these films. CT angiography Of the head and neck were unremarkable except for some stenosis of the left posterior cerebral artery P1 segment. Today blood pressure is 107/73 And he is afebrile. Results & Data ([facility]) Vital Signs (Past 12 Hours) Vital Signs Temp Pulse Resp BP BP Pulse Ox 02/22/22 07:37 36.5 C 60 18 107/73 93 02/21/22 22:40 36.9 C 56 L 18 146/78 H 95 Exam (Neuro) Physical Exam: The patient is awake, alert, and attentive, with normal speech and communication. Mood is normal and affect is appropriate. Patient is reasonably oriented but may have some short and filter washer memory deficits. Extraocular eye muscles are intact without nystagmus. Facial strength and symmetry is normal bilaterally. Facial sensation is normal bilaterally in all 3 divisions of the fifth cranial nerve. Tongue is midline with normal strength bilaterally. Gait was not tested. Stance sitting up in bed is reasonable. Coordination of the arms is normal, without tremor or ataxia bilaterally. Motor strength is 4+/5 proximally and distally in the right upper extremity and closer to 5/5 diffusely in the left upper extremity. Leg strength was essentially 5/5 bilaterally both proximally distally. Toes were upgoing to plantar stimulation on the right and downgoing on the left. PG Care Time/CCT Total # of Minutes Spent Total Time Spent with Patient: Total time spent is greater than 50% in coordination of care (as documented) at patient's floor/unit and/or counseling patient: Coding Level of Care Code 90924 Subseq Hosp Care Lvl 3 Diagnoses Stroke I63.9 History of hemorrhagic cerebrovascular accident (CVA) with residual deficit I69.30 Time Spent (min) 45
[2022-02-22] MEDS ORDERED: STROKE PATIENT DISCHARGE STA (11:23)
--- NOTE | 2022-02-22 11:31 | Discharge Summary ---
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 Last known normal is sometime between 6:30 AM to ~6PM on 02/14. History is primarily provided by patient's long-term partner, who is at the bedside. Patient tells me that sometime during the day (does not remember the time of day/what time) he was writing a check and his right arm started "going to sleep." While he normally has some deficits on the side from his previous CVA, this was different. He describes difficulty writing, more than usual, and a tingling sensation that ran down his right arm. He went to get up and he fell over. He does not remember hitting his head. His partner then found him upon returning home around 6 PM. He was fully responsive. He denies headache now. He really does not remember too much after the event. Denies any nausea or vomiting. Denies any recent illnessesno recent fever, chills, sweats, cough, issues with voiding/stooling. He denies any changes in medications. Denies issues with orthostasis. Does not regularly consume alcohol, utilize recreational drugs, or tobacco products. He lives at home with his partner. His partner does mention that he has struggled with depression like symptoms for a while. He was previously on sertraline, however developed hives after being on it so it was stopped. It has been a while since he seen his family doctor. At baseline, patient tends to be more quiet and reserved - per his partner. 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 In the emergency department, patient was found to be hemodynamically stable with normal vital signs. Labs demonstrated a white count of 16 with left shift, normal electrolytes, blood sugar 100. LFTs demonstrated elevated total bilirubin 1.5. Creatinine kinase 278. High-sensitivity troponin 7.1. TSH 2.9. UA largely unremarkable. COVID-negative. Chest x-ray without focal abnormalities, though film quality was suboptimal. CT head, stat rad: "No skull fracture, acute bleed, or acute intracranial abnormality. Moderate, chronic, nonspecific white matter disease, including bilateral basal ganglia ophthalmic lacunar infarct. " Principal Diagnosis acute stroke involving left thalamus, left occipital lobe and left henson radiata Discharge Exam gen - NAD, sitting in chair neck - no JVD mouth - MMM face - ?slight lower right facial droop heart - RRR, s1 s2, no murmur lungs - CTA b/l abd - soft NT ND BS+ ext - trace edema b/l, pulses 2+ b/l neuro - scant right-sided pronator drift; scant weakness right arm/right leg (4- 5/5) vs left arm/left leg (5/5); scant ?right-sided facial droop; ataxia finger/nose/finger maneuver right hand; no ataxia left hand; speech mainly clear (maybe slightly dysarthric at times) Discharge Data Allergies Allergy/AdvReac Type Severity Reaction Status Date / Time sertraline Allergy Intermediate HIVES Verified 02/15/22 06:01 Penicillins Allergy Mild HIVES Verified 12/20/19 10:24 strawberry Allergy Unknown HIVES Verified 12/20/19 10:24 [address]ations [facility] PT OT Speech therapy Procedures Performed Echocardiogram: * EF 55-60% * no PFO * no thrombus * normal valve function Ordered Studies Chest X-Ray 02/14/22 23:40 SINGLE VIEW CHEST CLINICAL HISTORY: Fall. Generalized weakness. FINDINGS: An AP, portable, upright chest radiograph is compared to study dated 12/20/2019. The heart is enlarged noting atherosclerotic calcification of the thoracic aorta. There is prominence of the pulmonary vasculature. Chronic interstitial thickening is similar to previous. Atelectasis is noted at the lung bases. The lungs and pleural spaces are otherwise clear. No pneumothorax is seen. The skeletal structures are osteopenic. The bony thorax is grossly intact. IMPRESSION: 1. Cardiomegaly with prominence of the pulmonary vasculature. Correlate clinically for evidence of mild congestive failure. 2. No airspace consolidation or large pleural effusion is identified. ACT 112: Negative or not required by law. Electronically signed by: Moess Vega M.D. 02/15/2022 7:[address] 02/14/22 23:40 CT angio neck with con, CT angio head w con, CT head/brain wo con CLINICAL HISTORY: 71 years-old Male with R sided weakness, syncope. Acute strokelike symptoms with right-sided weakness COMPARISON STUDY: Brain MRI 06/24/2011 TECHNIQUE: Following the IV administration of 119 mL of Optiray, CT angiogram of the head and neck was performed from the aortic arch to the skull base. Images are reviewed in the axial, sagittal, and coronal planes. 3-D MIPS images are created and assessed. IV contrast was administered without complication. Noncontrast head CT also obtained. All measurements were calculated based on NASCET criteria. A dose lowering technique was utilized adhering to the principles of ALARA. CT DOSE: 614.27 mGy.cm FINDINGS: CT HEAD: Age-related involutional changes. White matter hypodensities suggest chronic microvascular ischemic disease. Cerebral vascular calcifications. No acute intracranial hemorrhage, midline shift, abnormal extra-axial collection, hydrocephalus, acute territorial infarct or intracranial mass. Chronic appearing lacunar infarcts of the basal ganglia. No acute calvarial fracture. Small left mastoid effusion. Minimal mucosal thickening of the paranasal sinuses. Soft tissues and orbits are unremarkable. CTA HEAD AND NECK: Three-vessel morphology of the thoracic aortic arch. There is patency of the innominate and imaged subclavian arteries. The common carotid arteries are patent. Atherosclerotic plaque of the carotid bulbs results in less than 50% stenosis bilaterally. The internal carotid arteries are widely patent. The middle and anterior cerebral arteries appear unremarkable. Mild multifocal luminal narrowing of the right middle cerebral artery. The left vertebral artery is dominant. Atherosclerotic plaque at the V4 segment of the left vertebral artery results in mild stenosis. The vertebral, basilar and posterior cerebral arteries are patent. Multifocal stenoses of the left posterior cerebral artery is high-grade within the P1 segment on image 386. The right posterior cerebral artery is patent. The cerebral venous sinuses are patent. No pneumothorax. Unremarkable soft tissues of the neck. Mild polypoid mucosal thickening of the left maxillary sinus. Degenerative changes of the cervical spine. IMPRESSION: 1. No acute intracranial abnormality. 2. 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 3. Atherosclerotic vascular disease without additional high-grade stenosis, aneurysm, dissection or proximal branch occlusion. ACT 112: Negative or not required by law. The above report was generated using voice recognition software. It may contain grammatical, syntax or spelling errors. Electronically signed by: Bebeto Morelos M.D. 02/15/2022 6:52 AM Hip X-Ray 02/15/22 02:06 XR hip RT min 2V CLINICAL HISTORY: Right hip pain following fall. COMPARISON: None FINDINGS: Alignment of the right hip is anatomic. No acute fracture. No osseous lesion is noted. No evidence for avascular necrosis of the right femoral head. No acute fracture within visualized portions of the pelvis. IMPRESSION: No acute fracture or dislocation within the right hip. ACT 112: Negative or not required by law. Electronically signed by: Drake Ryan M.D. 02/15/2022 8:01 AM Brain MRI 02/15/22 04:50 MRI OF THE BRAIN WITHOUT IV CONTRAST CLINICAL HISTORY: Fall. Stroke like symptoms. COMPARISON STUDY: CT of the brain dated 02/15/2022. TECHNIQUE: MRI of the brain was performed utilizing various T1 and T2-weighted sequences in the axial, sagittal, and coronal planes. IV contrast was not administered for this examination. FINDINGS: Brain parenchyma: There is a 13 mm focus of restricted diffusion in the left thalamus consistent with an acute to subacute lacunar infarct. Additional foci of restricted diffusion are present in the left occipital lobe. A punctate focus of restricted diffusion is seen in the left henson radiata. Hemosiderin deposition in the right cerebellar hemisphere suggests remote hemorrhage. No acute hemorrhage is identified. There is no mass effect. There is age-related involutional change noting advanced confluent subcortical and periventricular intrahepatic disease. Chronic lacunar infarcts are noted in the right thalamus, the left centrum semiovale, and the right caudate head. No extra-axial fluid collection is seen. The cerebellar tonsils are normal in configuration. Ventricles, sulci, and cisterns: Prominent secondary to involutional change. Pituitary and sella: Unremarkable. Intracranial vasculature: Normal flow voids are maintained at the skull base. Orbits: The bony orbits are grossly intact. Orbital contents are normal in appearance. Sinuses and mastoids: There is mild mucosal thickening within the maxillary antra. A 14 mm retention cyst is seen on the left. Mild mucosal thickening is also noted in the sphenoid sinuses. There is a left mastoid effusion. Calvarium: Unremarkable. Cervical cord: Partially visualized cervical spinal cord is normal in morphology and signal intensity. IMPRESSION: 1. There is a 13 mm focus of restricted diffusion centered in the left thalamus consistent with an acute to subacute lacunar infarct. 2. Additional foci of restricted diffusion are identified in the left occipital lobe and in the left henson radiata. These are also consistent with acute to subacute ischemia. 3. There is no evidence of acute hemorrhage or mass effect. 4. 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 Electronically signed by: Moses Vega M.D. 02/15/2022 7:28 AM Head CTA 02/15/22 05:30 CT angio neck with con, CT angio head w con, CT head/brain wo con CLINICAL HISTORY: 71 years-old Male with R sided weakness, syncope. Acute strokelike symptoms with right-sided weakness COMPARISON STUDY: Brain MRI 06/24/2011 TECHNIQUE: Following the IV administration of 119 mL of Optiray, CT angiogram of the head and neck was performed from the aortic arch to the skull base. Images are reviewed in the axial, sagittal, and coronal planes. 3-D MIPS images are created and assessed. IV contrast was administered without complication. Noncontrast head CT also obtained. All measurements were calculated based on NASCET criteria. A dose lowering technique was utilized adhering to the principles of ALARA. CT DOSE: 614.27 mGy.cm FINDINGS: CT HEAD: Age-related involutional changes. White matter hypodensities suggest chronic microvascular ischemic disease. Cerebral vascular calcifications. No acute intracranial hemorrhage, midline shift, abnormal extra-axial collection, hydrocephalus, acute territorial infarct or intracranial mass. Chronic appearing lacunar infarcts of the basal ganglia. No acute calvarial fracture. Small left mastoid effusion. Minimal mucosal thickening of the paranasal sinuses. Soft tissues and orbits are unremarkable. CTA HEAD AND NECK: Three-vessel morphology of the thoracic aortic arch. There is patency of the innominate and imaged subclavian arteries. The common carotid arteries are patent. Atherosclerotic plaque of the carotid bulbs results in less than 50% stenosis bilaterally. The internal carotid arteries are widely patent. The middle and anterior cerebral arteries appear unremarkable. Mild multifocal luminal narrowing of the right middle cerebral artery. The left vertebral artery is dominant. Atherosclerotic plaque at the V4 segment of the left vertebral artery results in mild stenosis. The vertebral, basilar and posterior cerebral arteries are patent. Multifocal stenoses of the left posterior cerebral artery is high-grade within the P1 segment on image 386. The right posterior cerebral artery is patent. The cerebral venous sinuses are patent. No pneumothorax. Unremarkable soft tissues of the neck. Mild polypoid mucosal thickening of the left maxillary sinus. Degenerative changes of the cervical spine. IMPRESSION: 1. No acute intracranial abnormality. 2. 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 3. Atherosclerotic vascular disease without additional high-grade stenosis, aneurysm, dissection or proximal branch occlusion. ACT 112: Negative or not required by law. The above report was generated using voice recognition software. It may contain grammatical, syntax or spelling errors. Electronically signed by: Bebeto Morelos M.D. 02/15/2022 6:52 AM Neck CTA 02/15/22 05:30 CT angio neck with con, CT angio head w con, CT head/brain wo con CLINICAL HISTORY: 71 years-old Male with R sided weakness, syncope. Acute strokelike symptoms with right-sided weakness COMPARISON STUDY: Brain MRI 06/24/2011 TECHNIQUE: Following the IV administration of 119 mL of Optiray, CT angiogram of the head and neck was performed from the aortic arch to the skull base. Images are reviewed in the axial, sagittal, and coronal planes. 3-D MIPS images are created and assessed. IV contrast was administered without complication. Noncontrast head CT also obtained. All measurements were calculated based on NASCET criteria. A dose lowering technique was utilized adhering to the principles of ALARA. CT DOSE: 614.27 mGy.cm FINDINGS: CT HEAD: Age-related involutional changes. White matter hypodensities suggest chronic microvascular ischemic disease. Cerebral vascular calcifications. No acute intracranial hemorrhage, midline shift, abnormal extra-axial collection, hydrocephalus, acute territorial infarct or intracranial mass. Chronic appearing lacunar infarcts of the basal ganglia. No acute calvarial fracture. Small left mastoid effusion. Minimal mucosal thickening of the paranasal sinuses. Soft tissues and orbits are unremarkable. CTA HEAD AND NECK: Three-vessel morphology of the thoracic aortic arch. There is patency of the innominate and imaged subclavian arteries. The common carotid arteries are paten t. Atherosclerotic plaque of the carotid bulbs results in less than 50% stenosis bilaterally. The internal carotid arteries are widely patent. The middle and anterior cerebral arteries appear unremarkable. Mild multifocal luminal narrowing of the right middle cerebral artery. The left vertebral artery is dominant. Atherosclerotic plaque at the V4 segment of the left vertebral artery results in mild stenosis. The vertebral, basilar and posterior cerebral arteries are patent. Multifocal stenoses of the left posterior cerebral artery is high- grade within the P1 segment on image 386. The right posterior cerebral artery is patent. The cerebral venous sinuses are patent. No pneumothorax. Unremarkable soft tissues of the neck. Mild polypoid mucosal thickening of the left maxillary sinus. Degenerative changes of the cervical spine. IMPRESSION: 1. No acute intracranial abnormality. 2. 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 3. Atherosclerotic vascular disease without additional high-grade stenosis, aneurysm, dissection or proximal branch occlusion. ACT 112: Negative or not required by law. The above report was generated using voice recognition software. It may contain grammatical, syntax or spelling errors. Electronically signed by: Bebeto Morelos M.D. 02/15/2022 6:[address] 02/15/22 05:42 CT cervical spine wo con CT DOSE: 910.56 mGy.cm CLINICAL HISTORY: 71 years-old Male with syncope, possibly hit head; eval for cervical fx. Acute head and neck injury status post fall COMPARISON: Head CT of same day TECHNIQUE: Multiple axial CT images of the cervical spine were obtained without contrast. A dose lowering technique was utilized adhering to the principles of ALARA. FINDINGS: Multilevel there is moderate multilevel intervertebral disc space narrowing with associated uncovertebral hypertrophy, posterior disc osteophyte complex formations and mild to moderate facet arthrosis. No acute fracture or subluxation. Multilevel neural foraminal narrowing. Small left mastoid effusion. No pneumothorax. No prevertebral edema. Calcified plaque of the carotid bulbs. IMPRESSION: No acute cervical spine fracture or subluxation. ACT 112: Negative or not required by law. The above report was generated using voice recognition software. It may contain grammatical, syntax or spelling errors. Electronically signed by: Bebeto Morelos M.D. 02/15/2022 7:08 AM Hospital Course (1) Acute cerebrovascular accident (CVA): The patient's presenting unwitnessed fall and right-sided symptoms were due to the left-sided acute thalamic stroke. MRI brain also showed stroke in the left occipital lobe & left henson radiata. He was seen in consult by [facility] who recommended aspirin 81mg daily for secondary prevention as well as high-intensity statin therapy. Lipid profile showed LDL of 119 and HDL of 43. 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 Medical management advised for such. No a.fib or a.flutter was seen on telemetry. He was seen by PT/OT/speech therapy and acute rehab was advised as he has acute deficits in the setting of prior deficits from past stroke. In addition, the patient will be set up for a 30-day event monitor to rule out paroxysmal a.fib as the cause of his recurrent strokes. Finally, the patient had largely acceptable BPs during the hospitalization despite holding his amlodipine. The amlodipine will be held at time of discharge. (2) Occlusion of posterior cerebral artery: left-sided, high-grade stenosis. medical management at this time. (3) History of hemorrhagic cerebrovascular accident (CVA) with residual deficit: 2006 - right cerebellar hemorrhagic stroke. (4) Unwitnessed fall: 2nd to #1 above. Continue PT/OT. (5) GERD (gastroesophageal reflux disease): Continue once-daily pantoprazole. (6) Hyperlipidemia: Stop simvastatin. Start atorvastatin 80mg once daily. Lipid profile showed LDL of 119 and HDL of 43. Triglycerides = 105. (7) Hypertension: Hold amlodipine at time of discharge as BPs were largely controlled without its use. Follow BPs carefully and reinstitute amlodipine as needed. Total Time Total Time Spent Total Time Spent (In Minutes): 45 Discharge Plan Discharge Items Patient Disposition: Transfer Snf Fac Reason For Visit: FALL Discharge Diagnosis: Acute stroke - left thalamus, left occipital lobe, and left henson radiata Fall - due to the acute stroke Activity: Resume your previous activity Non-emergency contact: Primary Care Provider Call non-emergency contact if: you have any medication questions, your symptoms worsen and you have a fever Follow-up/Referrals: Lino Hall MD [Physician] - (2-3 weeks; Dr Hall or one of his partners ) Tara Polanco CRNP [Primary Care Provider] - (follow-up with PCP within 1 week of discharge from SNF) Diet: Heart Healthy Carloz Attending Provider Instructions: Mr Medina, You were hospitalized for an unwitnessed fall at your home. It was ultimately discovered that you had suffered a new stroke on the left side of the brain. There were 3 areas of new stroke on the MRI brain, but the main culprit stroke was deep in the brain in a structure called "the thalamus." [facility] saw you in consult and recommended aspirin and a higher dose of cholesterol medication to prevent another stroke. In addition, neurology advised a 30-day heart monitor to rule out a.fib which is an irregular heart rhythm that can lend itself to a stroke. You have made improvement in your therapies while hospitalized and will transfer to [facility] for ongoing rehab. Recommendations - 1. aspirin 81mg daily for prevention of future stroke 2. atorvastatin 80mg once daily for cholesterol 3. thirty-day heart event monitor - this will be mailed to your home with instructions on its use; you can begin to wear the monitor while staying at [facility] 4. follow-up with [facility] in 2-3 weeks [facility] [employer] Provider Instructions: Risk Factors for Stroke: You can reduce your chances of stroke by working with your medical provider to adopt a healthy lifestyle. Some specific ways to lower your chance of stroke are: * If you are a smoker, now is the time to stop smoking cigarettes * If you are diabetic, improve the control of your blood sugars * Avoid excessive amounts of alcohol * Control high blood pressure * Lose weight if you are overweight * Be sure to lead an active lifestyle * Eat a healthy diet low in salt, cholesterol and fat You should know about other risk factors for stroke that you are unable to control. These include: * Age 55 years or older * Male gender * Certain racial groups: , or / * Family History of Stroke, Mini stroke or Heart Attack * Sickle Cell Disease Follow Up: It is important for you to keep your follow up appointments with your medical provider. Who to Call and When: Medical Emergencies: Call 911 immediately if you experience any of the following warning signs and symptoms of Stroke: * Sudden numbness or weakness of the face, arm or leg, especially on one side of the body * Sudden confusion, trouble speaking or understanding * Sudden trouble seeing in one or both eyes * Sudden trouble walking, dizziness, loss of balance or coordination * Sudden severe headache with no cause Do not delay calling 911 if you experience any warning signs or symptoms of a stroke. Delay in seeking medical attention may affect what treatments can be given to you. . Pending Studies at Discharge: No Stand-Alone Forms: Medications to Prevent Stroke, My [facility] Skilled Items Patient informed of condition?: Yes DNR: No Discharge Level of Care: Skilled Communicable Disease: No Discharge Prognosis: Stable Lines: None Urinary Catheter: No Medications and DC Order Prescriptions: New aspirin 81 mg Tablet,Delayed Release (Dr/Ec) 81 mg PO QAM Qty: 90 RF: 3 atorvastatin [Lipitor] 80 mg tablet 80 mg PO DAILY Qty: 30 RF: 5 Continued multivitamin Tablet 1 tab PO QAM RF: 0 pantoprazole 40 mg tablet,delayed release (DR/EC) 40 mg PO DAILY RF: 0 acetaminophen 500 mg Tablet 500 mg PO Q6H PRN (Reason: Pain) RF: 0 sertraline 50 mg Tablet 50 mg PO QAM Qty: 30 RF: 3 Discontinued simvastatin 10 mg tablet 10 mg PO QAM RF: 0 amlodipine 5 mg tablet 5 mg PO QAM RF: 0 benzonatate [Tessalon Perles] 100 mg capsule 100 mg PO TID PRN (Reason: cough) Qty: 15 RF: 0 Discharge Orders: Discharge Order (Routine); Ordered 02/22/22 Ordered By: Prabhu Vogel Admission Data Admit Date/Time: 02/16/22 11:21 Attending Provider: Prabhu Vogel Admit Provider: Esmer Vidal Primary Care Provider: Tara Polanco Other Providers: Felton Potts ; [facility] ; Esmer Vidal ; [facility] Hall ; [facility] ; [place] Other Interventions: Discharge Summary Assessment (RN) Last Done: 02/22/22 11:12 Coding Level of Care Code D/C DAY MANAGEMENT >30 MINS Diagnoses Acute cerebrovascular accident (CVA) I63.9 Occlusion of posterior cerebral artery I66.29 History of hemorrhagic cerebrovascular accident (CVA) with residual deficit I69.30 Unwitnessed fall R29.6 GERD (gastroesophageal reflux disease) K21.9 Hyperlipidemia E78.5 Hypertension I10
== END 2022-02-22 13:57 | DRG 65 ==
LOC: ED 23:00 → 2N 23:00 → SUATTDRO 02-15 04:47 → 2N 02-15 09:50 → SUATTDRO 02-16 11:21

== ENCOUNTER 2023-08-23 06:42 | Inpatient (IN) ==
--- NOTE | 2023-08-23 06:53 | Emergency Department Note ---
Impression & Plan Generalized weakness, COVID-19, ANDERS (acute kidney injury), Leukocytosis ED Provider Note HISTORY OF PRESENT ILLNESS: Patient is a 72-year-old male presenting with generalized weakness and a fall from standing. Patient reportedly was found down at home by family. Patient reportedly was nearly confused per family and significantly weak. Patient reports she was too weak to get up on his own. He denies passing out. He states that he lost his footing while walking to the bathroom. Denies any chest pain or shortness of breath. He has no complaints on arrival to the ER. Denies any recent fevers. Denies any abdominal pain, nausea or vomiting. Denies striking his head or loss of consciousness. ROS: as above PHYSICAL EXAM: Constitutional: Patient appears in no acute distress. HENT: Head: Normocephalic and atraumatic. Eyes: EOMI, PERRL Mouth/Throat: Mucous membranes moist. Neck: Trachea midline. Neck supple. Cardiovascular: RRR, No murmurs, rubs or gallops. Intact distal pulses. Pulmonary/Chest: No respiratory distress. Breath sounds clear and equal bilaterally. No wheezes or rales. No chest wall tenderness to palpation. Abdominal: Abdomen soft, no tenderness, rebound or guarding. Back: No midline spinal tenderness, no paraspinal tenderness, no CVA tenderness. Musculoskeletal: No edema, tenderness or deformity noted. Skin: Warm and dry. No rash, erythema, pallor or cyanosis Psychiatric: Appropriate mood and affect for situation. Neurological: Alert and keenly responsive. CN II-XII grossly intact, moving all extremities equally and fully. MDM: - Vitals signs stable. - History obtained via patient. Patient presents with generalized weakness and a fall from standing. Patient reportedly was found down on the ground at home by family. He reports that he was not down on the ground long but he was too weak to get up and get around on his own. He denies striking his head or loss of consciousness. Denies any recent fevers. Reports he has been feeling very weak over the last few days at home. He has no complaints on arrival to the ER. - Chronic conditions affecting care: CVA; HTN; HLD - Differential diagnoses include, but are not limited to: Intracranial hemorrhage; CVA; ACS; electrolyte abnormality; pneumonia; UTI - Order placed for continuous cardiac monitoring. At this time, monitor showed rate of 75 bpm with normal sinus rhythm, per my interpretation. - External medical records reviewed. EMS run sheet reviewed. Patient was vitally stable in route. Fingerstick glucose was 169. No meds were given prehospital. - EKG reviewed by myself showed normal sinus rhythm. Rate 90 bpm. QTc 413. No acute ischemic changes. - Laboratory workup interpreted by myself showed leukocytosis (WBC 13.47) with left shift; ANDERS (Cr 1.45); normal CK; normal troponin - COVID positive - CXR negative for pneumonia, per my interpretation - CT head wo contrast negative for acute intracranial pathology - Patient given 1L NS in ER. - UA ordered. - Discussed results with patient. He feels too weak to go home, and family expresses concern for their ability to care for him at this time. - Discussion was had with delinquency prevention social worker about patient's case and need for admission - Hospitalist consulted for admission [facility] ASSESSMENT AND PLAN: Diagnosis: generalized weakness; ANDERS; COVID-19 infection; leukocytosis Plan: admit Past Med/Surg History Medical History (Updated 08/23/23 @ 09:51 by Teri Benítez MD) H/O: stroke History of hemorrhagic cerebrovascular accident (CVA) with residual deficit Unwitnessed fall GERD (gastroesophageal reflux disease) Hyperlipidemia Hypertension No significant past medical history Surgical History No pertinent past surgical history Family History Other No pertinent family history in first degree relatives Social History Smoking Status: Never smoker Second Hand Exposure: No; Do You Dip or Chew Tobacco: Yes; Hx Alcohol Use: No Hx Substance Use: No Preferred Language: Samoan Communication Ability: Impaired Face Man Required: No Beliefs That Will Affect Care: None marital status: Life Partner Current Living Situation: Significant Other Feels Safe at Home: Yes Assistive Devices: None Allergies Allergies Allergy/AdvReac Type Severity Reaction Status Date / Time sertraline Allergy Intermediate HIVES Verified 02/15/22 06:01 Penicillins Allergy Mild HIVES Verified 12/20/19 10:24 strawberry Allergy Unknown HIVES Verified 12/20/19 10:24 Home Meds Home Medications Medication Instructions Recorded Confirmed multivitamin 1 tab PO QAM 12/19/19 12/20/19 pantoprazole 40 mg tablet,delayed 40 mg PO DAILY 12/19/19 02/15/22 release acetaminophen 500 mg tablet 500 mg PO Q6H PRN Pain 12/20/19 12/20/19 Previous Rx's Medication Instructions Recorded sertraline 50 mg tablet 50 mg PO QAM #30 tabs 12/22/19 aspirin 81 mg tablet,delayed 81 mg PO QAM #90 tabs 02/22/22 release atorvastatin 80 mg tablet (Lipitor) 80 mg PO DAILY #30 tabs 02/22/22 polyethylene glycol 3350 17 17 g PO DAILY #119 grams 02/22/22 gram/dose oral powder (Miralax) sennosides 8.6 mg tablet (senna) 17.2 mg (2 x 8.6 mg) PO DAILY #60 02/22/22 tabs Results & Data (ED) Vital Signs Vital Signs - 24 hr 08/23/23 06:49 08/23/23 07:41 08/23/23 07:53 Temperature 37.4 C Temperature Source Oral Pulse Rate 91 H 77 82 Respiratory Rate 22 20 Blood Pressure 118/74 93/69 L Blood Pressure Mean 88 77 Pulse Oximetry 93 93 Oxygen Delivery Method Room Air Room Air Sepsis Recent Fever Within 48 Hours No Sepsis New/Unexplained Change in Mental Status No Sepsis Action Taken by Nursing No Action Required 08/23/23 08:00 08/23/23 08:30 08/23/23 09:00 Temperature Temperature Source Pulse Rate 78 76 74 Respiratory Rate 21 24 15 Blood Pressure 125/75 137/59 L 131/71 Blood Pressure Mean 91 85 91 Pulse Oximetry 93 92 93 Oxygen Delivery Method Room Air Room Air Room Air Sepsis Recent Fever Within 48 Hours Sepsis New/Unexplained Change in Mental Status Sepsis Action Taken by Nursing Laboratory Data 08/23/23 06:45 08/23/23 06:45 Lab Results 08/23/23 08/23/23 Range/Units 06:45 07:55 WBC 13.47 H (4.8-10.8) K/ul RBC 5.12 (4.70-6.10) M/uL Hgb 15.1 (14.0-18.0) g/dl Hct 44.9 (42.0-52.0) % MCV 87.7 (80.0-100.0) fL MCH 29.5 (25.0-34.0) pg MCHC 33.6 (32.0-36.0) g/dL RDW Std Deviation 44.7 (36.4-46.3) fL RDW Coeff of Alvaro 13.8 (11.5-14.5) % Plt Count 306 (130-400) K/uL MPV 8.5 L (9.4-12.4) fL Immature Gran % (Auto) 0.3 % Neut % (Auto) 74.9 % Lymph % (Auto) 13.7 % Erie % (Auto) 10.4 % Eos % (Auto) 0.3 % Baso % (Auto) 0.4 % Neut # (Auto) 10.10 H (1.40-6.50) K/uL Lymph # (Auto) 1.84 (1.20-3.40) K/uL Erie # (Auto) 1.40 H (0.11-0.59) K/uL Eos # (Auto) 0.04 (0.00-0.50) K/uL Baso # (Auto) 0.05 (0.00-0.20) K/uL Immature Gran # (Auto) 0.04 (0.01-0.20) K/uL Sodium 136 (136-145) mmol/L Potassium 3.9 (3.5-5.1) mmol/L Chloride 105 (98-107) mmol/L Carbon Dioxide 22 (21-32) mmol/L Anion Gap 9 (3-11) BUN 14 (6-23) mg/dl Creatinine 1.45 H (0.6-1.4) mg/dl Est Cr Clr Drug Dosing 50.3 ml/min Est GFR ( Amer) 55.4 ml/min Est GFR (Non-Af Amer) 47.8 ml/min BUN/Creatinine Ratio 9.7 L (10-20) Glucose 142 H (70-99(Fasting)) mg/dl Calcium 9.2 (8.6-10.3) mg/dl Magnesium 1.8 (1.7-2.4) mg/dl Total Bilirubin 2.2 H (0.2-1.0) mg/dl AST 29 (13-39) U/L ALT 47 (7-52) U/L Alkaline Phosphatase 76 (34-104) U/L Total Creatine Kinase 131 (30-223) U/L Troponin I High Sens 6.1 (0-20) pg/ml Total Protein 7.5 (6.0-8.3) gm/dl Albumin 4.2 (3.4-5.0) gm/dl Globulin 3.3 (2.5-4.0) gm/dl Albumin/Globulin Ratio 1.3 (0.9-2) SARS-CoV-2 (PCR) POSITIVE A* (Negative) Influenza Type A (PCR) Negative (Neg) Influenza Type B (PCR) Negative (Neg) RSV (RT-PCR) Negative (Neg) Administered Medications Discontinued Medications Sodium Chloride (Nss) 1,000 mls @ 999 mls/hr IV .Q1H1M ONE Stop: 08/23/23 08:34 Last Infusion: 08/23/23 09:35 Dose: Infused Documented By: Admin: 08/23/23 07:54 Dose: 999 mls/hr Documented By: SHADY Imaging Data Radiologist's Impression: Head CT 08/23/23 06:50 CT SCAN OF THE BRAIN WITHOUT IV CONTRAST CLINICAL HISTORY: Fall. COMPARISON STUDY: CT of the brain dated 02/15/2022 TECHNIQUE: Unenhanced axial CT scan of the brain is performed from the vertex to the skull base. A dose lowering technique was utilized adhering to the principles of ALARA. CT DOSE: 625.8 mGy.cm FINDINGS: Brain parenchyma: There is age-related involutional change noting moderate patchy subcortical and periventricular microangiopathic disease. There is no hemorrhage, mass effect, or evidence of acute territorial ischemia by CT criteria. Chronic lacunar infarcts are noted in both thalami. Mcneal-white matter differentiation is preserved. No extra-axial fluid collection is seen. Ventricles, sulci, cisterns: Prominent secondary to involutional change. Intracranial vasculature: There is atherosclerotic calcification of the cavernous carotid and vertebral arteries. Calvarium: The skeletal structures are osteopenic. No depressed calvarial fracture is seen. Sinuses and mastoids: Mild mucosal thickening is seen within the left maxillary antrum with an air-fluid level. There is moderate mucosal thickening in the right sphenoid sinus. Trace mucosal thickening is seen within the left sphenoid sinus. There is a left mastoid effusion. The right mastoid air cells are well pneumatized. Orbits: The bony orbits are grossly intact. IMPRESSION: There is no hemorrhage, mass effect, or evidence of acute territorial ischemia by CT criteria. ACT 112: Negative or not required by law. Electronically signed by: Moses Vega M.D. 08/23/2023 8:07 AM Chest X-Ray 08/23/23 08:30 SINGLE VIEW CHEST CLINICAL HISTORY: Generalized weakness. FINDINGS: An AP, portable, upright chest radiograph is compared to study dated 02/15/2022. The heart is enlarged noting atherosclerotic calcification of the thoracic aorta. The pulmonary vasculature is noncongested. Chronic interstitial thickening is similar to previous. Mild atelectasis is noted at the lung bases. The lungs and pleural spaces are otherwise clear. No pneumothorax is seen. The skeletal structures are osteopenic. The bony thorax is grossly intact. IMPRESSION: Cardiomegaly with no active disease in the chest. ACT 112: Negative or not required by law. Electronically signed by: Moses Vega M.D. 08/23/2023 8:43 AM Discharge Plan Visit Data Chief Complaint: Fall ED Provider: Teri Benítez Discharge Problem: Generalized weakness, COVID-19, ANDERS (acute kidney injury), Leukocytosis Forms Stand Alone Forms: [facility] Prescriptions Prescriptions: No Action multivitamin Tablet 1 tab PO QAM pantoprazole 40 mg tablet,delayed release (DR/EC) 40 mg PO DAILY acetaminophen 500 mg Tablet 500 mg PO Q6H PRN (Reason: Pain) sertraline 50 mg Tablet 50 mg PO QAM Qty: 30 3RF aspirin 81 mg Tablet,Delayed Release (Dr/Ec) 81 mg PO QAM Qty: 90 3RF atorvastatin [Lipitor] 80 mg tablet 80 mg PO DAILY Qty: 30 5RF polyethylene glycol 3350 [Miralax] 17 gram/dose powder 17 g PO DAILY Qty: 119 0RF sennosides [senna] 8.6 mg tablet 17.2 mg PO DAILY Qty: 60 0RF Referrals Referrals: Tara Polanco CRNP [Primary Care Provider] -
[2023-08-23 07:05] LABS: Basophils # (auto) 0.05 K/uL (0.00-0.20); Basophils % (auto) 0.4 %; Eosinophils # (auto) 0.04 K/uL (0.00-0.50); Eosinophils % (auto) 0.3 %; Hematocrit (blood only) 44.9 % (42.0-52.0); Hemoglobin 15.1 g/dl (14.0-18.0); Immature Granulocytes # (auto) 0.04 K/uL (0.01-0.20); Immature Granulocytes % (auto) 0.3 %; Lymphocytes # (auto) 1.84 K/uL (1.20-3.40); Lymphocytes % (auto) 13.7 %; Mean Corpuscular Hemoglobin 29.5 pg (25.0-34.0); Mean Corpuscular Hgb Conc 33.6 g/dL (32.0-36.0); Mean Corpuscular Volume 87.7 fL (80.0-100.0); Mean Platelet Volume 8.5 fL (9.4-12.4); Monocytes % (auto) 10.4 %; Neutrophils % (auto) 74.9 %; Platelet Count 306 K/uL (130-400); RDW Coefficient of Variation 13.8 % (11.5-14.5); RDW Standard Deviation 44.7 fL (36.4-46.3); Red Blood Count 5.12 M/uL (4.70-6.10); White Blood Count 13.47 K/ul (4.8-10.8)
[2023-08-23 07:20] LABS: Albumin Level 4.2 gm/dl (3.4-5.0); Bilirubin,Total 2.2 mg/dl (0.2-1.0); Calcium 9.2 mg/dl (8.6-10.3); Magnesium 1.8 mg/dl (1.7-2.4); Potassium 3.9 mmol/L (3.5-5.1)
[2023-08-23 07:26] LABS: Albumin Globulin Ratio 1.3 (0.9-2); BUN Creatinine Ratio 9.7 (10-20); Creatinine Clr Calc Pharmacy 50.3 ml/min; Est GFR (African American) 55.4 ml/min; Est GFR (Non-African American) 47.8 ml/min; Globulin 3.3 gm/dl (2.5-4.0); Total Protein 7.5 gm/dl (6.0-8.3)
[2023-08-23 07:30] LABS: Troponin I High Sensitivity 6.1 pg/ml (0-20)
[2023-08-23] MEDS ORDERED: SODIUM CHLORIDE 0.9% 1,000 ML IV ONE (07:34)
--- NOTE | 2023-08-23 08:08 | CT Scan Report ---
CT SCAN OF THE BRAIN WITHOUT IV CONTRAST CLINICAL HISTORY: Fall. COMPARISON STUDY: CT of the brain dated 02/15/2022 TECHNIQUE: Unenhanced axial CT scan of the brain is performed from the vertex to the skull base. A do se lowering technique was utilized adhering to the principles of ALARA. CT DOSE: 625.8 mGy.cm FINDINGS: Brain parenchyma: There is age-related involutional change noting moderate patchy subcortical and per iventricular microangiopathic disease. There is no hemorrhage, mass effect, or evidence of acute terr itorial ischemia by CT criteria. Chronic lacunar infarcts are noted in both thalami. Mcneal-white matte r differentiation is preserved. No extra-axial fluid collection is seen. Ventricles, sulci, cisterns: Prominent secondary to involutional change. Intracranial vasculature: There is atherosclerotic calcification of the cavernous carotid and vertebr al arteries. Calvarium: The skeletal structures are osteopenic. No depressed calvarial fracture is seen. Sinuses and mastoids: Mild mucosal thickening is seen within the left maxillary antrum with an air-fl uid level. There is moderate mucosal thickening in the right sphenoid sinus. Trace mucosal thickening is seen within the left sphenoid sinus. There is a left mastoid effusion. The right mastoid air cell s are well pneumatized. Orbits: The bony orbits are grossly intact. IMPRESSION: There is no hemorrhage, mass effect, or evidence of acute territorial ischemia by CT eugenie powell. ACT 112: Negative or not required by law. Electronically signed by: Moses Vega M.D. 08/23/2023 8:07 AM
--- NOTE | 2023-08-23 08:45 | XRay Report ---
SINGLE VIEW CHEST CLINICAL HISTORY: Generalized weakness. FINDINGS: An AP, portable, upright chest radiograph is compared to study dated 02/15/2022. The heart is enlarged noting atherosclerotic calcification of the thoracic aorta. The pulmonary vasculature is no ncongested. Chronic interstitial thickening is similar to previous. Mild atelectasis is noted at the lung bases. The lungs and pleural spaces are otherwise clear. No pneumothorax is seen. The skeletal s tructures are osteopenic. The bony thorax is grossly intact. IMPRESSION: Cardiomegaly with no active disease in the chest. ACT 112: Negative or not required by law. Electronically signed by: Moses Vega M.D. 08/23/2023 8:43 AM
[2023-08-23 08:58] LABS: Influenza A virus by PCR Negative (Neg); Influenza B virus by PCR Negative (Neg); RSV by PCR Negative (Neg)
[2023-08-23 09:24] LABS: SARS CoV2 RNA(COVID-19) Ceph POSITIVE (Negative)
--- NOTE | 2023-08-23 10:13 | History & Physical Report ---
Date of Service August 23, 2023 Assessment & Plan (1) Ground-level fall: Plan: Morning of 08/23 Patient denies dizziness; says he "lost his footing" No head strike; no LOC; no tripping; no blood thinners Hx of falls over the past year Right-sided limp is since CVA in [address] revealed NAF Glucose 142 on arrival EKG NSR UA negative Fall precautions in place PT/OT consulted (2) COVID-19: Plan: COVID+ on arrival; nonhypoxic Clinically, patient denies fever, CP, pleuritic CP, SOB, dizziness, lightheadedness No at home oxygen use CXR NAF Leukocytosis at 13.47 with a neutrophil predominance Supplemental oxygen as needed with goal SPO2 >94% Given patient is not hypoxic, will defer remdesivir/steroids at this time Isolation precautions in place A.m. CBC, BMP (3) ANDERS (acute kidney injury): Plan: Mild BUN 14, Cr 1.45 (last baseline 1.05), EGFR 47.8 Avoid nephrotoxic agent (4) Generalized weakness: Plan: Started morning of 08/23 Likely secondary to COVID infection (5) History of hemorrhagic cerebrovascular accident (CVA) with residual deficit: Plan: Right cerebellar hemorrhage in May 2006 Continue aspirin daily No signs of active bleeding Given this hx, we will defer chemical DVT PPx at this time (6) Hypertension: Plan: Continue amlodipine (7) GERD (gastroesophageal reflux disease): Plan: Continue pantoprazole (8) Hyperlipidemia: Plan: Continue atorvastatin Plan Disposition: Admit to [facility] DNR/DNI AHA diet VTE PPx: SCDs (chemical DVT PPx was deferred due to h/o hemorrhagic stroke) History of Present Illness Chief Complaint: Fall Primary Care Provider: JILLIAN Lee Arpit is a 72-year-old male with PMH of multiple CVAs, depression, GERD, HTN, and HLD. He presented via EMS for confusion and a GL fall at home on the morning of 08/23. Patient reports he "lost his footing" when returning from the bathroom this morning at 0510. He denies dizziness/tripping/LOC. Patient lives in a trailer home with his (Leslie) and grandson, and was found on the ground by his with new onset confusion after the fall. Patient also reports he had trouble getting out of bed this morning due to generalized LE weakness. No head strike. No blood thinners. No LOC. Hx of falls; unwitnessed fall and acute CVA/TIA in 02/2022. Patient endorses a dry cough since yesterday, and numbness and tingling in the R arm/leg this morning. BSG WNL on arrival. Patient tested positive for COVID on arrival, but clinically denies SOB or pleuritic CP. He is not up-to-date with COVID vaccines or boosters. He did not have his flu shot this year. His grandson, who he lives with, works in a [employer]. While he denies sick contacts, his reports coughing/sneezing since 08/17, but tested negative for COVID on Tuesday 08/21. Patient did not taken his morning medications (will be given in the ED). Patient's vital signs were stable at time of admission. ED course: IVF ROS: Patient endorses clammy / sweating this morning, dry cough since yesterday, sneezing, and numbness / tingling in R arm and leg. Patient denies fever, PRASAD, dizziness, lightheadedness, difficulty swallowing, slurred speech, facial droop, vision changes, loss of taste or smell, hemoptysis, CP, pleuritic CP, SOB, abdominal pain, N/V/D, urinary symptoms, burning with urination, or pain/swelling in the legs. No PMHx of [place], DVT/PE, COPD, asthma, cancer, or diabetes. History of R-sided cerebral hemorrhage in 2005 Patient reports residual right-sided weakness, and limp since stroke Social hx: He denies current tobacco cigarette smoking; denies vaping Endorses using chewing tobacco Alcohol use; occasional; 2 drinks/week He denies other recreational drug use Please see Dr. Potts's attestation for any changes to treatment plan. Allergies Allergy/AdvReac Type Severity Reaction Status Date / Time sertraline Allergy Intermediate HIVES Verified 02/15/22 06:01 Penicillins Allergy Mild HIVES Verified 12/20/19 10:24 strawberry Allergy Unknown HIVES Verified 12/20/19 10:24 Home Medications Medication Instructions Recorded Confirmed Type multivitamin 1 tab PO QAM 12/19/19 08/23/23 History pantoprazole 40 mg tablet,delayed 40 mg PO DAILY 12/19/19 08/23/23 History release acetaminophen 500 mg tablet 500 mg PO Q6H PRN Pain 12/20/19 12/20/19 History aspirin 81 mg tablet,delayed 81 mg PO QAM #90 tabs 02/22/22 08/23/23 Rx release atorvastatin 80 mg tablet (Lipitor) 80 mg PO DAILY #30 tabs 02/22/22 08/23/23 Rx polyethylene glycol 3350 17 17 g PO DAILY #119 grams 02/22/22 Rx gram/dose oral powder (Miralax) sennosides 8.6 mg tablet (senna) 17.2 mg (2 x 8.6 mg) PO DAILY #60 02/22/22 Rx tabs amlodipine 5 mg tablet 5 mg PO DAILY 08/23/23 08/23/23 History Past Med/Surg History Medical History (Updated 08/23/23 @ 11:18 by Kristian Deal PA-C) H/O: stroke History of hemorrhagic cerebrovascular accident (CVA) with residual deficit Unwitnessed fall GERD (gastroesophageal reflux disease) Hyperlipidemia Hypertension No significant past medical history Surgical History No pertinent past surgical history Family History Other No pertinent family history in first degree relatives Social History Smoking Status: Never smoker Second Hand Exposure: No; Do You Dip or Chew Tobacco: Yes; Hx Alcohol Use: No Hx Substance Use: No Preferred Language: Zambian Communication Ability: Impaired Measurement And Sensing Technician Required: No Beliefs That Will Affect Care: None marital status: Life Partner Current Living Situation: Significant Other Feels Safe at Home: Yes Assistive Devices: None Review of Systems Review of Systems: See HPI above Physical Exam Physical Exam: General: no acute distress; non-toxic appearing; 95% SPO2 on RA; dry cough throughout exam; well-nourished; cooperative HEENT: normocephalic, atraumatic; no scleral icterus; PERRLA w/ EOMs intact; moist mucus membrane; vision and hearing grossly intact Neck: supple; no lymphadenopathy; trachea midline Skin: warm, dry without signs of tenting; no cyanosis; no rashes, bruising, lesions, or erythema noted CV: chest wall NTP; RRR; S1/S2 normal; no murmurs/rubs/gallops; pulses intact and symmetric at radial, DP, and PT Lungs: no acute respiratory distress; symmetrical chest wall expansion; clear breath sounds across all lung weeks w/o adventitious sounds; no wheezing ABD: Soft, NTP; BS present; negative CVA tenderness MSK: no tics or fasciculations; no edema noted in the LEs b/l; +5/5 tap builder strength B/L; full active ROM of LEs without pain; +5/5 strength in LEs at the hip, knee, ankle; patient demonstrates ability to wiggle toes, dorsiflex, plantarflex without difficulty Neuro: A&Ox3; normal mood and affect; fluent speech; sensation grossly intact in the LEs b/l Results & Data Results & Data Vital Signs (Past 12 Hours) Vital Signs Temp Pulse Resp BP Pulse Ox O2 Del Method 08/23/23 09:00 74 15 131/71 93 Room Air 08/23/23 08:30 76 24 137/59 L 92 Room Air 08/23/23 08:00 78 21 125/75 93 Room Air 08/23/23 07:53 82 20 93/69 L 93 Room Air 08/23/23 07:41 77 08/23/23 06:49 37.4 C 91 H 22 118/74 93 Room Air Laboratory Results Abnormal lab results 08/23/23 08/23/23 Range/Units 06:45 07:55 WBC 13.47 H (4.8-10.8) K/ul MPV 8.5 L (9.4-12.4) fL Neut # (Auto) 10.10 H (1.40-6.50) K/uL [place] # (Auto) 1.40 H (0.11-0.59) K/uL Creatinine 1.45 H (0.6-1.4) mg/dl BUN/Creatinine Ratio 9.7 L (10-20) Glucose 142 H (70-99(Fasting)) mg/dl Total Bilirubin 2.2 H (0.2-1.0) mg/dl SARS-CoV-2 (PCR) POSITIVE A* (Negative) Diagnostic Findings Head CT 08/23/23 06:50 CT SCAN OF THE BRAIN WITHOUT IV CONTRAST CLINICAL HISTORY: Fall. COMPARISON STUDY: CT of the brain dated 02/15/2022 TECHNIQUE: Unenhanced axial CT scan of the brain is performed from the vertex to the skull base. A dose lowering technique was utilized adhering to the principles of ALARA. CT DOSE: 625.8 mGy.cm FINDINGS: Brain parenchyma: There is age-related involutional change noting moderate patchy subcortical and periventricular microangiopathic disease. There is no hemorrhage, mass effect, or evidence of acute territorial ischemia by CT criteria. Chronic lacunar infarcts are noted in both thalami. Mcneal-white matter differentiation is preserved. No extra-axial fluid collection is seen. Ventricles, sulci, cisterns: Prominent secondary to involutional change. Intracranial vasculature: There is atherosclerotic calcification of the cavernous carotid and vertebral arteries. Calvarium: The skeletal structures are osteopenic. No depressed calvarial fracture is seen. Sinuses and mastoids: Mild mucosal thickening is seen within the left maxillary antrum with an air-fluid level. There is moderate mucosal thickening in the right sphenoid sinus. Trace mucosal thickening is seen within the left sphenoid sinus. There is a left mastoid effusion. The right mastoid air cells are well pneumatized. Orbits: The bony orbits are grossly intact. IMPRESSION: There is no hemorrhage, mass effect, or evidence of acute territorial ischemia by CT criteria. ACT 112: Negative or not required by law. Electronically signed by: Moses Vega M.D. 08/23/2023 8:07 AM Chest X-Ray 08/23/23 08:30 SINGLE VIEW CHEST CLINICAL HISTORY: Generalized weakness. FINDINGS: An AP, portable, upright chest radiograph is compared to study dated 02/15/2022. The heart is enlarged noting atherosclerotic calcification of the thoracic aorta. The pulmonary vasculature is noncongested. Chronic interstitial thickening is similar to previous. Mild atelectasis is noted at the lung bases. The lungs and pleural spaces are otherwise clear. No pneumothorax is seen. The skeletal structures are osteopenic. The bony thorax is grossly intact. IMPRESSION: Cardiomegaly with no active disease in the chest. ACT 112: Negative or not required by law. Electronically signed by: Moses Vega M.D. 08/23/2023 8:43 AM Code Status & VTE Plan Code Status DNR/DNI VTE Prophylaxis Plan VTE Prophylaxis will be ordered: Yes Supervising Physician Co-Signing Physician Notes Patient seen and examined, chart reviewed, case discussed with Kristian Deal PA-C and I agree with the assessment and plan as above except as otherwise noted Labs and images reviewed 72-year-old male with history of hemorrhagic stroke, hypertension, GERD, GI bleed who presents with weakness and COVID-positive. He is not hypoxic. Due to his weakness has increased care requirements and family is unable to assist him with his daily living with his current needs. Is recommended for admission for COVID treatment and PT/OT. He is not hypoxic and steroid/remdesivir not indicated. No signs of heart failure. No new neurologic deficits, although overall strength is worse with COVID. Lungs are clear to auscultation, heart rate is regular. Agree with PT/OT. Goal SPO2 greater than 90-94%. Due to history of hemorrhagic stroke and GIB patient reports he is not able to be on DVT prophylaxis. We will continue SCDs, pharmacologic prophylaxis deferred. Agree with assessment and management above PG Care Time/CCT Total # of Minutes Spent Total Time Spent with Patient: Total time spent is greater than 50% in coordination of care (as documented) at patient's floor/unit and/or counseling patient: C[place] [address] INT INP/OBS CARE 2/55MIN Patient Type Established History Comprehensive Exam Comprehensive Medical Decision Making Moderate Complexity Diagnoses Ground-level fall W18.30XA COVID-19 U07.1 ANDERS (acute kidney injury) N17.9 Generalized weakness R53.1 History of hemorrhagic cerebrovascular accident (CVA) with residual deficit I69.30 Hypertension I10 GERD (gastroesophageal reflux disease) K21.9 Hyperlipidemia E78.5
[2023-08-23 10:57] LABS: Appearance Urine Clear (Clear); Bilirubin Urine Negative (Negative); Blood Urine Negative (Negative); Color Urine Yellow; Glucose Urine UA Negative (Negative); Ketones Urine Negative (Negative); Leukocyte Esterase Urine Negative (Negative); Nitrite Urine Negative (Negative); Protein Urine Negative (Negative); Specific Gravity Urine 1.012 (1.000-1.030); Urobilinogen Urine Negative (Negative)
[2023-08-23] MEDS ORDERED: ASPIRIN 81 MG ECTAB PO STA (10:57)
[2023-08-23] MEDS ORDERED: amLODIPine BESYLATE 5 MG TAB PO ONE (10:59)
[2023-08-23] MEDS ORDERED: ATORVASTATIN 40 MG TAB PO ONE (10:59)
[2023-08-23] MEDS ORDERED: PANTOprazole 40 MG TAB PO STA (10:59)
[2023-08-23] MEDS ORDERED: ACETAMINOPHEN 325 MG TAB PO PRN (11:28)
[2023-08-23] MEDS ORDERED: HEPARIN SOD 5,000 UNIT/0.5 ML VIAL SQ SCH (14:00)
--- NOTE | 2023-08-23 16:04 | Electrocardiogram Report ---
Test Reason : Blood Pressure : / mmHG Vent. Rate : 090 BPM Atrial Rate : 090 BPM P-R Int : 156 ms QRS Dur : 076 ms QT Int : 338 ms P-R-T Axes : 017 -29 -08 degrees QTc Int : 413 ms Normal sinus rhythm Poor R wave progression, consider anterior PR vs. lead placement vs. LVH Abnormal ECG When compared with ECG of 15-FEB-2022 11:08, No significant change was found Confirmed by Edwin Shannon ([id number]) on 08/23/2023 4:04:24 PM Referred By: REFERRED SELF Confirmed By:Edwin Shannon
[2023-08-23] MEDS ORDERED: MICONAZOLE NITRATE POWDER 85 GM EXT PRN (22:26)
[2023-08-24] MEDS: PANTOprazole 40 MG TAB PO SCH (08:24)
[2023-08-24] MEDS: ASPIRIN 81 MG ECTAB PO SCH (08:24)
[2023-08-24] MEDS: ATORVASTATIN 40 MG TAB PO SCH (08:24)
[2023-08-24] MEDS: amLODIPine BESYLATE 5 MG TAB PO SCH (08:24)
[2023-08-24 08:30] LABS: Basophils # (auto) 0.06 K/uL (0.00-0.20); Basophils % (auto) 0.7 %; Eosinophils # (auto) 0.08 K/uL (0.00-0.50); Eosinophils % (auto) 0.9 %; Hematocrit (blood only) 39.6 % (42.0-52.0); Hemoglobin 13.2 g/dl (14.0-18.0); Immature Granulocytes # (auto) 0.02 K/uL (0.01-0.20); Immature Granulocytes % (auto) 0.2 %; Lymphocytes # (auto) 1.73 K/uL (1.20-3.40); Lymphocytes % (auto) 19.5 %; Mean Corpuscular Hemoglobin 29.3 pg (25.0-34.0); Mean Corpuscular Hgb Conc 33.3 g/dL (32.0-36.0); Mean Platelet Volume 8.4 fL (9.4-12.4); Monocytes # (auto) 1.35 K/uL (0.11-0.59); Monocytes % (auto) 15.2 %; Neutrophils # (auto) 5.62 K/uL (1.40-6.50); Neutrophils % (auto) 63.5 %; Platelet Count 236 K/uL (130-400); RDW Coefficient of Variation 13.9 % (11.5-14.5); RDW Standard Deviation 45.1 fL (36.4-46.3); White Blood Count 8.86 K/ul (4.8-10.8)
[2023-08-24 08:47] LABS: BUN Creatinine Ratio 11.4 (10-20); Calcium 8.5 mg/dl (8.6-10.3); Creatinine Clr Calc Pharmacy 58.6 ml/min; Est GFR (African American) 67.6 ml/min; Est GFR (Non-African American) 58.3 ml/min; Potassium 3.8 mmol/L (3.5-5.1)
[2023-08-24] MEDS: dexAMETHasone 6 MG in SYRINGE 0 ML IV SCH (12:31)
--- NOTE | 2023-08-24 15:32 | Hospitalist Progress Note ---
Date of Service August 24, 2023 Assessment & Plan (1) Ground-level fall: Plan: Occurred on morning of 08/23. Patient denies dizziness; says he "lost his footing" No head strike; no LOC; no tripping; no blood thinners Hx of falls over the past year, with right-sided hemiparesis since CV[place] [address] with old strokes but nothing acute Glucose 142 on arrival EKG NSR UA negative Likely due to weakness from COVID-19 infection Fall [address] PT/OT consulted-recommends rehab but he declines this (2) COVID-19: Plan: COVID+ here with midl cough and weakness with fall POx 91-94% on RA--> start decadron and Remdesevir CXR no PNA Leukocytosis at 13.47 with a neutrophil predominance now improved, likely from stress response from fall and not bacterial infection SUpportive care otherwise (3) ANDERS (acute kidney injury): Plan: Mild-BUN 14, Cr 1.45 (last baseline 1.05), EGFR 47.8 Handcrew Foreman now down to 1.2 -Avoid nephrotoxins -renally dose meds when appropriate -follow BMP (4) Generalized weakness: Plan: Started morning of 08/23 Likely secondary to COVID infection Improving, PT/OT consults (5) History of hemorrhagic cerebrovascular accident (CVA) with residual deficit: Plan: Right cerebellar hemorrhage in May 2006-could not find details on this as far as cause, etc. Continue aspirin daily No signs of active bleeding Given this hx, we will defer chemical DVT PPx at this time (6) Hypertension: Plan: Continue amlodipine BPs controlled (7) GERD (gastroesophageal reflux disease): Plan: Continue pantoprazole (8) Hyperlipidemia: Plan: Continue atorvastatin (9) Hyperbilirubinemia: Plan: TBili 2.2 on admission, with previous elevated TBili with normal DBili Likely Gilbert's no need to follow Plan DVT proph-add SCDs, avoid Lovenox as unclear history of hemorrhagic CVA Dispo-continued stay but possible dc to home in 1-2 days vs rehab Admission and Anticipated Discharge Date Admission Date: August 23, 2023 Subjective Pt reports feeling fine. Has a mild cough, no SOB. Wants to know when he can be discharged and says he would not want to go to a rehab. Physical Exam Constitutional: WD/WN, vitals as above Neck: trachea midline, no thyromegaly Respiratory: normal respiratory effort, lungs clear to auscultation Cardiovascular: RRR, no murmur, no edema Chest (Breasts): Chest: normal inspection of chest Gastrointestinal (Abdomen): normal bowel sounds, soft, nontender, no hepatosplenomegaly Musculoskeletal: Extremities: extremities normal to inspection; no cyanosis and no clubbing Skin: no rashes, warm and dry Neurologic: moves all extremities and awake; no focal motor deficits Psychiatric: A+Ox3, euthymic affect Lymphatic: no lymphedema Results & Data Results & Data Vital Signs (Past 12 Hours) Vital Signs Temp Pulse Resp BP Pulse Ox Pulse Ox O2 Del Method 08/24/23 14:51 93 08/24/23 08:16 36.5 C 77 16 133/70 92 Room Air Laboratory Results CBC, BMP reviewed PG Care Time/CCT Total # of Minutes Spent Total Time Spent with Patient: Total time spent is greater than 50% in coordination of care (as documented) at patient's floor/unit and/or counseling patient: Coding Level of Care Code 45609 SUB INP/OBS CARE 2/35MIN Diagnoses Ground-level fall W18.30XA COVID-19 U07.1 ANDERS (acute kidney injury) N17.9 Generalized weakness R53.1 History of hemorrhagic cerebrovascular accident (CVA) with residual deficit I69.30 Hypertension I10 GERD (gastroesophageal reflux disease) K21.9 Hyperlipidemia E78.5 Hyperbilirubinemia E80.6
[2023-08-24] MEDS ORDERED: REMDESIVIR 200 MG in SODIUM CHLORIDE 0.9% 210 ML IV STA (23:33)
[2023-08-25 07:50] LABS: Basophils # (auto) 0.01 K/uL (0.00-0.20); Basophils % (auto) 0.1 %; Hematocrit (blood only) 40.5 % (42.0-52.0); Hemoglobin 13.3 g/dl (14.0-18.0); Immature Granulocytes # (auto) 0.02 K/uL (0.01-0.20); Immature Granulocytes % (auto) 0.3 %; Lymphocytes # (auto) 1.46 K/uL (1.20-3.40); Lymphocytes % (auto) 20.5 %; Mean Corpuscular Hemoglobin 29.5 pg (25.0-34.0); Mean Corpuscular Hgb Conc 32.8 g/dL (32.0-36.0); Mean Corpuscular Volume 89.8 fL (80.0-100.0); Mean Platelet Volume 8.7 fL (9.4-12.4); Monocytes # (auto) 0.82 K/uL (0.11-0.59); Monocytes % (auto) 11.5 %; Neutrophils # (auto) 4.81 K/uL (1.40-6.50); Neutrophils % (auto) 67.6 %; Platelet Count 251 K/uL (130-400); RDW Coefficient of Variation 13.4 % (11.5-14.5); RDW Standard Deviation 44.3 fL (36.4-46.3); Red Blood Count 4.51 M/uL (4.70-6.10); White Blood Count 7.12 K/ul (4.8-10.8)
[2023-08-25] MEDS: ATORVASTATIN 40 MG TAB PO SCH (08:29)
[2023-08-25] MEDS: ASPIRIN 81 MG ECTAB PO SCH (08:29)
[2023-08-25] MEDS: PANTOprazole 40 MG TAB PO SCH (08:30)
[2023-08-25] MEDS: amLODIPine BESYLATE 5 MG TAB PO SCH (08:30)
[2023-08-25 08:38] LABS: Albumin Level 3.6 gm/dl (3.4-5.0); BUN Creatinine Ratio 17.8 (10-20); Bilirubin Direct 0.2 mg/dl (0-0.2); Bilirubin,Total 1.1 mg/dl (0.2-1.0); Creatinine Clr Calc Pharmacy 67.4 ml/min; Potassium 4.5 mmol/L (3.5-5.1); Total Protein 6.6 gm/dl (6.0-8.3)
[2023-08-25] MEDS: dexAMETHasone 6 MG in SYRINGE 0 ML IV SCH (11:51)
--- NOTE | 2023-08-25 14:36 | Discharge Summary ---
Discharge Summary Date of Service August 25, 2023 Notes For Next Care Provider Medication Changes From Visit dexamethasone 6mg po daily x 3 more days Admission HPI Per Admitting Provider Arpit is a 72-year-old male with PMH of multiple CVAs, depression, GERD, HTN, and HLD. He presented via EMS for confusion and a GL fall at home on the morning of 08/23. Patient reports he "lost his footing" when returning from the bathroom this morning at 0510. He denies dizziness/tripping/LOC. Patient lives in a trailer home with his (Leslie) and grandson, and was found on the gr ound by his with new onset confusion after the fall. Patient also reports he had trouble getting out of bed this morning due to generalized LE weakness. No head strike. No blood thinners. No LOC. Hx of falls; unwitnessed fall and acute CVA/TIA in 02/2022. Patient endorses a dry cough since yesterday, and numbness and tingling in the R arm/leg this morning. BSG WNL on arrival. Patient tested positive for COVID on arrival, but clinically denies SOB or pleuritic CP. He is not up-to-date with COVID vaccines or boosters. He did not have his flu shot this year. His grandson, who he lives with, works in a group home. While he denies sick contacts, his reports coughing/sneezing since 08/17, but tested negative for COVID on Tuesday 08/21. Patient did not taken his morning medications (will be given in the ED). Patient's vital signs were stable at time of admission. ED course: IVF ROS: Patient endorses clammy / sweating this morning, dry cough since yesterday, sn eezing, and numbness / tingling in R arm and leg. Patient denies fever, PRASAD, dizziness, lightheadedness, difficulty swallowing, slurred speech, facial droop, vision changes, loss of taste or smell, hem optysis, CP, pleuritic CP, SOB, abdominal pain, N/V/D, urinary symptoms, burning with urination, or pain/swelling in the legs. No PMHx of [place], DVT/PE, COPD, asthma, cancer, or diabetes. History of R-sided cerebral hemorrhage in 2005 Patient reports residual right-sided weakness, and limp since stroke Social hx: He denies current tobacco cigarette smoking; denies vaping Endorses using chewing tobacco Alcohol use; occasional; 2 drinks/week He denies other recreational drug use Please see Dr. Potts's attestation for any changes to treatment plan. Principal Dx & Hospital Course #1 = Principal Diagnosis (1) Ground-level fall: Occurred on morning of 08/23. Patient denies dizziness; says he "lost his footing" No head strike; no LOC; no tripping; no blood thinners Hx of falls over the past year, with right-sided hemiparesis since CVA [place] [address] with old strokes but nothing acute Glucose 142 on arrival EKG NSR UA negative Likely due to weakness from COVID-19 infection PT/OT consulted-initially recommending rehab but stronger by the day of discharge and now recommended to go home and use rolling walker-pt has this at home but does not use it as per -encouraged use (2) COVID-19: COVID+ here with midl cough and weakness with fall POx 91-94% on RA--> started decadron and Remdesevir-received 2 doses CXR no PNA Leukocytosis at 13.47 with a neutrophil predominance now improved, likely from stress response from fall and not bacterial infection SUpportive care otherwise dc to home with 3 more days of decadron (3) ANDERS (acute kidney injury): Mild-BUN 14, Cr 1.45 (last baseline 1.05), EGFR 47.8 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 Continue aspirin daily No signs of active bleeding Given this hx, we will defer chemical DVT PPx at this time (6) Hypertension: Continue amlodipine BPs controlled (7) GERD (gastroesophageal reflux disease): Continue pantoprazole (8) Hyperlipidemia: Continue atorvastatin (9) Hyperbilirubinemia: TBili 2.2 on admission, with previous elevated TBili with normal DBili down to 1.1 on discharge day Likely Gilbert's no need to follow Plan DVT proph- SCDs, avoid Lovenox as unclear history of hemorrhagic CVA Dispo-dc to home with home health Spoke to on phone on day of discharge Discharge Exam Constitutional WD/WN, vitals as above Neck trachea midline, no thyromegaly Respiratory normal respiratory effort, lungs clear to auscultation Cardiovascular RRR, no murmur, no edema Chest (Breasts) Chest: normal inspection of chest Gastrointestinal (Abdomen) normal bowel sounds, soft, nontender, no hepatosplenomegaly Musculoskeletal Extremities: extremities normal to inspection; no cyanosis and no clubbing Skin no rashes, warm and dry Neurologic moves all extremities and awake; no focal motor deficits Psychiatric A+Ox3, euthymic affect Lymphatic no lymphedema Updated Medication List Medication Instructions Recorded Confirmed Type multivitamin 1 tab PO QAM 12/19/19 08/23/23 History pantoprazole 40 mg tablet,delayed 40 mg PO DAILY 12/19/19 08/23/23 History release acetaminophen 500 mg tablet 500 mg PO Q6H PRN Pain 12/20/19 12/20/19 History aspirin 81 mg tablet,delayed 81 mg PO QAM #90 tabs 02/22/22 08/23/23 Rx release atorvastatin 80 mg tablet (Lipitor) 80 mg PO DAILY #30 tabs 02/22/22 08/23/23 Rx polyethylene glycol 3350 17 17 g PO DAILY #119 grams 02/22/22 Rx gram/dose oral powder (Miralax) sennosides 8.6 mg tablet (senna) 17.2 mg (2 x 8.6 mg) PO DAILY #60 02/22/22 Rx tabs amlodipine 5 mg tablet 5 mg PO DAILY 08/23/23 08/23/23 History dexamethasone 6 mg tablet 6 mg PO DAILY #3 tabs 08/25/23 Rx Hospital Stay Data Consultations 08/23/23 10:02 ED Decision to Admit Stat Diagnostic Imagining Performed 08/23/23 06:50 CT head/brain wo con Stat Pending Results Patient Have Any Pending Studies at Discharge: No Discharge Instructions Given to Patient (Per Discharging Provider) Please finish out 3 more days of the steroid called dexamethasone for your cough. It was recommended for you to go to rehab initially but you are doing better with your strength and physical therapy said it is safe for you to go home but YOU MUST USE YOUR WALKER for safety with walking at home. Total Time Total Time Spent Total Time Spent (In Minutes): 35 min Coding Level of Care Code 70301 INP/OBS DISCH >30 MIN Diagnoses Ground-level fall W18.30XA COVID-19 U07.1 ANDERS (acute kidney injury) N17.9 Generalized weakness R53.1 History of hemorrhagic cerebrovascular accident (CVA) with residual deficit I69.30 Hypertension I10 GERD (gastroesophageal reflux disease) K21.9 Hyperlipidemia E78.5 Hyperbilirubinemia E80.6
[2023-08-25] MEDS ORDERED: REMDESIVIR 100 MG in SODIUM CHLORIDE 0.9% 230 ML IV SCH (20:00)
== END 2023-08-25 18:29 | disposition home health service (06) | DRG 178 ==
LOC: ED 06:42 → SUATTDRO 10:56 → EDINP 10:56 → 3N 11:28

== ENCOUNTER 2024-10-18 13:33 | Inpatient (IN) ==
--- NOTE | 2024-10-18 14:41 | CT Scan Report ---
CT OF THE HEAD WITHOUT CONTRAST CLINICAL HISTORY: Neuro deficit, acute, stroke suspected COMPARISON STUDY: MRI of the brain February 15, 2022. Head CT August 23, 2023. CT DOSE: 625.8 mGy.cm TECHNIQUE: Helical axial images of the head were obtained without IV contrast. Automated exposure con trol was utilized for the study. A dose lowering technique was utilized adhering to the principles o f ALARA. FINDINGS: No acute intracranial hemorrhage, midline shift or mass effect is present. The ventricular system is stable. White matter hypodensities are unchanged and favor small vessel disease. The basal cisterns are patent. No extra-axial collections are present. There are no findings to suggest acute d ural sinus thrombosis or acute territorial infarct. Old bilateral thalamic infarcts are unchanged. A small amount of fluid within the left mastoid air cells is unchanged. IMPRESSION: No acute intracranial findings. No change in appearance of the brain. ACT 112: Negative or not required by law. Electronically signed by: Drake Ryan M.D. 10/18/2024 2:39 PM
--- NOTE | 2024-10-18 15:31 | Electrocardiogram Report ---
Test Reason : Blood Pressure : */* mmHG Vent. Rate : 70 BPM Atrial Rate : 70 BPM P-R Int : 140 ms QRS Dur : 72 ms QT Int : 384 ms P-R-T Axes : 1 -31 1 degrees QTcB Int : 414 ms Normal sinus rhythm Left axis deviation Abnormal ECG When compared with ECG of 23-Aug-2023 06:51, No significant change was found Confirmed by Edwin Shannon ([id number]) on 10/18/2024 3:30:32 PM Referred By: Confirmed By: Edwin Shannon
[2024-10-18 15:58] LABS: iSTAT Creatinine 1.3 mg/dl (0.6-1.3); iSTAT Ionized Calcium 1.19 mmol/l (1.12-1.32)
[2024-10-18 16:00] LABS: Hematocrit (blood only) 44.8 % (42.0-52.0); Hemoglobin 14.9 g/dl (14.0-18.0); Mean Corpuscular Hemoglobin 29.4 pg (25.0-34.0); Mean Corpuscular Hgb Conc 33.3 g/dL (32.0-36.0); Mean Corpuscular Volume 88.4 fL (80.0-100.0); Mean Platelet Volume 8.4 fL (9.4-12.4); Platelet Count 333 K/uL (130-400); RDW Coefficient of Variation 13.9 % (11.5-14.5); RDW Standard Deviation 44.6 fL (36.4-46.3); Red Blood Count 5.07 M/uL (4.70-6.10); White Blood Count 13.56 K/ul (4.8-10.8)
[2024-10-18 16:17] LABS: Albumin Globulin Ratio 1.4 (0.9-2); Albumin Level 4.2 gm/dl (3.4-5.0); Bilirubin,Total 5.2 mg/dl (0.2-1.0); Calcium 9.3 mg/dl (8.6-10.3); Magnesium 2.1 mg/dl (1.7-2.4); Total Protein 7.2 gm/dl (6.0-8.3)
--- NOTE | 2024-10-18 16:30 | Emergency Department Note ---
Impression & Plan Right leg weakness, Abnormal LFTs, Dehydration ED Provider Note ED Provider Note NAME: DOMO YODER AGE:73 SEX: Male : 1950 ARRIVES VIA: EMS INFORMANT: Patient ED PROVIDER(s): Ruma Agustin DO CHIEF COMPLAINT: Strokelike symptoms HPI: This is a 73-year-old male presents via EMS after family was concerned for increased weakness, fatigue, and difficulty walking. states patient got up early this morning around 730 and went to the bathroom. She states after some time he did not come out and she went and to see if he was okay. She states he was unable to stand up off the toilet on his own and when she assisted him in doing so he felt very shaky. She helped him walk back out to their couch and he sat down. She went to work and left him at home with her grandson. She states around [phone] she got a call from her grandson that he had not gotten up to take his medications or eat and still seem very somnolent. She states she returned home. She states when trying to help get him up it appeared that he was dragging his right foot. He does have chronic right-sided weakness from a prior stroke however this appeared worse compared to normal. She states due to concern and his increased weakness and fatigue they contacted 911. states she was concerned as he was less responsive, seemed confused, and also that his pupils did not seem as reactive. She states upon EMS arrival they noted his blood sugar was normal however he was hypotensive but his pupils are reactive again. Patient states he remembers sitting down on the couch after being in the bathroom, remembers his checking him when she returned home and then remembers the ambulance crew. He does not remember first getting up this morning. He denies any headaches, dizziness, vision changes, chest pain, difficulty breathing, or abdominal pain. He denies any recent change in medications or illness. He does take low-dose aspirin daily. PAST MEDICAL HISTORY:See Below PAST SURGICAL HISTORY:See Below FAMILY HISTORY:See Below SOCIAL HISTORY:See Below HOME MEDICATIONS:See Below ALLERGIES:See Below VITALS:See Below PHYSICAL EXAMINATION: GENERAL: alert, well appearing, well nourished, no distress, non-toxic EYE EXAM: normal conjunctiva, PERRL and EOM's grossly intact OROPHARYNX: no exudate, no erythema, lips, buccal mucosa, and tongue normal and mucous membranes are moist NECK: supple, no nuchal rigidity, no adenopathy, non-tender LUNGS: Clear to auscultation. Normal chest wall mechanics, no w/r/r HEART: no murmurs, S1 normal and S2 normal ABDOMEN: abdomen soft, non-tender, normo-active bowel sounds, no masses, no rebound or guarding. SKIN: no rashes, petechiae, orbruising UPPER EXTREMITIES: upper extremities are grossly normal. FROM, nml pulses b/l. Right upper extremity fatigues more easily with testing, mild muscular atrophy noted LOWER EXTREMITIES: No pitting edema. FROM, nml pulses b/l. NEURO EXAM: Normal sensorium, cranial nerves II-XII grossly intact, normal speech, no facial droop,nogross weakness of arms, no gross weakness of legs. Gross sensation intact. No ataxia. Vital Signs: reviewed and remarkable Differential Diagnosis: ischemic Stroke, hemorrhagic stroke, bells palsy, mass, neoplasm, migraine headache, seizure, subarachnoid hemorrhage, TIA, transient global amnesia, medication ADR, as well as others were considered MEDICAL DECISION MAKING: This is a 73-year-old male presents emerged department with family bedside due to concern for increased fatigue and worsening right-sided weakness. Patient with prior history of CVA and TIA. He does have chronic right-sided deficits although they felt today the right side was worse compared to normal. Patient was afebrile and hemodynamically stable on arrival. Labs drawn and sent, IV established, EKG and chest ray performed at bedside interpreted me and patient monitored on telemetry once placed in a regular patient room. He was started on IV fluids and sent for further CT imaging. I initially evaluated the patient in a waiting room area as he presented 1 day of high volume and acuity, some orders had been started per protocol by nursing staff. Patient noted to have elevated LFTs although denied abdominal pain, nausea or vomiting. In consideration of the differential diagnosis and comorbidities, he was sent for ultrasound imaging. Ultrasound revealed cholelithiasis and possible evolving cholecystitis. Due to abnormal LFTs and concern for choledocholithiasis patient sent for MRCP. CT/CTA been negative for acute CVA however given extensive history, patient sent for MRI brain additionally. Patient remained well- appearing while monitored on telemetry here and was continued on IV fluids. He was given IV Pepcid and IV Protonix for complaints of reflux. He had no worsening or evolving neurologic symptoms. Due to concern for leukocytosis and elevated procalcitonin while awaiting the abdominal imaging, he was given IV antibiotics as a precaution. Nasal swab was negative for acute viral respiratory illness. Due to concern for possible occult infectious etiology as well as unclear etiology of the abnormal LFTs with findings on imaging suggestive of possible evolving cholecystitis, case discussed with the hospitalist team for additional evaluation and management. Patient had no abdominal pain on my initial as well as subsequent repeat examinations. Consultation(s): 2330: Discussed with Dr. Mills, [facility] hospitalist team, for additional evaluation and management. ER Treatment Provided: See below Diagnostics Interpreted By Me: -ECG: Normal sinus at 70, leftward axis, normal intervals, nonspecific ST/T wave changes -Cardiac Monitoring: An order was placed for continuous cardiac monitoring. The monitor shows a rate of 66 with normal sinus rhythm. -Laboratory studies: As stated above and show below. -Imaging studies: X-ray Chest: A single view study of the chest was reviewed and was negative for cardiomegaly, focal infiltrate, effusion, pulmonary edema, or wide mediastinum. Triage Nursing Note Reviewed Prior/Outside Records Reviewed Past Med/Surg History Problem List (Updated 10/19/24 @ 14:27 by Ruma Agustin DO) Dehydration (Acute) Abnormal LFTs (Acute) History of hemorrhagic cerebrovascular accident (CVA) with residual deficit Confusion Abnormal LFTs Abnormal abdominal CT scan Right leg weakness (Acute) Hyperbilirubinemia Ground-level fall COVID-19 (Acute) Occlusion of posterior cerebral artery Acute cerebrovascular accident (CVA) Depression as late effect of cerebrovascular accident (CVA) GERD (gastroesophageal reflux disease) Acute respiratory failure with hypoxia Pneumonia (Acute) Hypoxia (Acute) Kidney stones Acute upper GI bleeding Medical History (Updated 10/19/24 @ 14:27 by Ruma Agustin DO) H/O: stroke Unwitnessed fall Hyperlipidemia Hypertension No significant past medical history Surgical History No pertinent past surgical history Family History Other No pertinent family history in first degree relatives Social History Smoking Status: Never smoker Second Hand Exposure: No; Do You Dip or Chew Tobacco: No; Hx Alcohol Use: No Hx Substance Use: No Preferred Language: Beninese Communication Ability: Effective 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 Beliefs That Will Affect Care: None marital status: Life Partner Current Living Situation: Family Other Information That Helps Us Care for You: No Feels Safe at Home: Yes Safety Concerns: Feels Safe At This Time Assistive Devices: None Allergies Allergies Allergy/AdvReac Type Severity Reaction Status Date / Time sertraline Allergy Intermediate HIVES Verified 10/18/24 18:02 Penicillins Allergy Mild HIVES Verified 10/18/24 18:02 strawberry Allergy Unknown HIVES Verified 10/18/24 18:02 Home Meds Home Medications Medication Instructions Recorded Confirmed pantoprazole 40 mg tablet,delayed 40 mg PO DAILY 12/19/19 10/18/24 release acetaminophen 500 mg tablet 500 mg PO Q6H PRN Pain 12/20/19 10/18/24 amlodipine 5 mg tablet 5 mg PO DAILY 08/23/23 10/18/24 Previous Rx's Medication Instructions Recorded aspirin 81 mg tablet,delayed 81 mg PO QAM #90 tabs 02/22/22 release atorvastatin 80 mg tablet (Lipitor) 80 mg PO DAILY #30 tabs 02/22/22 Results & Data (ED) Vital Signs Vital Signs - 24 hr 10/18/24 16:08 10/18/24 16:54 10/18/24 18:00 Pulse Rate 63 Pulse Rate [Apical] 77 67 Pulse Rhythm [Apical] Regular Pulse Strength [Apical] Normal Respiratory Rate 16 18 24 Respiratory Effort / Characteristics Non-Labored Non-Labored Respiratory Depth Normal Normal Respiratory Pattern Regular Regular Blood Pressure [Right Arm] 112/63 130/68 Blood Pressure Mean [Right Arm] 79 88 Blood Pressure Position [Right Arm] Lying Lying Pulse Oximetry 93 95 92 Oxygen Delivery Method Room Air Room Air Room Air 10/18/24 20:26 10/18/24 22:03 10/18/24 22:36 Pulse Rate 68 Pulse Rate [Apical] 84 67 Pulse Rhythm [Apical] Pulse Strength [Apical] Respiratory Rate 18 18 Respiratory Effort / Characteristics Non-Labored Spontaneous Non-Labored Spontaneous Respiratory Depth Normal Normal Respiratory Pattern Regular Regular Blood Pressure [Right Arm] 124/66 126/66 Blood Pressure Mean [Right Arm] 85 86 Blood Pressure Position [Right Arm] Pulse Oximetry 95 94 Oxygen Delivery Method Room Air Room Air Laboratory Data 10/19/24 04:45 10/19/24 04:45 Lab Results 10/18/24 10/18/24 10/18/24 Range/Units 15:35 15:46 16:43 WBC 13.56 H (4.8-10.8) K/ul RBC 5.07 (4.70-6.10) M/uL Hgb 14.9 (14.0-18.0) g/dl POC Hgb 16.0 (14.0-18.0) g/dl Hct 44.8 (42.0-52.0) % POC Hct 47 (42-52) % MCV 88.4 (80.0-100.0) fL MCH 29.4 (25.0-34.0) pg MCHC 33.3 (32.0-36.0) g/dL RDW Std Deviation 44.6 (36.4-46.3) fL RDW Coeff of Alvaro 13.9 (11.5-14.5) % Plt Count 333 (130-400) K/uL MPV 8.4 L (9.4-12.4) fL PT 11.4 (9.0-12.0) Seconds INR 1.1 (0.9-1.1) APTT 27 (21-31) Seconds PTT Ratio 1.0 POC Sodium 138 (135-144) mmol/L Sodium 137 (136-145) mmol/L POC Potassium 4.0 (3.3-5.0) mmol/L Potassium 4.0 (3.5-5.1) mmol/L POC Chloride 105 (101-112) mmol/L Chloride 106 (98-107) mmol/L Carbon Dioxide 24 (21-32) mmol/L POC Total CO2 21 L (24-31) mmol/L Anion Gap 7 (3-11) POC Anion Gap 17.0 (16-25) mmol/L POC BUN 13 (7-18) mg/dl BUN 14 (6-23) mg/dl Creatinine 1.27 (0.6-1.4) mg/dl POC Creatinine 1.3 (0.6-1.3) mg/dl Est Cr Clr Drug Dosing 53.0 ml/min eGFR 59.65 BUN/Creatinine Ratio 11.0 (10-20) Glucose 114 H (70-99(Fasting)) mg/dl POC Glucose (other) 112 H (70-99) mg/dl Calcium 9.3 (8.6-10.3) mg/dl POC Ioniz Calcium Linda 1.19 (1.12-1.32) mmol/l Magnesium 2.1 (1.7-2.4) mg/dl Total Bilirubin 5.2 H (0.2-1.0) mg/dl AST 189 H (13-39) U/L ALT 267 H (7-52) U/L Alkaline Phosphatase 210 H (34-104) U/L Total Protein 7.2 (6.0-8.3) gm/dl Albumin 4.2 (3.4-5.0) gm/dl Globulin 3.0 (2.5-4.0) gm/dl Albumin/Globulin Ratio 1.4 (0.9-2) Procalcitonin 1.23 H (0-0.5) ng/ml Urine Color Dark Yellow Urine Appearance Clear (Clear) Urine pH 8.0 H (4.5-7.5) Ur Specific [place] 1.015 (1.000-1.030) Urine Protein Negative (Negative) Urine Glucose (UA) Negative (Negative) Urine Ketones Negative (Negative) Urine Blood Negative (Negative) Urine Nitrite Negative (Negative) Urine Bilirubin 1+ H (Negative) Urine Urobilinogen Positive H (Negative) Ur Leukocyte Esterase Negative (Negative) Adenovirus (PCR) Not Detected (NotDetected) B. pertussis DNA (PCR) Not Detected (NotDetected) B.parapertussis DNA PCR Not Detected (NotDetected) C. pneumoniae DNA (PCR) Not Detected (NotDetected) Coronavirus OC43 (PCR) Not Detected (NotDetected) Coronavirus HKU1 (PCR) Not Detected (NotDetected) Coronavirus 229E (PCR) Not Detected (NotDetected) SARS-CoV-2 (PCR) Not Detected (NotDetected) Coronavirus NL63 (PCR) Not Detected (NotDetected) Human Metapneumovir PCR Not Detected (NotDetected) Influenza Type A (PCR) Not Detected (NotDetected) Influenza Type B (PCR) Not Detected (NotDetected) M. pneumoniae (PCR) Not Detected (NotDetected) Parainfluenza 1 (PCR) Not Detected (NotDetected) Parainfluenza 2 (PCR) Not Detected (NotDetected) Parainfluenza 3 (PCR) Not Detected (NotDetected) Parainfluenza 4 (PCR) Not Detected (NotDetected) RSV (PCR) Not Detected (NotDetected) Entero/Rhino (PCR) Not Detected (NotDetected) Administered Medications Amlodipine Besylate (Amlodipine Besylate 5 Mg Tab) 5 mg PO QAM FANNY Stop: 11/18/24 11:59 Last Admin: 10/19/24 13:18 Dose: 5 mg Documented By: JANELL Sodium Chloride (Nss) 1,000 mls @ 125 mls/hr IV .Q8H FANNY Stop: 10/19/24 16:14 Last Admin: 10/19/24 10:13 Dose: 125 mls/hr Documented By: Infusion: 10/19/24 10:02 Dose: Infused Documented By: Admin: 10/19/24 02:02 Dose: 125 mls/hr Documented By: Infusion: 10/19/24 02:02 Dose: Infused Documented By: Admin: 10/18/24 16:46 Dose: 125 mls/hr Documented By: NICOLE Ciprofloxacin (Cipro / D5w) 400 mg in 200 mls @ 200 mls/hr IV Q12H FANNY; Protocol Stop: 10/28/24 23:44 Last Admin: 10/19/24 13:20 Dose: 200 mls/hr Documented By: JANELL Metronidazole (Flagyl) 500 mg in 100 mls @ 100 mls/hr IV Q8H FANNY; Protocol Stop: 10/29/24 07:59 Last Infusion: 10/19/24 11:28 Dose: Infused Documented By: Admin: 10/19/24 10:16 Dose: 100 mls/hr Documented By: JANELL Discontinued Medications Famotidine (Pepcid 20mg Iv Push) 20 mg in 5 mls @ 2.5 mls/min IV NOW STA Stop: 10/18/24 20:50 Last Admin: 10/18/24 20:57 Dose: 2.5 mls/min Documented By: ZACKARY Pantoprazole Sodium (Protonix) 40 mg in 10 mls @ 5 mls/min IV NOW ONE Stop: 10/18/24 20:50 Last Admin: 10/18/24 21:29 Dose: 5 mls/min Documented By: ZACKARY Cefepime HCl (Maxipime 2000mg) 2,000 mg in 20 mls @ 5 mls/min IV NOW STA; Protocol Stop: 10/18/24 21:20 Last Admin: 10/18/24 21:39 Dose: 5 mls/min Documented By: ZACKARY Metronidazole (Flagyl) 500 mg in 100 mls @ 100 mls/hr IV NOW STA; Protocol Stop: 10/18/24 22:16 Last Infusion: 10/18/24 22:44 Dose: Infused Documented By: Admin: 10/18/24 21:35 Dose: 100 mls/hr Documented By: ZACKARY Pantoprazole Sodium (Protonix) 40 mg in 10 mls @ 5 mls/min IV DAILY FANNY Stop: 11/18/24 08:59 Last Admin: 10/19/24 10:16 Dose: 5 mls/min Documented By: JANELL Ciprofloxacin (Cipro / D5w) 400 mg in 200 mls @ 200 mls/hr IV NOW STA; Protocol Stop: 10/19/24 01:32 Last Infusion: 10/19/24 02:44 Dose: Infused Documented By: Admin: 10/19/24 01:34 Dose: 200 mls/hr Documented By: ZACKARY Ioversol (Optiray 320 125ml) 119 ml IV ONCE ONE Stop: 10/18/24 16:37 Last Admin: 10/18/24 16:36 Dose: 119 ml Documented By: PEYTON Imaging Data Radiologist's Impression: Head CT 10/18/24 13:48 CT OF THE HEAD WITHOUT CONTRAST CLINICAL HISTORY: Neuro deficit, acute, stroke suspected COMPARISON STUDY: MRI of the brain February 15, 2022. Head CT August 23, 2023. CT DOSE: 625.8 mGy.cm TECHNIQUE: Helical axial images of the head were obtained without IV contrast. Automated exposure control was utilized for the study. A dose lowering technique was utilized adhering to the principles of ALARA. FINDINGS: No acute intracranial hemorrhage, midline shift or mass effect is present. The ventricular system is stable. White matter hypodensities are unchanged and favor small vessel disease. The basal cisterns are patent. No extra-axial collections are present. There are no findings to suggest acute dural sinus thrombosis or acute territorial infarct. Old bilateral thalamic infarcts are unchanged. A small amount of fluid within the left mastoid air cells is unchanged. IMPRESSION: No acute intracranial findings. No change in appearance of the brain. ACT 112: Negative or not required by law. Electronically signed by: Drake Ryan M.D. 10/18/2024 2:39 PM Discharge Plan Visit Data Chief Complaint: TIA Symptoms Stated Complaint: TIA SYMPTOMS ED Provider: Ruma Agustin Discharge Problem: Right leg weakness, Abnormal LFTs, Dehydration Patient Disposition: Admitted As Inpatient Discharge Instructions Interventions: ED Discharge Assessment Last Done: 10/19/24 02:16
[2024-10-18 16:32] LABS: INR 1.1 (0.9-1.1); Partial Thromboplastin Time 27 Seconds (21-31); Prothrombin Time 11.4 Seconds (9.0-12.0)
[2024-10-18] MEDS: OPTIRAY 320 125ml IV ONE (16:36)
[2024-10-18] MEDS: SODIUM CHLORIDE 0.9% 1,000 ML IV SCH (16:46)
[2024-10-18 17:03] LABS: Appearance Urine Clear (Clear); Bilirubin Urine 1+ (Negative); Blood Urine Negative (Negative); Color Urine Dark Yellow; Glucose Urine UA Negative (Negative); Ketones Urine Negative (Negative); Leukocyte Esterase Urine Negative (Negative); Nitrite Urine Negative (Negative); Protein Urine Negative (Negative); Specific Gravity Urine 1.015 (1.000-1.030); Urobilinogen Urine Positive (Negative)
--- NOTE | 2024-10-18 17:20 | XRay Report ---
Chest radiograph, one view History: Chest pain Comparison: 08/23/2023 Findings: Single AP view of the chest performed. No focal consolidation or pleural effusion. No pneumothorax. The cardiomediastinal silhouette is within normal limits. Normal pulmonary vascularity. No evidence for lymphadenopathy. No visualized bony or soft tissue abnormality. Impression: Normal chest radiograph Electronically signed by Alexy Lee 10-18-2024 5:20 PM
--- NOTE | 2024-10-18 17:42 | CT Scan Report ---
CT angiogram of the neck CT angiogram of the brain with contrast Provided History: Neuro deficit Comparison: None Technique: HEAD and NECK CTA: During rapid bolus intravenous injection of nonionic contrast material, axial images were obtained using thin collimation multidetector helical technique from the base of the neck through the Vertex of vertex of the head. This CT angiogram data was reconstructed at thin intervals with mild overlap. 3D reconstructions were obtained. The axial source images, multiplanar reformations, 3D reconstructions in both maximum intensity projection display and volume rendered models were reviewed. Dose reduction techniques were achieved by using automatic exposure control and/or adjustment of mA and/or kV according to patient size and/or use of iterative reconstruction technique. Findings: Head CTA demonstrates no aneurysm or stenosis of the major intracranial arteries. Mild calcification at the carotid bulbs and proximal ICA bilaterally without associated stenosis. Neck CTA demonstrates no stenosis of the major cervical arteries. The origins of the great vessels from the aortic arch are patent. The normal distal right internal carotid artery measures 5 mm. The normal distal left internal carotid artery measures 5 mm. No mass is noted within the visualized portions of the cervical soft tissues or lung apices. Impression: 1. Head CTA demonstrates no aneurysm or stenosis of the major intracranial arteries, 2. Neck CTA demonstrates no stenosis of the major cervical arteries. The study was analyzed using artificial intelligence software for large vessel occlusion detection. Electronically signed by Alexy Lee 10-18-2024 5:41 PM
[2024-10-18 17:49] LABS: Adenovirus PCR Not Detected (NotDetected); Bordetella parapertussis PCR Not Detected (NotDetected); Bordetella pertussis PCR Not Detected (NotDetected); Chlamydia pneumoniae PCR Not Detected (NotDetected); Coronavirus 229E PCR Not Detected (NotDetected); Coronavirus CoV-2 (COVID19)PCR Not Detected (NotDetected); Coronavirus HKU1 PCR Not Detected (NotDetected); Coronavirus NL63 PCR Not Detected (NotDetected); Coronavirus OC43PCR Not Detected (NotDetected); Human Metapneumovirus PCR Not Detected (NotDetected); Influenza A PCR Not Detected (NotDetected); Influenza B PCR Not Detected (NotDetected); Mycoplasma pneumoniae PCR Not Detected (NotDetected); Parainfluenza Virus 1 PCR Not Detected (NotDetected); Parainfluenza Virus 2 PCR Not Detected (NotDetected); Parainfluenza Virus 3 PCR Not Detected (NotDetected); Parainfluenza Virus 4 PCR Not Detected (NotDetected); Respiratory Syncytial VirusPCR Not Detected (NotDetected); Rhinovirus/Enterovirus PCR Not Detected (NotDetected)
--- NOTE | 2024-10-18 18:16 | Ultrasound Report ---
EXAMINATION: US abdomen right upper quadrant COMPARISON: None HISTORY: Abdominal pain TECHNIQUE: The right upper quadrant of the abdomen was scanned in standard fashion with specialized ultrasound transducers using both san scale and limited color Doppler techniques. Findings: Liver: The liver demonstrates normal homogeneous echotexture. No evidence of a focal hepatic mass or intrahepatic biliary ductal dilatation. The main portal vein is patent with antegrade flow. The liver measures 14.4 cm. Gallbladder: The gallbladder is partially filled with numerous small calcified stones. There is mild to moderate gallbladder wall thickening, up to 5 mm. No significant pericholecystic fluid. Bile Ducts: Both the intra- and extrahepatic biliary system are of normal callber. The common bile duct measures 3.0 mm in diameter. Pancreas: Visualized portions of the head and body of the pancreas are unremarkable. The tail is obscured due to bowel gas. Right kidney: Normal echotexture, without mass or hydronephrosis. There is a small simple appearing cyst. Right kidney craniocaudal dimension: 9.9 cm Fluid: No evidence of ascites or pleural effusions. Impression: 1. There is cholelithiasis, and mild to moderate wall thickening. Correlate with a clinical Oleary sign. Acute cholecystitis is not excluded. Electronically signed by Alexy Lee 10-18-2024 6:16 PM
--- OUTSIDE RECORDS SUMMARY | 2024-10-18 20:06 | External Medical Summary | Continuity of Care Document ---
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 Name Role Phone Tara Polanco Primary Care Physician [phone] [id number] Date(s): 05/16/24 - 05/16/24 [facility] [address] 1 [facility] [address], [facility] [address] [place], [place] [phone] Encounter Diagnosis Unspecified sequelae of cerebral infarction(Final) - Personal history of transient ischemic attack (TIA), and cerebral infarction without residual deficits(Final) - Impaired fasting glucose(Final) - Discharge Disposition: Home or Self Care Attending Physician: JILLIAN Polanco Shari A Referring Physician: JILLIAN Polanco Shari A Allergies, Adverse Reactions, Alerts Substance Criticality Severity Reaction Reaction Severity Status penicillin swelling Active [place] C swelling Active Immunizations Given and Recorded Vaccine Date Status Refusal Reason pneumococcal 23-valent vaccine 1 12/22/19 Recorded tetanus/diphtheria/pertuss, acel (Tdap) 11/19/13 G bill Moraesult Comment: 2020-05-22: Historical information-source unspecified Medications amLODIPine 5 mg oral tablet Start: 01/04/24 1:01:00 PM EDT, 1 tab, PO, Daily, Disp# 90 tab, Refills: 3, Pharmacy: [facility] Start Date: 01/04/24 Status: Ordered aspirin 81 mg oral delayed release tablet Start: 03/07/22 3:27:00 PM EDT, 1 tab, PO, Daily Start Date: 03/07/22 Status: Ordered atorvastatin 80 mg oral tablet Start: 01/04/24 1:01:00 PM EDT, 1 tab, PO, Daily, Disp# 90 tab, Refills: 3, [facility] Start Date: 01/04/24 Status: Ordered multivitamin Start: 11/10/16 12:26:00 PM EST, 1 tab, PO, Daily Start Date: 11/10/16 Status: Ordered pantoprazole 40 mg oral delayed release tablet Start: 04/01/24 10:01:00 AM EDT, 1 tab, PO, Daily, Disp# 90 tab, Refills: 0, Pharmacy: [id number] Start Date: 04/01/24 Status: Ordered permethrin 5% topical cream Start: 05/17/24 3:46:00 PM EDT, 1 appl, topical, ONCE, Disp# 60 g, Refills: 1, to skin head to feet, remove by washing after 8 to 14 hours, [facility] Start Date: 05/17/24 Status: Ordered Problem List Condition Confirmation Course Effective Dates Status H ealth Status Informant Esophagitis Confirmed Active Chronic GERD Confirmed Active GERD Confirmed Active H/O: HTN Confirmed Active Hemiplegia of right dominant side (disorder) Confirmed Active History of ischemic stroke Confirmed 03/07/22 Active History of cerebrovascular accident with residual deficit 1 Confirmed Active Hyperlipidemia Confirmed Active Hypertension Confirmed Active Influenza Confirmed Active Influenza B Confirmed Active Interstitial pulmonary disease, unspecified 2 Confirmed Active Esophageal ring Confirmed Active Hiatal hernia Confirmed Active Pneumonia Confirmed Active Tobacco user Confirmed Active Weight disorder Confirmed Active 1See outside note 02/17/22 02/16/22 [facility] 2See outside note 08/23/23 CXR 08/23/23 Chronic interstitial thickening as previous Procedures Procedure Date Related Diagnosis Body Site Status Upper GI endoscopy 1 03/10/17 Comp leted Upper GI endoscopy 2 12/26/16 Comp leted Upper GI endoscopy 3 11/04/16 Comp leted Endoscopy,upper GI Comple andrea L leg fracture Completed 1esophagitis has healed 2LA Grade B esophagitis. Improved. No specimens collected. 3LA Grade D esophagitis, with clot without oozing. Large hiatal hernia. Possible small diverticulum Results Laboratory List Name Date Comprehensive Metabolic Panel (COMP META B PANEL) 05/16/24 Hemoglobin A1C (HEMOGLOBIN, A1C) 05/16/24 Lipid Profile (LIPOPROTEINS) 05/16/24 Most recent to oldest [Reference Range]: 1 eGFR CKD-EPI [>60 mL/min/1.73 m2] 69 mL/ min/1.73 m2 1 (8/1/24 7:39 AM) Estimated Average Glucose 120 mg/dL 2 (05/16/24 7:39 AM) Non-HDL 67 mg/dL 3 (05/16/24 7:39 AM) Estimated CrCl 61.66 mL/min (05/16/24 8:47 AM) Anion Gap [5-14 mmol/L] 9 mmol/L (05/16/24 7:39 AM) Alb [3.5-5.0 g/dL] 3.8 g/dL (05/16/24 7:39 AM) Alk Phos [38-126 unit/L] 89 unit/L (05/16/24 7:39 AM) ALT [<50 unit/L] 36 unit/L (05/16/24 7:39 AM) AST [15-46 unit/L] 29 unit/L (05/16/24 7:39 AM) BUN [7-20 mg/dL] 17 mg/dL (05/16/24 7:39 AM) Ca [8.4-10.2 mg/dL] 8.9 mg/dL (05/16/24 7:39 AM) Chol/HDL 3 (05/16/24 7:39 AM) Chol [125-200 mg/dL] 110 mg/dL *LOW* (05/16/24 7:39 AM) Cl- [96-107 mmol/L] 110 mmol/L *HI* (05/16/24 7:39 AM) HCO3 [22-30 mmol/L] 21 mmol/L *LOW* (05/16/24 7:39 AM) Cret [0.70-1.30 mg/dL] 1.12 mg/dL (05/16/24 7:39 AM) HbA1c [4.0-6.0 %] 5.8 % (05/16/24 7:39 AM) Glu [74-106 mg/dL] 106 mg/dL (05/16/24 7:39 AM) HDL [>35 mg/dL] 43 mg/dL (05/16/24 7:39 AM) K [3.5-5.1 mmol/L] 3.9 mmol/L (05/16/24 7:39 AM) LDL Chol, Calculated [50-130 mg/dL] 54 m g/dL (05/16/24 7:39 AM) Na [137-145 mmol/L] 140 mmol/L (05/16/24 7:39 AM) T Bili [0.2-1.3 mg/dL] 1.2 mg/dL (05/16/24 7:39 AM) Prot [6.3-8.2 g/dL] 6.8 g/dL (05/16/24 7:39 AM) TG [<200 mg/dL] 64 mg/dL (05/16/24 7:39 AM) 1Result Comment: Testing Performed By: Dept of Pathology [facility] [address], [address] [facility], [place] [address] 2Result Comment: Testing Performed By: Dept of Pathology [facility] [address], [address] [facility], [place] [address] 3Result Comment: Testing Performed [facility] [address], [address] [facility], [place] [address] Social History Social History Type Response Tobacco Oral Smoking Status Never smoked cigaret geraldo Sex Male Sex Representation Male (finding) Patient Care team information Care Team Personnel Name: MD Angelica, Zaire Position: Physician - Family Med Member Role: Lifetime Relationship Address: [address] [place] [address], [place] [address] [place] Name: JILLIAN Polanco Shari A Position: Nurse Pract - Family Med Member Role: Lifetime Relationship Address: [address] [place] [address], [place] [address] Care Team Related Persons Name: KYRIE JUNE
[2024-10-18] MEDS: FAMOTIDINE 20MG IV PUSH 20 MG/5 ML SYR IV STA (20:57)
[2024-10-18] MEDS: PANTOprazole 40 MG/10 ML SYR IV ONE (21:29)
[2024-10-18] MEDS: metroNIDAZOLE 500 MG/100 ML BAG IV STA (21:35)
[2024-10-18] MEDS: CEFEPIME 2000MG 2,000 MG/20 ML SYR IV STA (21:39)
--- NOTE | 2024-10-18 23:06 | Magnetic Resonance Report ---
Exam(s): MRI MRCP EXAM: MR Abdomen Without Intravenous Contrast, MRCP Protocol CLINICAL HISTORY: Abnormal liver function tests TECHNIQUE: Multiplanar magnetic resonance images of the abdomen without intravenous contrast using MRCP protocol. COMPARISON: Abdominal ultrasound 10/18/2024 FINDINGS: Bile ducts: Unremarkable. No stones. No ductal dilation. Gallbladder: Cholelithiasis. Thickening of the gallbladder wall could relate to chronic liver disease or acute cholecystitis. Liver: Suspect nodular contour of the liver concerning for cirrhosis. Pancreas: Unremarkable. No ductal dilation. Spleen: Unremarkable. No splenomegaly. Adrenals: Unremarkable. No mass. Kidneys and ureters: Simple appearing bilateral renal cysts are present, no follow up is needed. The kidneys are otherwise unremarkable. No hydronephrosis. Stomach and bowel: Moderate hiatal hernia. No obstruction. IMPRESSION: 1. Cholelithiasis. Thickening of the gallbladder wall could relate to chronic liver disease or acute cholecystitis. 2. Suspect nodular contour of the liver concerning for cirrhosis. Patient motion degrades image quality. 3. Moderate hiatal hernia. Electronically signed by: Diana Clinton MD 10/18/24 23:05 PM
[2024-10-18] MEDS ORDERED: MoRPHine SULFATE 4 MG/ML 1 ML CARP\\VIAL IV PRN (23:48)
--- NOTE | 2024-10-18 23:53 | History & Physical Report ---
Date of Service October 18, 2024 Assessment & Plan (1) Abnormal abdominal CT scan: (2) Abnormal LFTs: (3) Confusion: (4) History of hemorrhagic cerebrovascular accident (CVA) with residual deficit: Plan The patient is a 73-year-old male with a past medical history including occlusio n of posterior cerebral artery, acute CVA, depression, GERD, history of kidney stones, hypertension, hyperlipidemia, and mild residual right-sided weakness. The patient presents to the emergency department via EMS due to family concerns regarding worsening weakness, fatigue and difficulty walking. Symptoms began around 730 this morning when he went to the bathroom and could not get up off the commode. He was able ultimately to get to the couch and sat down. He stayed today with his grandson, who became concerned when the patient was still not back to his usual self about 11:00 AM. Patient does have a history of chronic right-sided weakness, which family thought may have been a little bit worse, and due to persistence of decreased responsiveness, confusion, EMS was called, and patient was brought to the ED for assessment. #Abnormal CT scan/abnormal LFTs- Total bilirubin 5.2, AST 189, ALT 267, alkaline phosphatase 210 Ultrasound of abdomen shows cholelithiasis, and mild to moderate gallbladder wall thickening. Correlate with clinical Oleary sign. Acute cholecystitis is not excluded MRCP shows cholelithiasis. Thickening of the gallbladder wall which could relate to chronic liver disease or acute cholecystitis. Suspect nodular contour of the liver concerning for cirrhosis. Patient motion degrades image quality. Moderate hiatal hernia Order HIDA scan NPO Cipro 400 mg IV every 12 hours Flagyl 500 mg IV every 8 hours Zofran 4 mg IV every 6 hours as needed Pantoprazole 40 mg IV daily Repeat laboratories in a.m. Consult general surgery #Confusion/generalized weakness- History of residual right sided deficit, unchanged per patient CT head without contrast negative CTA head and neck negative MRI brain showed no acute findings BioFire test negative UA looks negative Symptoms most likely associated with liver dysfunction Hypertension- Holding amlodipine Hydralazine 10 mg IV every 6 hours as needed for systolic blood pressure above 160 NSS at 125 mL/h History of Present Illness Chief Complaint: The patient presents to the emergency department via EMS due to family concerns regarding worsening weakness, fatigue and difficulty walking. Symptoms began around 730 this morning when he went to the bathroom and could not get up off the commode. He was able ultimately to get to the couch and sat down. He stayed today with his grandson, who became concerned when the patient was still not back to his usual self about 11:00 AM. Patient does have a history of chronic right-sided weakness, which family thought may have been a little bit worse, and due to persistence of decreased responsiveness, confusion, EMS was called, and patient was brought to the ED for assessment. Primary Care Provider: JILLIAN Lee The patient is a 73-year-old male with a past medical history including occlusion of posterior cerebral artery, acute CVA, depression, GERD, history of kidney stones, hypertension, hyperlipidemia, and mild residual right-sided weakness. The patient presents to the emergency department via EMS due to family concerns regarding worsening weakness, fatigue and difficulty walking. Symptoms began around 730 this morning when he went to the bathroom and could not get up off the commode. He was able ultimately to get to the couch and sat down. He stayed today with his grandson, who became concerned when the patient was still not back to his usual self about 11:00 AM. Patient does have a history of chronic right-sided weakness, which family thought may have been a little bit worse, and due to persistence of decreased responsiveness, confusion, EMS was called, and patient was brought to the ED for assessment. Allergies Allergy/AdvReac Type Severity Reaction Status Date / Time sertraline Allergy Intermediate HIVES Verified 10/18/24 18:02 Penicillins Allergy Mild HIVES Verified 10/18/24 18:02 strawberry Allergy Unknown HIVES Verified 10/18/24 18:02 Home Medications Medication Instructions Recorded Confirmed Type pantoprazole 40 mg tablet,delayed 40 mg PO DAILY 12/19/19 10/18/24 History release acetaminophen 500 mg tablet 500 mg PO Q6H PRN Pain 12/20/19 10/18/24 History aspirin 81 mg tablet,delayed 81 mg PO QAM #90 tabs 02/22/22 10/18/24 Rx release atorvastatin 80 mg tablet (Lipitor) 80 mg PO DAILY #30 tabs 02/22/22 10/18/24 Rx amlodipine 5 mg tablet 5 mg PO DAILY 08/23/23 10/18/24 History Past Med/Surg History Problem List (Updated 10/19/24 @ 04:00 by Jose Mills MD) History of hemorrhagic cerebrovascular accident (CVA) with residual deficit Confusion Abnormal LFTs Abnormal abdominal CT scan Right leg weakness (Acute) Hyperbilirubinemia Ground-level fall COVID-19 (Acute) Occlusion of posterior cerebral artery Acute cerebrovascular accident (CVA) Depression as late effect of cerebrovascular accident (CVA) GERD (gastroesophageal reflux disease) Acute respiratory failure with hypoxia Pneumonia (Acute) Hypoxia (Acute) Kidney stones Acute upper GI bleeding Medical History (Updated 10/19/24 @ 04:00 by Jose Mills MD) H/O: stroke Unwitnessed fall Hyperlipidemia Hypertension No significant past medical history Surgical History No pertinent past surgical history Family History Other No pertinent family history in first degree relatives Social History Smoking Status: Never smoker Second Hand Exposure: No; Do You Dip or Chew Tobacco: No; Hx Alcohol Use: Yes Alcohol type: beer Hx Substance Use: No Preferred Language: Georgian Communication Ability: Effective Lens Cementer Required: No Beliefs That Will Affect Care: None marital status: Life Partner Current Living Situation: Significant Other Feels Safe at Home: Yes Assistive Devices: Cane and Glasses Review of Systems Review of Systems: The patient denies chest pain, palpitations, shortness of breath, dyspnea on exertion, cough, lower extremity swelling, sore throat, fevers, chills, sweats, weight change, fatigue, nausea, vomiting, diarrhea , constipation, abdominal pain, pelvic pain, blood in urine or stool, dysuria, urinary frequency or urgency, memory loss, loss of consciousness, rash, abnormal bruising or bleeding, generalized arthralgias or myalgias, back or neck pain, or night sweats. The review of systems is otherwise negative other than for that already noted above, and at least 10 systems have been reviewed. Physical Exam Physical Exam: The patient is awake, alert and oriented 3, well developed and well nourished, normocephalic and atraumatic, lying in bed and in no acute distress. HEENT--PERRL, EOMI, mucous membranes and oropharynx mildly dry. Neck--supple. No JVD. No bruits. Thyroid normal, trachea midline, no adenopathy. Heart--normal S1 and S2. No murmurs, rubs or gallops. Lungs--clear bilaterally, no respiratory distress, no accessory muscle use. Abdomen--normal bowel sounds and soft. Nontender. Nondistended, no hernias or masses, no organomegaly. Extremities--no cyanosis or clubbing. No edema. There are good distal pulses b/l. Dermatologic--normal skin turgor, normal color, no abnormal lymph nodes, no rash. Neurologic--cranial nerves II through XII grossly intact. Rheumatologic--normal range of motion. Psychiatric--normal affect. Results & Data Results & Data Vital Signs (Past 12 Hours) Vital Signs Temp Pulse Pulse Resp BP BP Pulse Ox 10/18/24 22:36 67 18 126/66 94 10/18/24 22:03 68 10/18/24 20:26 84 18 124/66 95 10/18/24 18:00 67 24 130/68 92 10/18/24 16:54 63 18 95 10/18/24 16:08 77 16 112/63 93 10/18/24 13:42 36.8 C 72 18 120/77 94 O2 Del Method 10/18/24 22:36 Room Air 10/18/24 22:03 10/18/24 20:26 Room Air 10/18/24 18:00 Room Air 10/18/24 16:54 Room Air 10/18/24 16:08 Room Air 10/18/24 13:42 Room Air Laboratory Results Laboratory Results WBC 13.56 K/ul (4.8-10.8) H 10/18/24 15:35 RBC 5.07 M/uL (4.70-6.10) 10/18/24 15:35 Hgb 14.9 g/dl (14.0-18.0) 10/18/24 15:35 POC Hgb 16.0 g/dl (14.0-18.0) 10/18/24 15:46 Hct 44.8 % (42.0-52.0) 10/18/24 15:35 POC Hct 47 % (42-52) 10/18/24 15:46 MCV 88.4 fL (80.0-100.0) 10/18/24 15:35 MCH 29.4 pg (25.0-34.0) 10/18/24 15:35 MCHC 33.3 g/dL (32.0-36.0) 10/18/24 15:35 RDW Std Deviation 44.6 fL (36.4-46.3) 10/18/24 15:35 RDW Coeff of Alvaro 13.9 % (11.5-14.5) 10/18/24 15:35 Plt Count 333 K/uL (130-400) 10/18/24 15:35 MPV 8.4 fL (9.4-12.4) L 10/18/24 15:35 PT 11.4 Seconds (9.0-12.0) 10/18/24 15:35 INR 1.1 (0.9-1.1) 10/18/24 15:35 APTT 27 Seconds (21-31) 10/18/24 15:35 PTT Ratio 1.0 10/18/24 15:35 POC Sodium 138 mmol/L (135-144) 10/18/24 15:46 Sodium 137 mmol/L (136-145) 10/18/24 15:35 POC Potassium 4.0 mmol/L (3.3-5.0) 10/18/24 15:46 Potassium 4.0 mmol/L (3.5-5.1) 10/18/24 15:35 POC Chloride 105 mmol/L (101-112) 10/18/24 15:46 Chloride 106 mmol/L (98-107) 10/18/24 15:35 Carbon Dioxide 24 mmol/L (21-32) 10/18/24 15:35 POC Total CO2 21 mmol/L (24-31) L 10/18/24 15:46 Anion Gap 7 (3-11) 10/18/24 15:35 POC Anion Gap 17.0 mmol/L (16-25) 10/18/24 15:46 POC BUN 13 mg/dl (7-18) 10/18/24 15:46 BUN 14 mg/dl (6-23) 10/18/24 15:35 Creatinine 1.27 mg/dl (0.6-1.4) 10/18/24 15:35 POC Creatinine 1.3 mg/dl (0.6-1.3) 10/18/24 15:46 Est Cr Clr Drug Dosing 53.0 ml/min 10/18/24 15:35 eGFR 59.65 10/18/24 15:35 BUN/Creatinine Ratio 11.0 (10-20) 10/18/24 15:35 Glucose 114 mg/dl (70-99(Fasting)) H 10/18/24 15:35 POC Glucose (other) 112 mg/dl (70-99) H 10/18/24 15:46 Calcium 9.3 mg/dl (8.6-10.3) 10/18/24 15:35 POC Ioniz Calcium Linda 1.19 mmol/l (1.12-1.32) 10/18/24 15:46 Magnesium 2.1 mg/dl (1.7-2.4) 10/18/24 15:35 Total Bilirubin 5.2 mg/dl (0.2-1.0) H 10/18/24 15:35 AST 189 U/L (13-39) H 10/18/24 15:35 ALT 267 U/L (7-52) H 10/18/24 15:35 Alkaline Phosphatase 210 U/L (34-104) H 10/18/24 15:35 Total Protein 7.2 gm/dl (6.0-8.3) 10/18/24 15:35 Albumin 4.2 gm/dl (3.4-5.0) 10/18/24 15:35 Globulin 3.0 gm/dl (2.5-4.0) 10/18/24 15:35 Albumin/Globulin Ratio 1.4 (0.9-2) 10/18/24 15:35 Procalcitonin 1.23 ng/ml (0-0.5) H 10/18/24 15:35 Urine Color Dark Yellow 10/18/24 15:35 Urine Appearance Clear (Clear) 10/18/24 15:35 Urine pH 8.0 (4.5-7.5) H 10/18/24 15:35 Ur Specific [place] 1.015 (1.000-1.030) 10/18/24 15:35 Urine Protein Negative (Negative) 10/18/24 15:35 Urine Glucose (UA) Negative (Negative) 10/18/24 15:35 Urine Ketones Negative (Negative) 10/18/24 15:35 Urine Blood Negative (Negative) 10/18/24 15:35 Urine Nitrite Negative (Negative) 10/18/24 15:35 Urine Bilirubin 1+ (Negative) H 10/18/24 15:35 Urine Urobilinogen Positive (Negative) H 10/18/24 15:35 Ur Leukocyte Esterase Negative (Negative) 10/18/24 15:35 Adenovirus (PCR) Not Detected (NotDetected) 10/18/24 16:43 B. pertussis DNA (PCR) Not Detected (NotDetected) 10/18/24 16:43 B.parapertussis DNA PCR Not Detected (NotDetected) 10/18/24 16:43 C. pneumoniae DNA (PCR) Not Detected (NotDetected) 10/18/24 16:43 Coronavirus OC43 (PCR) Not Detected (NotDetected) 10/18/24 16:43 Coronavirus HKU1 (PCR) Not Detected (NotDetected) 10/18/24 16:43 Coronavirus 229E (PCR) Not Detected (NotDetected) 10/18/24 16:43 SARS-CoV-2 (PCR) Not Detected (NotDetected) 10/18/24 16:43 Coronavirus NL63 (PCR) Not Detected (NotDetected) 10/18/24 16:43 Human Metapneumovir PCR Not Detected (NotDetected) 10/18/24 16:43 Influenza Type A (PCR) Not Detected (NotDetected) 10/18/24 16:43 Influenza Type B (PCR) Not Detected (NotDetected) 10/18/24 16:43 M. pneumoniae (PCR) Not Detected (NotDetected) 10/18/24 16:43 Parainfluenza 1 (PCR) Not Detected (NotDetected) 10/18/24 16:43 Parainfluenza 2 (PCR) Not Detected (NotDetected) 10/18/24 16:43 Parainfluenza 3 (PCR) Not Detected (NotDetected) 10/18/24 16:43 Parainfluenza 4 (PCR) Not Detected (NotDetected) 10/18/24 16:43 RSV (PCR) Not Detected (NotDetected) 10/18/24 16:43 Entero/Rhino (PCR) Not Detected (NotDetected) 10/18/24 16:43 Impressions Chest X-Ray 10/18/24 13:48 Chest radiograph, one view History: Chest pain Comparison: 08/23/2023 Findings: Single AP view of the chest performed. No focal consolidation or pleural effusion. No pneumothorax. The cardiomediastinal silhouette is within normal limits. Normal pulmonary vascularity. No evidence for lymphadenopathy. No visualized bony or soft tissue abnormality. Impression: Normal chest radiograph Electronically signed by Alexy Lee 10-18-2024 5:[address] 10/18/24 13:48 CT OF THE HEAD WITHOUT CONTRAST CLINICAL HISTORY: Neuro deficit, acute, stroke suspected COMPARISON STUDY: MRI of the brain February 15, 2022. Head CT August 23, 2023. CT DOSE: 625.8 mGy.cm TECHNIQUE: Helical axial images of the head were obtained without IV contrast. Automated exposure control was utilized for the study. A dose lowering technique was utilized adhering to the principles of ALARA. FINDINGS: No acute intracranial hemorrhage, midline shift or mass effect is present. The ventricular system is stable. White matter hypodensities are unchanged and favor small vessel disease. The basal cisterns are patent. No extra-axial collections are present. There are no findings to suggest acute dural sinus thrombosis or acute territorial infarct. Old bilateral thalamic infarcts are unchanged. A small amount of fluid within the left mastoid air cells is unchanged. IMPRESSION: No acute intracranial findings. No change in appearance of the brain. ACT 112: Negative or not required by law. Electronically signed by: Drake Ryan M.D. 10/18/2024 2:39 PM Head CTA 10/18/24 16:14 CT angiogram of the neck CT angiogram of the brain with contrast Provided History: Neuro deficit Comparison: None Technique: HEAD and NECK CTA: During rapid bolus intravenous injection of nonionic contrast material, axial images were obtained using thin collimation multidetector helical technique from the base of the neck through the Vertex of vertex of the head. This CT angiogram data was reconstructed at thin intervals with mild overlap. 3D reconstructions were obtained. The axial source images, multiplanar reformations, 3D reconstructions in both maximum intensity projection display and volume rendered models were reviewed. Dose reduction techniques were achieved by using automatic exposure control and/or adjustment of mA and/or kV according to patient size and/or use of iterative reconstruction technique. Findings: Head CTA demonstrates no aneurysm or stenosis of the major intracranial arteries. Mild calcification at the carotid bulbs and proximal ICA bilaterally without associated stenosis. Neck CTA demonstrates no stenosis of the major cervical arteries. The origins of the great vessels from the aortic arch are patent. The normal distal right internal carotid artery measures 5 mm. The normal distal left internal carotid artery measures 5 mm. No mass is noted within the visualized portions of the cervical soft tissues or lung apices. Impression: 1. Head CTA demonstrates no aneurysm or stenosis of the major intracranial arteries, 2. Neck CTA demonstrates no stenosis of the major cervical arteries. The study was analyzed using artificial intelligence software for large vessel occlusion detection. Electronically signed by Alexy Lee 10-18-2024 5:41 PM Neck CTA 10/18/24 16:14 CT angiogram of the neck CT angiogram of the brain with contrast Provided History: Neuro deficit Comparison: None Technique: HEAD and NECK CTA: During rapid bolus intravenous injection of nonionic contrast material, axial images were obtained using thin collimation multidetector helical technique from the base of the neck through the Vertex of vertex of the head. This CT angiogram data was reconstructed at thin intervals with mild overlap. 3D reconstructions were obtained. The axial source images, multiplanar reformations, 3D reconstructions in both maximum intensity projection display and volume rendered models were reviewed. Dose reduction techniques were achieved by using automatic exposure control and/or adjustment of mA and/or kV according to patient size and/or use of iterative reconstruction technique. Findings: Head CTA demonstrates no aneurysm or stenosis of the major intracranial arteries. Mild calcification at the carotid bulbs and proximal ICA bilaterally without associated stenosis. Neck CTA demonstrates no stenosis of the major cervical arteries. The origins of the great vessels from the aortic arch are patent. The normal distal right internal carotid artery measures 5 mm. The normal distal left internal carotid artery measures 5 mm. No mass is noted within the visualized portions of the cervical soft tissues or lung apices. Impression: 1. Head CTA demonstrates no aneurysm or stenosis of the major intracranial arteries, 2. Neck CTA demonstrates no stenosis of the major cervical arteries. The study was analyzed using artificial intelligence software for large vessel occlusion detection. Electronically signed by Alexy Lee 10-18-2024 5:41 PM Abdomen Ultrasound 10/18/24 16:51 EXAMINATION: US abdomen right upper quadrant COMPARISON: None HISTORY: Abdominal pain TECHNIQUE: The right upper quadrant of the abdomen was scanned in standard fashion with specialized ultrasound transducers using both san scale and limited color Doppler techniques. Findings: Liver: The liver demonstrates normal homogeneous echotexture. No evidence of a focal hepatic mass or intrahepatic biliary ductal dilatation. The main portal vein is patent with antegrade flow. The liver measures 14.4 cm. Gallbladder: The gallbladder is partially filled with numerous small calcified stones. There is mild to moderate gallbladder wall thickening, up to 5 mm. No significant pericholecystic fluid. Bile Ducts: Both the intra- and extrahepatic biliary system are of normal callber. The common bile duct measures 3.0 mm in diameter. Pancreas: Visualized portions of the head and body of the pancreas are unremarkable. The tail is obscured due to bowel gas. Right kidney: Normal echotexture, without mass or hydronephrosis. There is a small simple appearing cyst. Right kidney craniocaudal dimension: 9.9 cm Fluid: No evidence of ascites or pleural effusions. Impression: 1. There is cholelithiasis, and mild to moderate wall thickening. Correlate with a clinical Oleary sign. Acute cholecystitis is not excluded. Electronically signed by Alexy Lee 10-18-2024 6:16 PM Brain MRI 10/18/24 18:29 Exam(s): MRI HEAD Without Contrast EXAM: MR Head Without Intravenous Contrast CLINICAL HISTORY: Right lower extremity weakness TECHNIQUE: Magnetic resonance images of the head/brain without intravenous contrast in multiple planes. COMPARISON: CT head 10/18/2024 FINDINGS: Brain: No acute infarct. No intracranial hemorrhage, mass-effect or midline shift. Moderate periventricular white matter T2/flair signal abnormalities are most consistent with chronic microangiopathy. There is encephalomalacia of the right cerebellum. Ventricles: Unremarkable. No ventriculomegaly. Bones/joints: Unremarkable. No acute fracture. Sinuses: Unremarkable as visualized. No acute sinusitis. Mastoid air cells: Unremarkable as visualized. No mastoid effusion. Orbits: Unremarkable as visualized. IMPRESSION: No acute findings in the head/brain. Electronically signed by: Diana Clinton MD 10/19/24 00:21 AM Cholangiopancreatography MRI 10/18/24 18:29 Exam(s): MRI MRCP EXAM: MR Abdomen Without Intravenous Contrast, MRCP Protocol CLINICAL HISTORY: Abnormal liver function tests TECHNIQUE: Multiplanar magnetic resonance images of the abdomen without intravenous contrast using MRCP protocol. COMPARISON: Abdominal ultrasound 10/18/2024 FINDINGS: Bile ducts: Unremarkable. No stones. No ductal dilation. Gallbladder: Cholelithiasis. Thickening of the gallbladder wall could relate to chronic liver disease or acute cholecystitis. Liver: Suspect nodular contour of the liver concerning for cirrhosis. Pancreas: Unremarkable. No ductal dilation. Spleen: Unremarkable. No splenomegaly. Adrenals: Unremarkable. No mass. Kidneys and ureters: Simple appearing bilateral renal cysts are present, no follow up is needed. The kidneys are otherwise unremarkable. No hydronephrosis. Stomach and bowel: Moderate hiatal hernia. No obstruction. IMPRESSION: 1. Cholelithiasis. Thickening of the gallbladder wall could relate to chronic liver disease or acute cholecystitis. 2. Suspect nodular contour of the liver concerning for cirrhosis. Patient motion degrades image quality. 3. Moderate hiatal hernia. Electronically signed by: Diana Clinton MD 10/18/24 23:05 PM Code Status & VTE Plan Code Status DNR/DNI VTE Prophylaxis Plan VTE Prophylaxis will be ordered: Yes PG Care Time/CCT Total # of Minutes Spent Total Time Spent with Patient: Total time spent is greater than 50% in coordination of care (as documented) at patient's floor/unit and/or counseling patient: Coding Level of Care Code 75569 INT INP/OBS CARE 3/75MIN Diagnoses Abnormal abdominal CT scan R93.5 Abnormal LFTs R79.89 Confusion R41.0 History of hemorrhagic cerebrovascular accident (CVA) with residual deficit I69.30
--- NOTE | 2024-10-19 00:22 | Magnetic Resonance Report ---
Exam(s): MRI HEAD Without Contrast EXAM: MR Head Without Intravenous Contrast CLINICAL HISTORY: Right lower extremity weakness TECHNIQUE: Magnetic resonance images of the head/brain without intravenous contrast in multiple planes. COMPARISON: CT head 10/18/2024 FINDINGS: Brain: No acute infarct. No intracranial hemorrhage, mass-effect or midline shift. Moderate periventricular white matter T2/flair signal abnormalities are most consistent with chronic microangiopathy. There is encephalomalacia of the right cerebellum. Ventricles: Unremarkable. No ventriculomegaly. Bones/joints: Unremarkable. No acute fracture. Sinuses: Unremarkable as visualized. No acute sinusitis. Mastoid air cells: Unremarkable as visualized. No mastoid effusion. Orbits: Unremarkable as visualized. IMPRESSION: No acute findings in the head/brain. Electronically signed by: Diana Clinton MD 10/19/24 00:21 AM
[2024-10-19] MEDS: CIPROFLOXACIN / D5W 400 MG/200 ML BAG IV STA (01:34)
[2024-10-19] MEDS ORDERED: ONDANSETRON INJ 2 MG/ML 2 ML VIAL IV PRN (02:15)
[2024-10-19] MEDS ORDERED: hydrALAZINE HCL 20 MG/ML VIAL IV PRN (04:05)
[2024-10-19 05:25] LABS: Basophils # (auto) 0.04 K/uL (0.00-0.20); Basophils % (auto) 0.5 %; Eosinophils # (auto) 0.27 K/uL (0.00-0.50); Eosinophils % (auto) 3.3 %; Hematocrit (blood only) 37.2 % (42.0-52.0); Hemoglobin 12.3 g/dl (14.0-18.0); Immature Granulocytes # (auto) 0.02 K/uL (0.01-0.20); Immature Granulocytes % (auto) 0.2 %; Lymphocytes # (auto) 0.93 K/uL (1.20-3.40); Lymphocytes % (auto) 11.2 %; Mean Corpuscular Hemoglobin 29.4 pg (25.0-34.0); Mean Corpuscular Hgb Conc 33.1 g/dL (32.0-36.0); Mean Corpuscular Volume 88.8 fL (80.0-100.0); Mean Platelet Volume 8.9 fL (9.4-12.4); Monocytes # (auto) 0.94 K/uL (0.11-0.59); Monocytes % (auto) 11.4 %; Neutrophils # (auto) 6.07 K/uL (1.40-6.50); Neutrophils % (auto) 73.4 %; Platelet Count 245 K/uL (130-400); RDW Coefficient of Variation 13.8 % (11.5-14.5); RDW Standard Deviation 44.4 fL (36.4-46.3); Red Blood Count 4.19 M/uL (4.70-6.10); White Blood Count 8.27 K/ul (4.8-10.8)
[2024-10-19 05:35] LABS: Albumin Globulin Ratio 1.5 (0.9-2); Albumin Level 3.4 gm/dl (3.4-5.0); BUN Creatinine Ratio 11.9 (10-20); Bilirubin,Total 4.4 mg/dl (0.2-1.0); Calcium 8.2 mg/dl (8.6-10.3); Creatinine Clr Calc Pharmacy 61.8 ml/min; Globulin 2.3 gm/dl (2.5-4.0); Magnesium 1.8 mg/dl (1.7-2.4); Potassium 3.7 mmol/L (3.5-5.1); Total Protein 5.7 gm/dl (6.0-8.3)
--- NOTE | 2024-10-19 07:51 | Hospitalist Progress Note ---
Date of Service October 19, 2024 Assessment & Plan (1) Abnormal abdominal CT scan: (2) Abnormal LFTs: (3) Confusion: (4) History of hemorrhagic cerebrovascular accident (CVA) with residual deficit: Plan The patient is a 73-year-old male with a past medical history including occlusio n of posterior cerebral artery, acute CVA, depression, GERD, history of kidney stones, hypertension, hyperlipidemia, and mild residual right-sided weakness. The patient presents to the emergency department via EMS due to family concerns regarding worsening weakness, fatigue and difficulty walking. Symptoms began around 730 this morning when he went to the bathroom and could not get up off the commode. He was able ultimately to get to the couch and sat down. He stayed today with his grandson, who became concerned when the patient was still not back to his usual self about 11:00 AM. Patient does have a history of chronic right-sided weakness, which family thought may have been a little bit worse, and due to persistence of decreased responsiveness, confusion, EMS was called, and patient was brought to the ED for assessment. #Abnormal CT scan/abnormal LFTs- - Total bilirubin 5.2, AST 189, ALT 267, alkaline phosphatase 210 : Improving - procal: 1.23 - Ultrasound of abdomen shows cholelithiasis, and mild to moderate gallbladder wall thickening. Correlate with clinical Oleary sign. Acute cholecystitis is not excluded - MRCP shows cholelithiasis. Thickening of the gallbladder wall which could relate to chronic liver disease or acute cholecystitis. Suspect nodular contour of the liver concerning for cirrhosis. Patient motion degrades image quality. Moderate hiatal hernia - Order HIDA scan - spoke with gen surgery, cleared for diet , no plans for intervention while inpt , outpatient follow up with gen surgery and GI - on Cipro 400 mg IV every 12 hours , Flagyl 500 mg IV every 8 hours - Zofran 4 mg IV every 6 hours as needed - Pantoprazole 40 mg IV to PO - check hep C #Confusion/generalized weakness- - History of residual right sided deficit, unchanged per patient - CT head without contrast negative - CTA head and neck negative - MRI brain showed no acute findings - BioFire test negative - UA looks negative - Symptoms most likely associated with liver dysfunction #Hypertension- - resume amlodipine - Hydralazine 10 mg IV every 6 hours as needed for systolic blood pressure above 160 - NSS at 125 mL/h #HLD - hold statin in the setting of abnormal LFTs Admission and Anticipated Discharge Date Admission Date: October 18, 2024 Subjective No acute events overnight Currently no new complaints pt stated that he had 1-2 drinks per day 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, this was 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 Review of Systems Review of Systems: comprehensive ROS neg Physical Exam Physical Exam: Gen: NAD, lying in bed comfortable HEENT: NC/AT, MMM Lungs: CTAB CVS: s1s2nl, RRR Abd: soft, NT, nl bowerl sounds Ext: no edema Results & Data Results & Data Vital Signs (Past 12 Hours) Vital Signs Temp Pulse Pulse Resp BP Pulse Ox Pulse Ox 10/19/24 07:02 63 10/19/24 06:11 36.8 C 61 18 123/69 95 10/19/24 03:27 69 22 147/74 H 93 10/19/24 03:19 93 10/19/24 02:08 66 10/19/24 02:00 66 18 118/73 94 10/19/24 00:00 65 20 116/69 95 10/18/24 22:36 67 18 126/66 94 10/18/24 22:03 68 10/18/24 20:26 84 18 124/66 95 O2 Del Method O2 Del Method O2 Flow Rate 10/19/24 07:02 10/19/24 06:11 Nasal Cannula 1 10/19/24 03:27 Room Air 10/19/24 03:19 Room Air 10/19/24 02:08 10/19/24 02:00 Room Air 10/19/24 00:00 Room Air 10/18/24 22:36 Room Air 10/18/24 22:03 10/18/24 20:26 Room Air PG Care Time/CCT Total # of Minutes Spent Total Time Spent with Patient: Total time spent is greater than 50% in coordination of care (as documented) at patient's floor/unit and/or counseling patient: Coding Level of Care Code 28330 SUB INP/OBS CARE 3/50MIN Diagnoses Abnormal abdominal CT scan R93.5 Abnormal LFTs R79.89 Confusion R41.0 History of hemorrhagic cerebrovascular accident (CVA) with residual deficit I69.30
[2024-10-19] MEDS: PANTOprazole 40 MG/10 ML SYR IV SCH (10:16)
[2024-10-19] MEDS: metroNIDAZOLE 500 MG/100 ML BAG IV SCH (10:16)
[2024-10-19] MEDS: amLODIPine BESYLATE 5 MG TAB PO SCH (13:18)
[2024-10-19] MEDS: CIPROFLOXACIN / D5W 400 MG/200 ML BAG IV SCH (13:20)
--- NOTE | 2024-10-19 15:07 | Surgery Consultation ---
Date of Consultation October 19, 2024 Assessment & Plan (1) Abnormal LFTs: Presenting leukocytosis has resolved and LFTs are decreasing. Afebrile. No evidence of choledocholithiasis on MRCP Patient with evidence for cirrhosis on this study Question whether LFTs elevated due to transient choledocholithiasis. LFTs currently trending down. No acute surgical intervention. Will f/u HIDA ordered and patient may have a diet as tolerated at this time. Would recommend low fat/non dairy History of Present Illness Reason for Consultation: elevated LFTs Attending Physician: Dory Tate MD History of Present Illness 73-year-old male with a past medical history including occlusion of posterior cerebral artery, acute CVA, depression, GERD, history of kidney stones, hypertension, hyperlipidemia, and mild residual right-sided weakness. The patient presents to the emergency department via EMS due to family concerns regarding worsening weakness, fatigue and difficulty walking presents with elevated LFTs. No abdominal pain, nausea or vomiting. In the ED, labs revealed a mild leukocytosis to 13,000, elevated but improving LFTs: Tbili 5.2 decreased to 4.4 this am, AST 189 down to 102, ALT 267 initially 171, Alk P 210 to 164 this am, afebrile and HD stable. US with cholelithiasis mild to moderate GB wall thickening, MRCP with cholelithiasis, GB wall thickening, nodular liver suggestive of cirrhosis. The patient has been admitted to the medical service and surgery has been consulted. Upon my evaluation, the patient is mentating well, without AMS, denies abdominal pain, N/V and does not recall any prior episodes of abdominal pain or avoiding certain foods. Allergies Allergy/AdvReac Type Severity Reaction Status Date / Time sertraline Allergy Intermediate HIVES Verified 10/18/24 18:02 Penicillins Allergy Mild HIVES Verified 10/18/24 18:02 strawberry Allergy Unknown HIVES Verified 10/18/24 18:02 Home Medications Medication Instructions Recorded Confirmed Type pantoprazole 40 mg tablet,delayed 40 mg PO DAILY 12/19/19 10/18/24 History release acetaminophen 500 mg tablet 500 mg PO Q6H PRN Pain 12/20/19 10/18/24 History aspirin 81 mg tablet,delayed 81 mg PO QAM #90 tabs 02/22/22 10/18/24 Rx release atorvastatin 80 mg tablet (Lipitor) 80 mg PO DAILY #30 tabs 02/22/22 10/18/24 Rx amlodipine 5 mg tablet 5 mg PO DAILY 08/23/23 10/18/24 History Patient History Medical History (Updated 10/19/24 @ 14:27 by Ruma Agustin DO) H/O: stroke Unwitnessed fall Hyperlipidemia Hypertension No significant past medical history Surgical History No pertinent past surgical history Family History Other No pertinent family history in first degree relatives Social History Smoking Status: Never smoker Second Hand Exposure: No; Do You Dip or Chew Tobacco: No; Hx Alcohol Use: No Hx Substance Use: No Preferred Language: [place] Communication Ability: Effective 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 Beliefs That Will Affect Care: None marital status: Life Partner Current Living Situation: Family Other Information That Helps Us Care for You: No Feels Safe at Home: Yes Safety Concerns: Feels Safe At This Time Assistive Devices: None Physical Exam Constitutional: + obese; no acute distress, not ill appe aring and not diaphoretic jaundice Respiratory: normal respiratory effort; no respiratory distress, no labored breathing and does not use accessory muscles Gastrointestinal (Abdomen): non distended Soft Non-tender, without gaurding Psychiatric: Orientation: alert, oriented to place and cooperative Results & Data Vital Signs (Past 12 Hours) Vital Signs Temp Pulse Pulse Resp BP BP Pulse Ox 10/19/24 11:38 62 16 154/72 H 95 10/19/24 08:01 62 18 146/80 H 94 10/19/24 07:02 63 10/19/24 06:11 36.8 C 61 18 123/69 95 10/19/24 03:27 69 22 147/74 H 93 10/19/24 03:19 Pulse Ox O2 Del Method O2 Del Method O2 Flow Rate 10/19/24 11:38 Nasal Cannula 2 10/19/24 08:01 Nasal Cannula 2 10/19/24 07:02 10/19/24 06:11 Nasal Cannula 1 10/19/24 03:27 Room Air 10/19/24 03:19 93 Room Air PG Care Time/CCT Total # of Minutes Spent Total Time Spent with Patient: Total time spent is greater than 50% in coordination of care (as documented) at patient's floor/unit and/or counseling patient: Coding Level of Care Code 98367 IN/OBS CONSULT LVL 2,35M Diagnoses Abnormal LFTs R79.89
--- NOTE | 2024-10-20 05:27 | Surgery Progress Note ---
<Statement entered by Sajan Leon DO - 10/20/24 12:38> I have seen and examined this patient, he remains without abdominal pain or nausea, is tolerating a solid diet and remains non-tender. I agree with this plan. Date of Service October 20, 2024 Assessment & Plan (1) Abnormal LFTs: Plan: Patient has been admitted on the hospitalist service. From surgery perspective we recommend the following: Abdominal ultrasound on the 10/18/2024 shows cholelithiasis with some gallbladder wall thickening (the interpreting radiologist could not exclude acute cholecystitis Patient underwent an MRCP on 10/18/2024 that showed gallstones with gallbladder wall thickening Provide analgesics as needed Patient is currently tolerating oral intake which should continue Continue antibiotics in the form of Cipro and Flagyl while hospitalized Patient is tentatively scheduled for HIDA scan on 10/21/2024 for further evaluation of his gallbladder Additional recommendations from surgical service will pain is on the results of patient's HIDA scan Admission and Anticipated Discharge Date Admission Date: October 18, 2024 Subjective Patient is currently resting comfortably in bed. He denies any nausea or vomiting. He denies any fevers, shakes, or chills. He denies any abdominal pain. Physical Exam Gastrointestinal (Abdomen): Abdomen is soft and nondistended. There is no pain with palpation Results & Data Vital Signs (Past 12 Hours) Vital Signs Temp Pulse Pulse Resp BP Pulse Ox O2 Del Method 10/20/24 04:00 37 C 67 18 142/71 H Room Air 10/19/24 23:16 36.4 C L 69 18 141/76 H 93 Room Air 10/19/24 21:49 64 10/19/24 19:15 36.6 C 68 20 129/66 92 Room Air 10/19/24 19:00 Nasal Cannula O2 Flow Rate 10/20/24 04:00 10/19/24 23:16 10/19/24 21:49 10/19/24 19:15 10/19/24 19:00 2 PG Care Time/CCT Total # of Minutes Spent Total Time Spent with Patient: Total time spent is greater than 50% in coordination of care (as documented) at patient's floor/unit and/or counseling patient: Coding Level of Care Code 29679 SUB INP/OBS CARE 11/09MIN Diagnoses Abnormal LFTs R79.89
[2024-10-20 06:32] LABS: Basophils # (auto) 0.07 K/uL (0.00-0.20); Basophils % (auto) 0.6 %; Eosinophils # (auto) 0.28 K/uL (0.00-0.50); Eosinophils % (auto) 2.5 %; Hemoglobin 13.5 g/dl (14.0-18.0); Immature Granulocytes # (auto) 0.03 K/uL (0.01-0.20); Immature Granulocytes % (auto) 0.3 %; Lymphocytes % (auto) 13.5 %; Mean Corpuscular Hemoglobin 29.5 pg (25.0-34.0); Mean Corpuscular Hgb Conc 33.8 g/dL (32.0-36.0); Mean Corpuscular Volume 87.3 fL (80.0-100.0); Mean Platelet Volume 8.8 fL (9.4-12.4); Monocytes # (auto) 1.18 K/uL (0.11-0.59); Monocytes % (auto) 10.6 %; Neutrophils # (auto) 8.02 K/uL (1.40-6.50); Neutrophils % (auto) 72.5 %; Platelet Count 259 K/uL (130-400); RDW Coefficient of Variation 13.5 % (11.5-14.5); RDW Standard Deviation 43.7 fL (36.4-46.3); Red Blood Count 4.58 M/uL (4.70-6.10); White Blood Count 11.08 K/ul (4.8-10.8)
[2024-10-20 06:41] LABS: Albumin Globulin Ratio 1.3 (0.9-2); Albumin Level 3.6 gm/dl (3.4-5.0); BUN Creatinine Ratio 9.7 (10-20); Bilirubin,Total 2.4 mg/dl (0.2-1.0); Calcium 8.7 mg/dl (8.6-10.3); Creatinine Clr Calc Pharmacy 72.3 ml/min; Globulin 2.8 gm/dl (2.5-4.0); Magnesium 1.9 mg/dl (1.7-2.4); Potassium 3.7 mmol/L (3.5-5.1); Total Protein 6.4 gm/dl (6.0-8.3)
--- NOTE | 2024-10-20 08:07 | Hospitalist Progress Note ---
Date of Service October 20, 2024 Assessment & Plan (1) Abnormal abdominal CT scan: (2) Abnormal LFTs: (3) Confusion: (4) History of hemorrhagic cerebrovascular accident (CVA) with residual deficit: Plan The patient is a 73-year-old male with a past medical history including occlusio n of posterior cerebral artery, acute CVA, depression, GERD, history of kidney stones, hypertension, hyperlipidemia, and mild residual right-sided weakness. The patient presents to the emergency department via EMS due to family concerns regarding worsening weakness, fatigue and difficulty walking. Symptoms began around 730 this morning when he went to the bathroom and could not get up off the commode. He was able ultimately to get to the couch and sat down. He stayed today with his grandson, who became concerned when the patient was still not back to his usual self about 11:00 AM. Patient does have a history of chronic right-sided weakness, which family thought may have been a little bit worse, and due to persistence of decreased responsiveness, confusion, EMS was called, and patient was brought to the ED for assessment. #Abnormal CT scan/abnormal LFTs- - Total bilirubin 5.2, AST 189, ALT 267, alkaline phosphatase 210 : Improving - procal: 1.23 - Ultrasound of abdomen shows cholelithiasis, and mild to moderate gallbladder wall thickening. Correlate with clinical Oleary sign. Acute cholecystitis is not excluded - MRCP shows cholelithiasis. Thickening of the gallbladder wall which could relate to chronic liver disease or acute cholecystitis. Suspect nodular contour of the liver concerning for cirrhosis. Patient motion degrades image quality. Moderate hiatal hernia - HIDA scheduled for 10/21/24 - spoke with gen surgery, cleared for diet , no plans for intervention while inpt but awaiting HIDA , (outpatient follow up with gen surgery and GI) - on Cipro 400 mg IV every 12 hours , Flagyl 500 mg IV every 8 hours - Zofran 4 mg IV every 6 hours as needed - Pantoprazole 40 mg IV to PO - hep C pending #Confusion/generalized weakness- resolved - History of residual right sided deficit, unchanged per patient - CT head without contrast negative - CTA head and neck negative - MRI brain showed no acute findings - BioFire test negative - UA looks negative - Symptoms most likely associated with liver dysfunction #Hypertension- - resume amlodipine - Hydralazine 10 mg IV every 6 hours as needed for systolic blood pressure above 160 - NSS at 125 mL/h #HLD - hold statin in the setting of abnormal LFTs Admission and Anticipated Discharge Date Admission Date: October 18, 2024 Subjective No acute events overnight Currently no new complaints Review of Systems Review of Systems: comprehensive ROS neg Physical Exam Physical Exam: Gen: NAD, lying in bed comfortable HEENT: NC/AT, MMM Lungs: CTAB CVS: s1s2nl, RRR Abd: soft, NT, nl bowerl sounds Ext: no edema Results & Data Results & Data Vital Signs (Past 12 Hours) Vital Signs Temp Pulse Pulse Resp BP Pulse Ox O2 Del Method 10/20/24 07:42 73 10/20/24 07:25 36.8 C 76 18 143/75 H 90 Room Air 10/20/24 04:00 37 C 67 18 142/71 H Room Air 10/19/24 23:16 36.4 C L 69 18 141/76 H 93 Room Air 10/19/24 21:49 64 PG Care Time/CCT Total # of Minutes Spent Total Time Spent with Patient: Total time spent is greater than 50% in coordination of care (as documented) at patient's floor/unit and/or counseling patient: Coding Level of Care Code 78550 SUB INP/OBS CARE 2/35MIN Diagnoses Abnormal abdominal CT scan R93.5 Abnormal LFTs R79.89 Confusion R41.0 History of hemorrhagic cerebrovascular accident (CVA) with residual deficit I69.30
[2024-10-20] MEDS: PANTOprazole 40 MG TAB PO SCH (08:52)
[2024-10-21 08:03] LABS: Basophils # (auto) 0.05 K/uL (0.00-0.20); Basophils % (auto) 0.4 %; Eosinophils # (auto) 0.42 K/uL (0.00-0.50); Eosinophils % (auto) 3.7 %; Hematocrit (blood only) 38.3 % (42.0-52.0); Hemoglobin 12.8 g/dl (14.0-18.0); Immature Granulocytes # (auto) 0.02 K/uL (0.01-0.20); Immature Granulocytes % (auto) 0.2 %; Lymphocytes # (auto) 2.16 K/uL (1.20-3.40); Lymphocytes % (auto) 19.2 %; Mean Corpuscular Hemoglobin 29.3 pg (25.0-34.0); Mean Corpuscular Hgb Conc 33.4 g/dL (32.0-36.0); Mean Corpuscular Volume 87.6 fL (80.0-100.0); Mean Platelet Volume 9.1 fL (9.4-12.4); Monocytes # (auto) 1.26 K/uL (0.11-0.59); Monocytes % (auto) 11.2 %; Neutrophils # (auto) 7.34 K/uL (1.40-6.50); Neutrophils % (auto) 65.3 %; Platelet Count 247 K/uL (130-400); RDW Coefficient of Variation 13.7 % (11.5-14.5); RDW Standard Deviation 44.1 fL (36.4-46.3); Red Blood Count 4.37 M/uL (4.70-6.10); White Blood Count 11.25 K/ul (4.8-10.8)
[2024-10-21 08:32] LABS: Albumin Globulin Ratio 1.3 (0.9-2); Albumin Level 3.4 gm/dl (3.4-5.0); BUN Creatinine Ratio 10.4 (10-20); Bilirubin,Total 1.6 mg/dl (0.2-1.0); Calcium 8.3 mg/dl (8.6-10.3); Creatinine Clr Calc Pharmacy 64.6 ml/min; Globulin 2.7 gm/dl (2.5-4.0); Magnesium 1.9 mg/dl (1.7-2.4); Potassium 3.8 mmol/L (3.5-5.1); Total Protein 6.1 gm/dl (6.0-8.3)
[2024-10-21] MEDS: MoRPHine SULFATE 2 MG/ML CARP IV PRN (11:53)
[2024-10-21] MEDS: SINCALIDE 1.8 MCG in SODIUM CHLORIDE 0.9% 100 ML IV ONE (12:38)
--- NOTE | 2024-10-21 13:18 | Nuclear Medicine Report ---
NUCLEAR MEDICINE HEPATOBILIARY SCAN CLINICAL HISTORY: Cholelithiasis. Abnormal liver function tests. COMPARISON: Right upper quadrant ultrasound and MRCP October 18, 2024. TECHNIQUE: 5.3 mCi of technetium 99m Choletec IV was injected at 5.3. Immediately following injecti on, imaging of the abdomen was carried out for 60 minutes in the anterior projection. Gallbladder act ivity was not identified at 60 minutes. Therefore, 2 mg of morphine was administered IV as per protoc ol. FINDINGS: Hepatic uptake of radiotracer is prominent and homogeneous. Activity was identified within the small bowel and common bile duct at 15 minutes. Gallbladder activity was not identified at 60 mi nutes. There is prompt visualization of gallbladder activity following morphine administration. IMPRESSION: Visualization of gallbladder activity following morphine administration. These findings suggest chronic cholecystitis. No evidence for acute cholecystitis. ACT 112: Negative or not required by law. Electronically signed by: Drake Ryan M.D. 10/21/2024 1:16 PM
--- NOTE | 2024-10-21 13:54 | Hospitalist Progress Note ---
Date of Service October 21, 2024 Assessment & Plan (1) Abnormal abdominal CT scan: (2) Abnormal LFTs: (3) Confusion: (4) History of hemorrhagic cerebrovascular accident (CVA) with residual deficit: Plan The patient is a 73-year-old male with a past medical history including occlusio n of posterior cerebral artery, acute CVA, depression, GERD, history of kidney stones, hypertension, hyperlipidemia, and mild residual right-sided weakness. The patient presents to the emergency department via EMS due to family concerns regarding worsening weakness, fatigue and difficulty walking. Symptoms began around 730 this morning when he went to the bathroom and could not get up off the commode. He was able ultimately to get to the couch and sat down. He stayed today with his grandson, who became concerned when the patient was still not back to his usual self about 11:00 AM. Patient does have a history of chronic right-sided weakness, which family thought may have been a little bit worse, and due to persistence of decreased responsiveness, confusion, EMS was called, and patient was brought to the ED for assessment. #Abnormal CT scan/abnormal LFTs- -The liver enzymes are trending down -It could have been due to a gall stone which may have passed, given evidence of gall stones on US and MRCP - HIDA did not show any evidence of acute cholecystitis. Only chronic cholecystitis - spoke with gen surgery, cleared for diet , no plans for intervention - on Cipro 400 mg IV every 12 hours , Flagyl 500 mg IV every 8 hours - Zofran 4 mg IV every 6 hours as needed - Pantoprazole 40 mg IV to PO - hep C pending #Confusion/generalized weakness- resolved - History of residual right sided deficit, unchanged per patient - CT head without contrast negative - CTA head and neck negative - MRI brain showed no acute findings - BioFire test negative - UA looks negative - Symptoms most likely associated with liver dysfunction #Hypertension- - resume amlodipine - Hydralazine 10 mg IV every 6 hours as needed for systolic blood pressure above 160 - NSS at 125 mL/h #HLD - hold statin in the setting of abnormal LFTs Hopefully d/c in the next 24 hrs if ok by surgery Admission and Anticipated Discharge Date Admission Date: October 18, 2024 Subjective patient seen and examined, no new complaints Review of Systems Review of Systems: All systems reviewed are negative, apart from the ones contained in the history. Physical Exam Physical Exam: The patient is awake, alert and oriented 3, well developed and well nourished, normocephalic and atraumatic, lying in bed and in no acute distress. HEENT--PERRL, EOMI, mucous membranes and oropharynx mildly dry Neck--supple. No JVD. No bruits. Thyroid normal, trachea midline, no adenopathy. Heart--normal S1 and S2. No murmurs, rubs or gallops. Lungs--clear bilaterally, no respiratory distress, no accessory muscle use. Abdomen--normal bowel sounds and soft. Extremities--no cyanosis or clubbing. No edema. Dermatologic--normal skin turgor, normal color, no abnormal lymph nodes, no rash. Neurologic--cranial nerves II through XII grossly intact. Rheumatologic--normal range of motion. Psychiatric--normal affect. Results & Data Results & Data Vital Signs (Past 12 Hours) Vital Signs Temp Pulse Pulse Resp BP Pulse Ox O2 Del Method 10/21/24 12:28 98.1 F 91 H 20 118/79 93 Room Air 10/21/24 07:17 62 10/21/24 02:47 97.5 F L 80 17 122/70 93 Room Air PG Care Time/CCT Total # of Minutes Spent Total Time Spent with Patient: Total time spent is greater than 50% in coordination of care (as documented) at patient's floor/unit and/or counseling patient: Coding Level of Care Code 22922 SUB INP/OBS CARE 2/35MIN Diagnoses Abnormal abdominal CT scan R93.5 Abnormal LFTs R79.89 Confusion R41.0 History of hemorrhagic cerebrovascular accident (CVA) with residual deficit I69.30 Time Spent (min) 35
--- NOTE | 2024-10-21 14:00 | Surgery Progress Note ---
Date of Service October 21, 2024 Assessment & Plan (1) Abnormal LFTs: (2) Chronic cholecystitis with calculus: Plan: I have seen and examined this patient this am. He is HD stable. WBC slightly elevated to 11.25 from 11.08 yesterday, neutrophil shift decreased and LFTs continue to trend down, he has remained afebrile. HIDA reports suggestion of chronic cholecystitis as GB fills after Morphine administration. I have explained the results to the patient. He would prefer to speak with his family before deciding on doing anything. I have suggested that he is able to follow up in the office to plan for cholecystectomy in 2 weeks. He would go home on antibiotics for a total of a 10 day course. D/C per medicine. Please reach out to the surgical [facility] concierge if there are further questions or concerns. Dr. Hughes will be covering this week. Admission and Anticipated Discharge Date Admission Date: October 18, 2024 Subjective Patient seen and examined this am eating lunch. Continues to deny abdominal pain or nausea. Denies having any pain during the HIDA test today Physical Exam Constitutional: + obese; not ill appearing, not in distr ess and not diaphoretic Respiratory: normal respiratory effort; no respiratory distress, no labored breathing and does not use accessory muscles Gastrointestinal (Abdomen): Percussion/Palpation: abdomen soft; abdomen nontender, no guarding and abdomen not rigid Results & Data Vital Signs (Past 12 Hours) Vital Signs Temp Pulse Pulse Resp BP Pulse Ox O2 Del Method 10/21/24 12:28 36.7 C 91 H 20 118/79 93 Room Air 10/21/24 07:17 62 10/21/24 02:47 36.4 C L 80 17 122/70 93 Room Air PG Care Time/CCT Total # of Minutes Spent Total Time Spent with Patient: Total time spent is greater than 50% in coordination of care (as documented) at patient's floor/unit and/or counseling patient: Coding Level of Care Code 98777 SUB INP/OBS CARE 11/09MIN Diagnoses Abnormal LFTs R79.89 Chronic cholecystitis with calculus K80.10
[2024-10-22 04:27] VITALS: RESP 18
--- NOTE | 2024-10-22 07:57 | Communication Note ---
Date of Service: October 22, 2024 Patient refused AM labs , does not want surgical intervention this admission. He may follow up with general surgery as an outpatient, as discussed with surgeon Dr. Leon. General surgery will sign off at this time, call with questions/concerns.
[2024-10-22 11:23] VITALS: BP 127/75; PULSE 64; TEMP 98.4; O2SAT 93
--- NOTE | 2024-10-22 11:41 | Discharge Summary ---
Date of Service October 22, 2024 Admission HPI Per Admitting Provider The patient is a 73-year-old male with a past medical history including occlusion of posterior cerebral artery, acute CVA, depression, GERD, history of kidney stones, hypertension, hyperlipidemia, and mild residual right-sided weakness. The patient presents to the emergency department via EMS due to family concerns regarding worsening weakness, fatigue and difficulty walking. Symptoms began around 730 this morning when he went to the bathroom and could not get up off the commode. He was able ultimately to get to the couch and sat down. He stayed today with his grandson, who became concerned when the patient was still not back to his usual self about 11:00 AM. Patient does have a history of chronic right-sided weakness, which family thought may have been a little bit worse, and due to persistence of decreased responsiveness, confusion, EMS was called, and patient was brought to the ED for assessment. Admission Exam (Per Admitting) Constitutional The patient is awake, alert and oriented 3, well developed and well nourished, normocephalic and atraumatic, lying in bed and in no acute distress. HEENT--PERRL, EOMI, mucous membranes and oropharynx mildly dry Neck--supple. No JVD. No bruits. Thyroid normal, trachea midline, no adenopathy. Heart--normal S1 and S2. No murmurs, rubs or gallops. Lungs--clear bilaterally, no respiratory distress, no accessory muscle use. Abdomen--normal bowel sounds and soft. Extremities--no cyanosis or clubbing. No edema. Dermatologic--normal skin turgor, normal color, no abnormal lymph nodes, no rash. Neurologic--cranial nerves II through XII grossly intact. Rheumatologic--normal range of motion. Psychiatric--normal affect. Discharge Data Consultations 10/18/24 23:17 ED Decision to Admit Stat 10/19/24 04:07 Consult General Surgery Routine Hospital Course (1) Abnormal abdominal CT scan: (2) Abnormal LFTs: (3) Confusion: (4) History of hemorrhagic cerebrovascular accident (CVA) with residual deficit: Plan The patient is a 73-year-old male with a past medical history including occlusion of posterior cerebral artery, acute CVA, depression, GERD, history of kidney stones, hypertension, hyperlipidemia, and mild residual right-sided weakness. The patient presents to the emergency department via EMS due to family concerns regarding worsening weakness, fatigue and difficulty walking. Symptoms began around 730 this morning when he went to the bathroom and could not get up off the commode. He was able ultimately to get to the couch and sat down. He stayed today with his grandson, who became concerned when the patient was still not back to his usual self about 11:00 AM. Patient does have a history of chronic right-sided weakness, which family thought may have been a little bit worse, and due to persistence of decreased responsiveness, confusion, EMS was called, and patient was brought to the ED for assessment. #Abnormal CT scan/abnormal LFTs- -The liver enzymes are trending down -It could have been due to a gall stone which may have passed, given evidence of gall stones on US and MRCP - HIDA did not show any evidence of acute cholecystitis. Only chronic cholecystitis - spoke with gen surgery, cleared for diet , no plans for intervention - on Cipro 400 mg IV every 12 hours , Flagyl 500 mg IV every 8 hours -Transition to PO antibiotics for 10 more days at discharge #Confusion/generalized weakness- resolved - History of residual right sided deficit, unchanged per patient - CT head without contrast negative - CTA head and neck negative - MRI brain showed no acute findings - BioFire test negative - UA looks negative - Symptoms most likely associated with liver dysfunction #Hypertension- - resume amlodipine - Hydralazine 10 mg IV every 6 hours as needed for systolic blood pressure above 160 - NSS at 125 mL/h #HLD - hold statin in the setting of abnormal LFTs d/c home, f/u with surgery outpatient Coding Level of Care Code 28120 INP/OBS DISCH >30 MIN Diagnoses Abnormal abdominal CT scan R93.5 Abnormal LFTs R79.89 Confusion R41.0 History of hemorrhagic cerebrovascular accident (CVA) with residual deficit I69.30 Time Spent (min) 35
[2024-10-22 11:50] LABS: Basophils # (auto) 0.05 K/uL (0.00-0.20); Basophils % (auto) 0.5 %; Eosinophils # (auto) 0.49 K/uL (0.00-0.50); Eosinophils % (auto) 5.1 %; Hematocrit (blood only) 40.3 % (42.0-52.0); Hemoglobin 13.6 g/dl (14.0-18.0); Immature Granulocytes # (auto) 0.02 K/uL (0.01-0.20); Immature Granulocytes % (auto) 0.2 %; Lymphocytes # (auto) 2.03 K/uL (1.20-3.40); Lymphocytes % (auto) 20.9 %; Mean Corpuscular Hemoglobin 29.7 pg (25.0-34.0); Mean Corpuscular Hgb Conc 33.7 g/dL (32.0-36.0); Mean Platelet Volume 8.7 fL (9.4-12.4); Monocytes # (auto) 1.15 K/uL (0.11-0.59); Monocytes % (auto) 11.9 %; Neutrophils # (auto) 5.95 K/uL (1.40-6.50); Neutrophils % (auto) 61.4 %; Platelet Count 272 K/uL (130-400); RDW Coefficient of Variation 13.7 % (11.5-14.5); RDW Standard Deviation 44.4 fL (36.4-46.3); Red Blood Count 4.58 M/uL (4.70-6.10); White Blood Count 9.69 K/ul (4.8-10.8)
[2024-10-22 12:09] LABS: Albumin Globulin Ratio 1.2 (0.9-2); Albumin Level 3.5 gm/dl (3.4-5.0); BUN Creatinine Ratio 12.1 (10-20); Bilirubin,Total 1.3 mg/dl (0.2-1.0); Calcium 8.6 mg/dl (8.6-10.3); Creatinine Clr Calc Pharmacy 64.4 ml/min; Globulin 2.9 gm/dl (2.5-4.0); Potassium 4.2 mmol/L (3.5-5.1); Total Protein 6.4 gm/dl (6.0-8.3)
[2024-10-22] MEDS: INFLUENZA VACC TS2024-25(65y+)/PF (IIV3) 0.5mL Syr IM ONE (14:09)
[2024-10-22] MEDS: PNEUMOCOCCAL VACCINE (PCV20) 20-VAL CONJ-DIP CRM/PF 0.5 ML SYR IM ONE (14:10)
== END 2024-10-22 14:17 | disposition home or self-care (01) | DRG 445 ==
LOC: ED 13:33 → SUATTDRO 23:53 → EDINP 23:53 → 2S 10-19 18:50